=== PATIENT | female | born 1975 | race Caucasian/White ===

== ENCOUNTER 2017-10-05 14:55 | Emergency (ER) | payer MEDICAID, SELFPAY ==
[2017-10-05 14:56] VITALS: BP 137/100; PULSE 107; RESP 16; TEMP 36.7; O2SAT 97; BMI 29.5
--- NOTE | 2017-10-05 15:09 | EKG12_ITS ---
Test Reason : CP Blood Pressure : / mmHG Vent. Rate : 100 BPM Atrial Rate : 100 BPM P-R Int : 118 ms QRS Dur : 074 ms QT Int : 350 ms P-R-T Axes : 049 049 038 degrees QTc Int : 451 ms Normal sinus rhythm Normal ECG Confirmed by DONNA GAMING MD ([id number]), field map editor JESSICA SOTELO ([id number]) on 10/07/2017 3:21:19 PM Referred By: BONNIE Confirmed By:DONNA GAMING MD
--- NOTE | 2017-10-05 15:10 | CT_ITS ---
STUDY: CTA CHEST REASON FOR EXAM: Female, 42 years old. Chest pain and left rib pain increased with breathing. History of smoking and hypertension. RADIATION DOSAGE (If Supplied By Facility): CTDIvol = ( 6.79 ) mGy, DLP = ( 333.92 ) mGycm TECHNIQUE: The examination was performed with the intravenous administration of 75 ml of Isovue 370 contrast material. Post-processing of the angiographic images was performed, with multiplanar reformation and 3D reconstruction. Individualized dose optimization techniques were used for this CT. COMPARISON: None. FINDINGS: Normal enhancement of the main pulmonary artery and right and left pulmonary arteries. Normal enhancement of the bilateral peripheral pulmonary arteries. There is no demonstrated pulmonary embolism. Normal thoracic aorta without aneurysm. Aberrant right subclavian artery which passes posteriorly to the trachea and esophagus without aneurysm. There is no demonstrated aortic dissection. Normal heart and pericardium. Negative for coronary calcifications. Normal mediastinum. Normal hilar regions. Normal visualized trachea and bronchi. The lungs are well expanded. Normal pulmonary parenchyma. Normal pleura. Bilateral small posterior fatty diaphragmatic hernias/[place] herniations. Normal chest wall structures. Normal osseous structures. Normal visualized upper abdomen. CT/CTA Chest W/WO Contrast IMPRESSION: Negative for pulmonary embolus. Normal thoracic aorta. Aberrant right subclavian artery. Negative for coronary calcifications. No acute pulmonary findings. Negative for pleural effusion. Bilateral small posterior fatty diaphragmatic hernias/[place] herniation. Electronically Signed: Malena Garcia MD at 16:53 EDT , Service support ,
--- NOTE | 2017-10-05 15:14 | ED.DCSUM_ITS ---
- ER Visit Summary Date of Service: 10/05/17 Chief Complaint: Chest pain History of Present Illness: The patient is a 42 F presenting with left lateral chest wall pain. It is worsened with deep inspiration. She denies shortness of breath. Denies change with exertion. Denies cough or fever. She went to urgent care and they were concerned about possibility of PE. She has no PE/DVT risk factors. She is a smoker. She has a family history of early heart disease. No other coronary artery disease risk factors. Physical Examination: Vitals are stable. Patient is afebrile. Alert no acute distress. HEENT exam is unremarkable. Neck is supple. Lungs are clear and equal bilaterally. Mild left lateral chest wall tenderness with no crepitus Heart is regular and tachycardic Abdomen is soft nontender nondistended. No guarding or rebound. Extremities are unremarkable. Skin is warm and dry. No rash. No focal neurologic deficit. Remainder of exam is unremarkable. Emergency Department Course and Treatment: Patient is given Toradol IV. EKG is sinus rhythm rate of 100, no acute ischemic changes. CBC, chemistries unremarkable. Troponin is negative. CTA chest shows no PE or dissection. Repeat troponin was obtained and is negative. She is resting comfortably in the ED on reevaluation. She is advised to follow-up with her primary care physician. Advised return to ED for worsening complaints. Disposition: Discharge home Impression: Left chest wall pain This note was generated with [employer] dictation software. It may contain incorrect words, spelling, and punctuation that were not noted in review of the chart prior to signing ED Disposition - Plan for ED Patient: Chief Complaint: Chest Other Referrals: Donald Henderson MD [Primary Care Provider] -
[2017-10-05] MEDS: Ketorolac 15 MG/ML Vial IV (15:31)
[2017-10-05 15:44] LABS: Absolute Lymphocyte Count 1.73 X10^3/ul (0.83-4.51); Absolute Neutrophil Count 5.1 X10^3/uL (2.0-7.7); Basophil# 0.02 X10^3/uL; Basophil% 0.3 % (0-1); Eosinophil# 0.15 X10^3/uL; Hematocrit 42.4 % (37-47); Hemoglobin 14.2 g/dl (12.0-15.0); Lymphocyte # 1.73 X10^3/ul (4.0); Lymphocyte % 23.3 % (19-41); Mean Corp Hgb Conc 33.5 g/gl (32-36); Mean Corpuscular Hgb 32.3 pg (27.0-32.0); Mean Corpuscular Volume 96.4 fL (81-99); Mean Platelet Vol. 10.6 fl (6.2-12.0); Monocyte# 0.39 X10^3/uL; Monocyte% 5.3 % (0-10); Neutrophil # 5.12 X10^3/uL (2.7-7.7); Neutrophil % 69.1 % (47-70); Platelet Count 216 K/mm3 (150-450); RBC Distribution Width CV 12.2 % (11.6-14.6); RBC Distribution Width SD 42.8 fl (35.1-43.9); White Blood Count 7.4 K/mm3 (4.4-11.0)
[2017-10-05 15:45] LABS: POSITIVE COUNT NO; POSITIVE DIFFERENTIAL NO; POSITIVE MORPHOLOGY NO
[2017-10-05 16:00] LABS: Anion Gap 10 (5-15); BUN 10 mg/dL (7-18); BUN/Creat Ratio 13.7 RATIO (10-20); Calcium,Total 8.7 mg/dL (8.5-10.1); Chloride 103 mmol/L (98-107); Creatinine, Serum 0.73 mg/dL (0.55-1.02); EST Glomerular Filtration Rate 93 mL/min (>60); Est Glom Filt Rate - Afr Amer 113 mL/min (>60); Estimated Creatinine Clearance 76.53 ml/min; Glucose 91 mg/dL (74-106); Potassium 3.8 mmol/L (3.5-5.1); Sodium Level 139 mmol/L (136-145)
[2017-10-05 17:44] VITALS: BP 125/67; PULSE 87; RESP 18; O2SAT 96
--- NOTE | 2017-10-05 19:27 | ED.DEP ---
ED Disposition - Plan for ED Patient: Chief Complaint: Chest Other Instructions: ED Chest Pain Atypical Unkn Cause Prescriptions: Naproxen [Naprosyn] 500 mg PO BID PRN #20 tablet Referrals: Donald Henderson MD [Primary Care Provider] -
[2017-10-05 19:45] VITALS: BP 126/61; PULSE 90; RESP 18; O2SAT 100
== END 2017-10-05 19:46 | disposition home or self-care (01) ==
PROVIDERS: Emergency Provider Emergency Medicine; Family Provider Internal Medicine; PCP Internal Medicine
DX: R07.89 Other chest pain (principal); F17.200 Nicotine dependence, unspecified, uncomplicated; Z82.49 Family history of ischemic heart disease and other diseases of the circulatory system
CPT/HCPCS: 71275; 80048; 84484; 85025; 93005; 99284; Q9967; A4216

== ENCOUNTER → 2017-10-14 10:24 | Outpatient (CLI) | payer MEDICAID, SELFPAY ==
--- NOTE | 2017-10-14 10:35 | RAD_ITS ---
STUDY: X-RAY - CERVICAL SPINE REASON FOR EXAM: Female, 42 years old. Neck pain. TECHNIQUE: 6 view(s) of the cervical spine were obtained. COMPARISON: None FINDINGS: Normal anterior atlantoaxial articulation. Normal odontoid process. Normal cervical lordosis. Normal vertebral bodies and endplates. There is minimal disc space narrowing most marked at C6-7. Normal visualized intervertebral neuroforamina. There is no evidence of acute fracture or loss of vertebral axial height. There is maintenance of normal alignment. The soft tissue structures are unremarkable. RAD/Cerv Spine 4 or 5 Views IMPRESSION: Mild disc degeneration at C6-7. Electronically Signed: Gianluca Campos DO at 14:49 EDT Tel [phone], Service support ,
== END ==
PROVIDERS: Family Provider Internal Medicine; PCP Internal Medicine; Visit Provider Orthopaedic Surgery
DX: M54.2 Cervicalgia (principal)
CPT/HCPCS: 72050

== ENCOUNTER 2017-10-31 12:40 | Emergency (ER) | payer MEDICAID, SELFPAY ==
[2017-10-31 12:41] VITALS: BP 140/108; PULSE 89; RESP 16; TEMP 37.2; O2SAT 98; BMI 29.5
[2017-10-31 12:58] VITALS: BP 143/92; PULSE 88; RESP 17; O2SAT 98
--- NOTE | 2017-10-31 13:07 | EKG12_ITS ---
Test Reason : CP Blood Pressure : / mmHG Vent. Rate : 087 BPM Atrial Rate : 087 BPM P-R Int : 110 ms QRS Dur : 078 ms QT Int : 356 ms P-R-T Axes : 042 043 055 degrees QTc Int : 428 ms Sinus rhythm with short [place] Otherwise normal ECG Confirmed by AMBERLY COTA, DONNA ([id number]), editor publications JESSICA SOTELO ([id number]) on 11/04/2017 1:49:22 PM Referred By: CLAUDINE/FARHAN Confirmed By:DONNA GAMING MD
--- NOTE | 2017-10-31 13:10 | RAD_ITS ---
STUDY: X-RAY CHEST REASON FOR EXAM: Female, 42 years old. Sternal chest pain. Dizziness and diaphoresis. TECHNIQUE: Single AP portable view of the chest. COMPARISON: None. FINDINGS: EKG electrodes are seen. The lungs are clear and expanded. There is no demonstrated pleural abnormality. Normal size heart. Normal mediastinum and lang. Normal visualized pulmonary arteries. There is atherosclerotic tortuosity of the aortic arch and descending thoracic aorta. Normal visualized thoracic spine. Normal visualized ribs, clavicles, and shoulders. There is no demonstrated abnormality of the visualized soft tissue structures of the upper abdomen. RAD/Chest 1 View (Portable) IMPRESSION: No acute abnormality is seen. Electronically Signed: Aaron Zhong MD at 13:44 EDT Tel [phone], Service support ,
[2017-10-31 13:20] LABS: Absolute Neutrophil Count 4.4 X10^3/uL (2.0-7.7); Basophil# 0.03 X10^3/uL; Basophil% 0.4 % (0-1); Eosinophil# 0.19 X10^3/uL; Eosinophils% 2.8 % (0-5); Hematocrit 43.9 % (37-47); Hemoglobin 14.8 g/dl (12.0-15.0); Mean Corp Hgb Conc 33.7 g/gl (32-36); Mean Corpuscular Hgb 32.2 pg (27.0-32.0); Mean Corpuscular Volume 95.4 fL (81-99); Mean Platelet Vol. 10.5 fl (6.2-12.0); Monocyte# 0.44 X10^3/uL; Monocyte% 6.6 % (0-10); Neutrophil % 66.1 % (47-70); Platelet Count 207 K/mm3 (150-450); RBC Distribution Width CV 12.3 % (11.6-14.6); White Blood Count 6.7 K/mm3 (4.4-11.0)
[2017-10-31 13:21] LABS: POSITIVE COUNT NO; POSITIVE DIFFERENTIAL NO; POSITIVE MORPHOLOGY NO
[2017-10-31 13:38] LABS: Anion Gap 7 (5-15); BUN 13 mg/dL (7-18); BUN/Creat Ratio 16.5 RATIO (10-20); Chloride 105 mmol/L (98-107); Creatinine, Serum 0.79 mg/dL (0.55-1.02); EST Glomerular Filtration Rate 85 mL/min (>60); Est Glom Filt Rate - Afr Amer 103 mL/min (>60); Estimated Creatinine Clearance 70.72 ml/min; Glucose 73 mg/dL (74-106); Potassium 3.9 mmol/L (3.5-5.1); Sodium Level 138 mmol/L (136-145)
[2017-10-31 15:04] VITALS: O2SAT 98
[2017-10-31 15:05] VITALS: BP 130/89; PULSE 67; RESP 16; O2SAT 98
--- NOTE | 2017-10-31 15:06 | ED.VISSUMM ---
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 Henderson. She reports 10:00 this morning while walking around she had the onset of a left-sided chest pain. She describes this as a pounding heart. States that it lasts approximately 30 minutes. Nothing seemed to make this worse including exertion or breathing. Also, nothing made this better. Pain was 10 out of 10 at worst and she is pain-free currently. She does report that she got clammy and short of breath when this occurred. Patient reports that this is the third time this week that she has had an episode like this. They are not related to exertion. She then relates that she began Wellbutrin 2 weeks ago for smoking sensation and doubled her dose earlier this week. Physical Examination: Vitals: Stable. Afebrile. General: Well-nourished and well-developed. Head: Normocephalic atraumatic. Neck: Supple, no lymphadenopathy. No JVD. Nontender. Cardiovascular: Regular rate and rhythm. No murmurs. Respiratory: No respiratory distress. Clear to auscultation bilaterally. Abdominal: Soft, nontender, nondistended, normal bowel sounds. No guarding, rebound, or peritoneal signs. Back: Nontender. Extremities: Nontender, no edema. Skin: Normal color, no rash. Neurologic: Alert and oriented ?3. Cranial nerves II through XII are intact. Normal strength and sensation. Psych: Normal affect. Test Results: EKG is sinus at 87 with a short [place] interval of 78 and is otherwise normal. Troponin is negative. Chem-7 is more for glucose 73. CBC is normal. Chest x-ray is normal. Emergency Department Course and Treatment: Had a prolonged discussion the patient about her symptoms and potential causes. This does not seem to be cardiac in etiology. Treatment Plan: I have suggested that she stop the Wellbutrin and follow-up with her primary care physician in 3-5 days not improving. Return to the emergency department for any worsening symptoms. Disposition: To home in improved and stable condition. Impression: 1. Atypical chest pain. This note was generated with [employer] software. It may contain incorrect words, spelling, and punctuation that were not noted in review of the chart prior to signing ED Disposition - Plan for ED Patient: Disposition: Home or Assisted Living Chief Complaint: Chest Pain Instructions: ED Chest Pain Atypical Unkn Cause Referrals: Donald Henderson MD [Primary Care Provider] - 3-5 Days if not improving
[2017-10-31] MEDS: 0.9% Normal Saline 1,000 ML 1000 ML IV (15:09)
--- NOTE | 2017-10-31 15:13 | ED.DCSUM_ITS ---
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 Henderson. She reports 10:00 this morning while walking around she had the onset of a left- sided chest pain. She describes this as a pounding heart. States that it lasts approximately 30 minutes. Nothing seemed to make this worse including exertion or breathing. Also, nothing made this better. Pain was 10 out of 10 at worst and she is pain-free currently. She does report that she got clammy and short of breath when this occurred. Patient reports that this is the third time this week that she has had an episode like this. They are not related to exertion. She then relates that she began Wellbutrin 2 weeks ago for smoking sensation and doubled her dose earlier this week. Physical Examination: Vitals: Stable. Afebrile. General: Well-nourished and well-developed. Head: Normocephalic atraumatic. Neck: Supple, no lymphadenopathy. No JVD. Nontender. Cardiovascular: Regular rate and rhythm. No murmurs. Respiratory: No respiratory distress. Clear to auscultation bilaterally. Abdominal: Soft, nontender, nondistended, normal bowel sounds. No guarding, rebound, or peritoneal signs. Back: Nontender. Extremities: Nontender, no edema. Skin: Normal color, no rash. Neurologic: Alert and oriented ?3. Cranial nerves II through XII are intact. Normal strength and sensation. Psych: Normal affect. Test Results: EKG is sinus at 87 with a short [place] interval of 78 and is otherwise normal. Troponin is negative. Chem-7 is more for glucose 73. CBC is normal. Chest x-ray is normal. Emergency Department Course and Treatment: Had a prolonged discussion the patient about her symptoms and potential causes. This does not seem to be cardiac in etiology. Treatment Plan: I have suggested that she stop the Wellbutrin and follow-up with her primary care physician in 3-5 days not improving. Return to the emergency department for any worsening symptoms. Disposition: To home in improved and stable condition. Impression: 1. Atypical chest pain. This note was generated with [employer] software. It may contain incorrect words, spelling, and punctuation that were not noted in review of the chart prior to signing ED Disposition - Plan for ED Patient: Disposition: Home or Assisted Living Chief Complaint: Chest Pain Instructions: ED Chest Pain Atypical Unkn Cause Referrals: Donald Henderson MD [Primary Care Provider] - 3-5 Days if not improving
[2017-10-31 15:21] VITALS: BP 129/90; PULSE 61; RESP 15; O2SAT 98
== END 2017-10-31 15:22 | disposition home or self-care (01) ==
PROVIDERS: Emergency Provider Emergency Medicine; Family Provider Internal Medicine; PCP Internal Medicine
DX: R07.89 Other chest pain (principal); R23.1 Pallor; R00.2 Palpitations; R06.00 Dyspnea, unspecified; R42 Dizziness and giddiness; R61 Generalized hyperhidrosis; I10 Essential (primary) hypertension; M54.9 Dorsalgia, unspecified; M54.2 Cervicalgia; G89.29 Other chronic pain; Z90.710 Acquired absence of both cervix and uterus; F17.200 Nicotine dependence, unspecified, uncomplicated; Z79.82 Long term (current) use of aspirin; Z79.899 Other long term (current) drug therapy
CPT/HCPCS: 71045; 80048; 84484; 85025; 93005; 96360; 99284

== ENCOUNTER 2017-11-04 09:12 | Emergency (ER) | payer MEDICAID, SELFPAY ==
[2017-11-04 09:13] VITALS: BP 155/105; PULSE 78; RESP 18; TEMP 36.4; O2SAT 99; BMI 29.6
--- NOTE | 2017-11-04 09:44 | ED.DCSUM_ITS ---
- ER Visit Summary Date of Service: 11/04/17 Chief Complaint: Hematemesis History of Present Illness: The patient is a 42 F presenting for evaluation due to concern for hematemesis. Patient states that this morning she woke up and felt nauseous. Patient states that she vomited and there were small flecks of blood in the toilet. She states that it was no more than a spoonful. Patient states that following that she had 2 other episodes of emesis where she felt that potentially she was vomiting clotted blood. She does endorse that she has some mild epigastric pain. She denies that she has been having any change in color of her stools or dark tarry stools. Patient does have a history of frequent alcohol use, up to 6 beers per day. She states that she has had a upper endoscopy 2 years ago without any evidence of GI bleed or ulcer. She is not on any sort of anticoagulants. Patient does take Protonix and Carafate. Physical Examination: Vital signs are within normal limits, patient is afebrile. General: Patient is well-nourished well-developed and in no acute distress. Head: Normocephalic, atraumatic Eyes: Pupils equal round and reactive bilaterally, extra occular motion intact bialterally ENT: Moist mucous membranes, no evidence of blood in the posterior pharynx Neck: Supple, no lymphadenopathy, no JVD, no meningismus CVS: Heart regular rate and rhythm, no murmurs, rubs or gallops, radial pulses 2 + bilaterally Resp: Respirations nondistressed, lung sounds clear bilaterally, no evidence of crepitus on palpation Abdomen: Soft, nontender, nondistended, no palpable masses, normal bowel sounds Back: Nontender Extremities: Nontender, atraumatic, active full range of motion, no peripheral edema Skin: warm, no rashes, no petechia Neuro: Alert and oriented x 4, CN 2-12 intact, no lateralizing neurological defecits Psyc: Normal affect Test Results: CBC demonstrates hemoglobin of 15.1, chemistry, liver, and coagulation panels are within normal limits Emergency Department Course and Treatment: Patient presented due to concern for hematemesis. Patient was evaluated for stability with lab tests, she is found to have a normal stable hemoglobin, and a normal liver panel and coagulation panel. She has normal vital signs, no tachycardia, and through a 90 minute of observation in the emergency department she did not have any further episodes of hematemesis. She was treated with a GI cocktail and Zofran did have some symptomatic improvement. Patient states that she drinks about 6 beers a day, but she does state that intermittently she will go a couple of days without drinking. I do not believe that the patient would be at risk for alcohol withdrawal, but I believe she likely has an element of some alcoholic gastritis as she frequently drinks 6 beers a day. Patient was recommended to discontinue her alcohol use, and to continue taking her Protonix and Carafate. She will be given follow-up information with GI. She was given signs and symptoms for which to return. Disposition: Discharge Impression: 1. Alcoholic gastritis This note was generated with [employer] dictation software. It may contain incorrect words, spelling, and punctuation that were not noted in review of the chart prior to signing ED Disposition - Plan for ED Patient: Disposition: Home or Assisted Living Chief Complaint: GI Bleed Diagnosis: Gastritis Instructions: ED PUD Vs Gastritis Referrals: Jeffrey Richardson MD [STAFF PHYSICIAN] - 1-2 Weeks
[2017-11-04] MEDS: Ondansetron 4 MG/2 ML Vial IV (09:51)
[2017-11-04 09:55] LABS: Absolute Lymphocyte Count 1.78 X10^3/ul (0.83-4.51); Absolute Neutrophil Count 4.2 X10^3/uL (2.0-7.7); Basophil# 0.04 X10^3/uL; Basophil% 0.6 % (0-1); Eosinophil# 0.18 X10^3/uL; Eosinophils% 2.7 % (0-5); Hemoglobin 15.1 g/dl (12.0-15.0); Lymphocyte # 1.78 X10^3/ul (4.0); Lymphocyte % 26.5 % (19-41); Mean Corp Hgb Conc 34.3 g/gl (32-36); Mean Corpuscular Hgb 32.5 pg (27.0-32.0); Mean Corpuscular Volume 94.6 fL (81-99); Mean Platelet Vol. 10.3 fl (6.2-12.0); Monocyte% 7.5 % (0-10); Neutrophil % 62.6 % (47-70); POSITIVE COUNT NO; POSITIVE DIFFERENTIAL NO; POSITIVE MORPHOLOGY NO; Platelet Count 198 K/mm3 (150-450); RBC Distribution Width CV 12.1 % (11.6-14.6); RBC Distribution Width SD 41.5 fl (35.1-43.9); Red Blood Count 4.65 M/mm3 (4.2-5.4); White Blood Count 6.7 K/mm3 (4.4-11.0)
[2017-11-04 10:05] LABS: International Normalized Ratio 0.9; Partial Thromboplast Time 28.8 Seconds (24.1-36.2); Prothrombin Time (Protime)PT. 11.7 SECONDS (11.7-14.9)
[2017-11-04 10:13] LABS: ALB/GLOB Ratio 1.1 RATIO (0.9-2.4); AST(SGOT) 14 U/L (15-37); Alanine Aminotransfer ALT/SGPT 21 U/L (13-56); Alkaline Phosphatase 67 U/L (45-117); Anion Gap 8 (5-15); BUN 12 mg/dL (7-18); BUN/Creat Ratio 15.3 RATIO (10-20); Calcium,Total 9.5 mg/dL (8.5-10.1); Chloride 103 mmol/L (98-107); Creatinine, Serum 0.79 mg/dL (0.55-1.02); EST Glomerular Filtration Rate 85 mL/min (>60); Est Glom Filt Rate - Afr Amer 103 mL/min (>60); Estimated Creatinine Clearance 70.72 ml/min; Globulin 3.8 g/dL (2.2-4.2); Glucose 94 mg/dL (74-106); Protein, Total 7.8 g/dL (6.4-8.2); Sodium Level 140 mmol/L (136-145)
== END 2017-11-04 11:24 | disposition home or self-care (01) ==
PROVIDERS: Emergency Provider Emergency Medicine; Family Provider Internal Medicine; PCP Internal Medicine
DX: K29.20 Alcoholic gastritis without bleeding (principal); F10.10 Alcohol abuse, uncomplicated; Y90.9 Presence of alcohol in blood, level not specified; K21.9 Gastro-esophageal reflux disease without esophagitis; Z72.0 Tobacco use
CPT/HCPCS: 80053; 85025; 85610; 85730; 93225; 93226; 96374; 99283; A4216; J2405

== ENCOUNTER → 2017-11-04 11:33 | Outpatient (CLI) | payer MEDICAID, SELFPAY | PROVIDERS: Family Provider Internal Medicine; PCP Internal Medicine | DX: R00.2 Palpitations (principal) | CPT/HCPCS: 93225; 93226 ==

== ENCOUNTER 2018-07-03 12:26 | Emergency (ER) | payer MEDICAID, SELFPAY ==
[2018-07-03 12:26] VITALS: BP 161/99; PULSE 73; RESP 16; O2SAT 98
[2018-07-03 12:27] VITALS: PULSE 93; RESP 16; TEMP 36.7; O2SAT 95; BMI 29.7
--- NOTE | 2018-07-03 12:40 | EKG12_ITS ---
Test Reason : CHEST PAIN Blood Pressure : / mmHG Vent. Rate : 085 BPM Atrial Rate : 085 BPM P-R Int : 122 ms QRS Dur : 076 ms QT Int : 372 ms P-R-T Axes : 056 060 062 degrees QTc Int : 442 ms Normal sinus rhythm Normal ECG Confirmed by AMBERLY COTA, DONNA ([id number]), online content editor JESSICA SOTELO ([id number]) on 07/08/2018 3:35:52 PM Referred By: DC Confirmed By:DONNA GAMING MD
--- NOTE | 2018-07-03 12:40 | RAD_ITS ---
STUDY: X-RAY CHEST REASON FOR EXAM: Female, 43 years old. Chest pain. TECHNIQUE: Single AP portable upright view of the chest. COMPARISON: Portable AP upright chest x-ray October 31, 2017. FINDINGS: The lungs are clear and expanded. There is no demonstrated pleural abnormality. Normal size heart. Normal mediastinum and lang. Normal visualized pulmonary arteries. Normal visualized aortic arch and descending thoracic aorta. Normal visualized thoracic spine. Normal visualized ribs, clavicles, and shoulders. There is no demonstrated abnormality of the visualized soft tissue structures of the upper abdomen. RAD/Chest 1 View (Portable) IMPRESSION: Normal x-ray examination of the chest. Electronically Signed: Raymond Velez MD at 13:12 EST , Service support ,
--- NOTE | 2018-07-03 12:42 | ED.DCSUM_ITS ---
- ER Visit Summary Date of Service: 07/03/18 Chief Complaint: Pain History of Present Illness: The patient is a 43 F with chest pain. The symptoms started around 10 AM today. The pain is all over. Associated with shakiness and feeling like she is going to pass out. Feels hot flashes. No sweats. No vomiting. No shortness of breath. No history of heart disease, PE, aortic disease. No fevers or recent illness. Patient is a smoker. History of hypertension. Physical Examination: Afebrile and vital signs unremarkable except for hypertension. Alert and oriented. No acute distress. Heart regular rate and rhythm. Lungs clear. Abdomen soft and nontender. Skin, calves, pulses unremarkable. Test Results: EKG shows sinus rhythm at a rate of 85. No sign of infarction or ischemia. Labs and chest x-ray pending. Emergency Department Course and Treatment: Patient had aspirin prior to arrival. Declined pain medicine here. She was placed on a monitor. Will evaluate. Labs unremarkable except for glucose of 66. Patient will be eating after discharge. Troponin normal. Chest x-ray normal. Patient is low risk for ACS. PERC negative. Appropriate for outpatient follow- up. She is feeling better. Follow-up with primary care. Return for any new or worsening issues. Treatment Plan: As above Disposition: Discharge Impression: 1. Chest pain unclear etiology This note was generated with [employer] dictation software. It may contain incorrect words, spelling, and punctuation that were not noted in review of the chart prior to signing ED Disposition - Plan for ED Patient: Chief Complaint: Chest Pain Referrals: Donald Henderson MD [Primary Care Provider] -
[2018-07-03 12:43] VITALS: O2SAT 96
[2018-07-03 13:48] LABS: Absolute Lymphocyte Count 2.24 X10^3/ul (0.83-4.51); Absolute Neutrophil Count 3.4 X10^3/uL (2.0-7.7); Basophil# 0.03 X10^3/uL; Basophil% 0.5 % (0-1); Eosinophil# 0.08 X10^3/uL; Eosinophils% 1.3 % (0-5); Hematocrit 42.6 % (37-47); Hemoglobin 14.5 g/dl (12.0-15.0); Lymphocyte # 2.24 X10^3/ul (4.0); Lymphocyte % 35.8 % (19-41); Mean Corpuscular Hgb 32.7 pg (27.0-32.0); Mean Corpuscular Volume 95.9 fL (81-99); Mean Platelet Vol. 10.2 fl (6.2-12.0); Monocyte# 0.46 X10^3/uL; Monocyte% 7.4 % (0-10); Neutrophil # 3.43 X10^3/uL (2.7-7.7); Neutrophil % 54.8 % (47-70); Platelet Count 218 K/mm3 (150-450); RBC Distribution Width SD 41.4 fl (35.1-43.9); Red Blood Count 4.44 M/mm3 (4.2-5.4); White Blood Count 6.3 K/mm3 (4.4-11.0)
[2018-07-03 13:54] LABS: POSITIVE COUNT NO; POSITIVE DIFFERENTIAL NO; POSITIVE MORPHOLOGY NO
[2018-07-03 14:01] LABS: Anion Gap 6 (5-15); BUN 6 mg/dL (7-18); BUN/Creat Ratio 8.5 RATIO (10-20); Calcium,Total 9.2 mg/dL (8.5-10.1); Chloride 103 mmol/L (98-107); Creatinine, Serum 0.71 mg/dL (0.55-1.02); EST Glomerular Filtration Rate 96 mL/min (>60); Est Glom Filt Rate - Afr Amer 116 mL/min (>60); Estimated Creatinine Clearance 77.89 ml/min; Glucose 66 mg/dL (74-106); Potassium 3.6 mmol/L (3.5-5.1); Sodium Level 138 mmol/L (136-145)
[2018-07-03 14:35] VITALS: BP 122/97; PULSE 62; RESP 18; O2SAT 99
--- NOTE | 2018-07-03 14:54 | ED.DEP ---
ED Disposition - Plan for ED Patient: Chief Complaint: Chest Pain Instructions: ED Chest Pain Atypical Unkn Cause Referrals: Donald Henderson MD [Primary Care Provider] -
[2018-07-03 15:07] VITALS: BP 161/89; PULSE 67; RESP 13; O2SAT 97
--- OUTSIDE RECORDS SUMMARY | 2018-08-19 08:11 | XMS RPT_ITS ---
:1975 Author Organization OHIP Support Name Relationship Address Phone SUSHILA VILLEGASY Unavailable [address] + [place] [address] [employer] Unavailable [address] + [place] [address] EYAD WOODSONLDA Unavailable [address] + [place] [address] BAKARI JONAS Unavailable [address] + [place] [address] [employer] Unavailable [address] + [place] [address] CHINTAN HOA Unavailable [address] + [place] [address] BAKARI JONAS Unavailable [address] + [place] [address] [employer] Unavailable [address] + [place] [address] BAKARI JONAS Unavailable [address] + [place] [address] [employer] Unavailable [address] + [place] [address] BAKARI, JONAS Unavailable [address] + [place] [address] [employer] Unavailable [address] + [place] [address] BAKARI JONAS Unavailable [address] + [place] [address] [employer] Unavailable [address] + [place] [address] BAKARI JONAS Unavailable [address] + [place] [address] [employer] Unavailable [address] + [place] [address] JONAS VILLEGAS Unavailable [address] + [place] [address] [employer] Unavailable [address] + [place] [address] JONAS VILLEGAS Unavailable [address] + [place] [address] [employer] Unavailable [address] + [place] [address] YOVANNY MOLINA Unavailable [address] + [place] [id number] [employer] Unavailable [address] + [place] [address] Care Team Providers Name Role Phone KAMILAH CARLIN Referring Unavailable JIMI JIM Admitting Unavailable JIMI JIM Attending Unavailable Josselin Conteh Attending Unavailable Henderson, Donald Referring Unavailable Henderson, Donald Primary Care Unavailable Henderson, Donald Primary Care Unavailable Demetrice Victor Attending Unavailable Henderson, Donald Primary Care Unavailable Perfecto Alves Attending Unavailable Gregoria Gaviria Attending Unavailable Santiago, Donald Referring Unavailable Josselin Conteh Attending Unavailable Josselin Conteh Referring Unavailable Henderson, Donald Primary Care Unavailable Gregoria Gaviria Attending Unavailable Henderson, Donald Referring Unavailable Henderson, Donald Primary Care Unavailable Henderson, Donald Primary Care Unavailable Ish Mcdonald Attending Unavailable Henderson, Donald Primary Care Unavailable Az Thomas Attending Unavailable LUCY CROSS Attending Unavailable Henderson, Donald Primary Care Unavailable LUCY CROSS Consulting Unavailable Myke Waggoner Attending Unavailable Myke Waggoner Referring Unavailable HENDERSON, WADE Attending Unavailable HENDERSON, WADE Referring Unavailable HENDERSON, WADE Attending Unavailable HENDERSON, WADE Referring Unavailable RADHA CÁRDENAS (COMPLETIONS MANAGER) Attending Unavailable BAILEY ZHANG (COMPLETIONS MANAGER) Attending Unavailable HENDERSON, WADE Referring Unavailable HENDERSON, WADE Referring Unavailable BAILEY ZHANG (COMPLETIONS MANAGER) Referring Unavailable CHARLENE LLANOS (DENIAL MANAGEMENT REPRESENTATIVE) Attending Unavailable BAILEY ZHANG (COMPLETIONS MANAGER) Referring Unavailable JIMI JIM Referring Unavailable CHARLENE LLANOS (DENIAL MANAGEMENT REPRESENTATIVE) Attending Unavailable DONALD HENDERSON Referring Unavailable THORMARQUIS, CHARLENE (DENIAL MANAGEMENT REPRESENTATIVE) Referring Unavailable DONALD HENDERSON Attending Unavailable DONALD HENDERSON Referring Unavailable THORPE, CHARLENE (DENIAL MANAGEMENT REPRESENTATIVE) Referring Unavailable THORPE, CHARLENE (DENIAL MANAGEMENT REPRESENTATIVE) Referring Unavailable KAMILAH CARLIN Referring Unavailable Donald Henderson MD Primary Care Unavailable PROBLEMS PROBLEMS DATE TYPE CONDITION / CODE ATTENDING STATUS SOURCE 07/16/2018 Unknown G56.01 - Carpal Chicorelli, Active [place] tunnel syndrome, [facility] right upper limb / Hospital G56.01(ICD-10) Repository 02/26/2018 Active Nausea / NA Active [facility] R11.0(ICD-10) Clinic Main [place] Rep[facility] 02/17/2018 Active Right upper NA Active [facility] quadrant pain / Clinic Main R10.11(ICD-10) [facility] [facility] 02/17/2018 Active Left upper NA Active [facility] quadrant pain / Clinic Main R10.12(ICD-10) [facility] 12/31/2017 Active Epigastric pain / LARRY, Active [facility] R10.13(ICD-10) [facility] T Clinic Other [place] Rep[facility] 12/31/2017 Active Hematemesis / LARRY, Active [facility] K92.0(ICD-10) [facility]IMI T Clinic Other [place] [facility] 12/31/2017 Active Change in bowel LARRY, Active [facility] habit / JIMI T Clinic Other R19.4(ICD-10) [facility] 12/18/2017 Active 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, Clinic Main unspecified / [place] N28.9(ICD-10) Repository 11/25/2017 Active Essential NA Active [facility] (primary) Clinic Main hypertension / [place] I10(ICD-10) Repository 11/28/2017 Unknown R00.2 - Myke Waggoner Active [place] Palpitations / Community R00.2(ICD-10) Hospital Repository 10/30/2017 Unknown G56.03 - Carpal Chicorelli, Active [place] tunnel syndrome, [facility] bilateral upper Hospital limbs / Repository G56.03(ICD-10) 10/14/2017 Unknown M54.2 - Josselin Conteh Active [place] Cervicalgia / Community M54.2(ICD-10) Hospital Repository 09/25/2017 Active Elevated NA Active [facility] blood-pressure Clinic Main reading, without [place] diagnosis of Repository hypertension / R03.0(ICD-10) 09/23/2017 Active Unknown / SANTIAGO, Active [place] UNK(Unknown) WADE Clinic Main [place] Repository 08/13/2017 Active Other nondisplaced NA Active [place] fracture of Clinic Other seventh cervical [place] vertebra, Repository subsequent encounter for fracture with routine healing / S12.691D(ICD-10) 08/13/2017 Admitting Unknown / NA Active [place] [facility] diagnosis UNK(Unknown) [facility] Repository PROCEDURES PROCEDURES No Procedure Records FoundRESULTS RESULTS ORTHOPEDIC VISIT Observed: 07/17/2018 Status: F Source: [place] REPORT 12:16 PM [facility] REPOSITORY [facility] [address] [place] [address] OFFICE VISIT Date of Service: 07/16/18 MR#: [id number] Acct: [id number] Name: ALLISON DOSHI Rep #: [id number] : 1975 Provider: Gregoria Gaviria DO Age/Sex: 43/F [place] [facility] [place] [place]: Signed Intake Vital Signs07/16/18 Body Mass Index (BMI) 29.7 Intake Visit Reasons: Bilat wrist Allergies Sulfa (Sulfonamide Antibiotics) Allergy (Verified 07/03/18 12:27) Rash Medications Pantoprazole Sodium [Protonix] 40 mg PO DAILY 06/16/16 [History Confirmed 11/04/17] Sucralfate 1 gm PO BID 06/13/17 [History Confirmed 11/04/17] azhaohi-gwwontulwvzeq-mmyuerfz 250 mg-250 mg-65 mg tablet 1 tab PO ONCE 10/01/17 [History Confirmed 11/04/17] gabapentin 300 mg capsule 600 mg PO TID cap 10/01/17 [History Confirmed 11/04/17] Naproxen [Naprosyn] 500 mg PO BID PRN #20 tab 10/05/17 [Rx Confirmed 11/04/17] bisoprolol 2.5 mg-hydrochlorothiazide 6.25 mg tablet 1 tab PO QDAY 10/30/17 [History Confirmed 11/04/17] PFSH Medical History Back pain (Acute) Neck pain (Acute) Hypertension (Chronic) H/O: hysterectomy (Inactive) Family History Other Alzheimer's dementia Cancer Congestive heart failure Diabetes Hypertension Myocardial infarction Social History Smoking Status: Current every day smoker HPI Suzie wrist: Details: ALLISON DOSHI is a 43 year old F here today for bilateral carpal tunnel. She had injections in the past that was helpful. She continues to have neck pain and radiating pain and is waiting for upcoming appointment with Dr Grey. She has n/t in the thumb, index and middle finger of the right side, her left is not hurting. Ortho Exam Right Wrist/Hand Skin/Wound: Yes CDI Contralateral Normal: No A1 guillermo trigger: No Right Wrist: Yes Durken's Test, ROM-Pronation 0-80, ROM-Supination 0-90, ROM-Extension 0-60 and ROM-Flexion 0-80 Assessment AND Plan 1. Carpal tunnel syndrome of right wrist G56.01 Plan IF the conservative care fails we will discuss a carpal tunnel release, reviewed the procedure and post op restrictions. . Obtained consent for injection. Under sterile conditions, injected the patients right carpal tunnel with 1cc bupivacaine and 1/2cc kenalog. The patient tolerated the injection well without any noted complication. Patient should call our office if redness develops, pain worsens or if they have any concerns. Follow up in [] or sooner if pain, swelling, numbness or associated symptoms, or concerns develop. All questions answered. Patient in agreement of plan. Orders Orders: Medications New: Coding Level of Care Code No Charge Diagnoses Carpal tunnel syndrome of right wrist G56.01 07/17/18 1216 <Electronically signed by Gregoria Gaviria DO> Date Gregoria Nieto Signature: Date (if applicable) CC: 12 LEAD ELECTROCARDIOGRAM Observed: 07/08/2018 Status: F Source: [place] 3:36 PM [facility] REPOSITORY [facility] Cardiovascular Services [address] [place] [address] [place] [address] 12 Lead EKG 07/03/18 1229 MR#: [id number] Acct: [id number] Name: ALLISON DOSHI Rep #: [id number] : 1975 43 From: Stevo Nino MD Attending Dr: Status: DEP ER Ordering Dr: Perfecto Alves MD Date: 07/03/18 Location: ED Sex: F C Admitted: Test Reason : CHEST PAIN Blood Pressure : / mmHG Vent. Rate : 085 BPM Atrial Rate : 085 BPM P-R Int : 122 ms QRS Dur : 076 ms QT Int : 372 ms P-R-T Axes : 056 060 062 degrees QTc Int : 442 ms Normal sinus rhythm Normal ECG Confirmed by AMBERLY COTA, STEVO ([id number]), technical writer and editor JESSICA SOTELO ([id number]) on 07/08/2018 3:35:52 PM Referred By: DC Confirmed By:STEVO NINO MD 07/08/18 1535 Date Stevo Nino MD CC: Perfecto Alves MD; Donald Henderson MD Signed DISCHARGE INSTRUCTION Observed: 07/03/2018 Status: F Source: [place] 4:14 PM [facility] REPOSITORY [facility] Medical Records Department [address] [place] [address] Discharge Instruction 07/03/18 1454 MR#: [id number] Acct: [id number] Name: ALLISON DOSHI Rep #: [id number] : 1975 43 From: Perfecto Alves MD PCP: Donald Henderson MD Status: DEP ER ED Disposition - Plan for ED Patient: Chief Complaint: Chest Pain Instructions: ED Chest Pain Atypical Unkn Cause Referrals: Donald Henderson MD [Primary Care Provider] - What to do if you have Problems For any increased pain, shortness of breath, bleeding, nausea or vomiting, chest pain, or any unexpected problems, contact your Primary Care Provider. Call [facility] ([phone]) or report to the closest Emergency Room. Call 911 if necessary. 07/03/18 1614 <Electronically signed by Perfecto Alves MD> Date Perfecto Alves MD Cosigner Signature (If Indicated): Date CC: Donald Henderson MD EMERGENCY DEPARTMENT Observed: 07/03/2018 Status: F Source: [place] SUMMARY 4:14 PM [facility] REPOSITORY [facility] Medical Records Department [address] [place] [address] Emergency Department Summary 07/03/18 1241 MR#: [id number] Acct: [id number] Name: ALLISON DOSHI Rep #: [id number] : 1975 43 From: Perfecto Alves MD PCP: Donald Henderson MD Status: DEP ER - ER Visit Summary Date of Service: 07/03/18 Chief Complaint: Pain History of Present Illness: The patient is a 43 F with chest pain. The symptoms started around 10 AM today. The pain is all over. Associated with shakiness and feeling like she is going to pass out. Feels hot flashes. No sweats. No vomiting. No shortness of breath. No history of heart disease, PE, aortic disease. No fevers or recent illness. Patient is a smoker. History of hypertension. Physical Examination: Afebrile and vital signs unremarkable except for hypertension. Alert and oriented. No acute distress. Heart regular rate and rhythm. Lungs clear. Abdomen soft and nontender. Skin, calves, pulses unremarkable. Test Results: EKG shows sinus rhythm at a rate of 85. No sign of infarction or ischemia. Labs and chest x-ray pending. Emergency Department Course and Treatment: Patient had aspirin prior to arrival. Declined pain medicine here. She was placed on a monitor. Will evaluate. Labs unremarkable except for glucose of 66. Patient will be eating after discharge. Troponin normal. Chest x-ray normal. Patient is low risk for ACS. PERC negative. Appropriate for outpatient follow-up. She is feeling better. Follow-up with primary care. Return for any new or worsening issues. Treatment Plan: As above Disposition: Discharge Impression: 1. Chest pain unclear etiology This note was generated with [employer] dictation software. It may contain incorrect words, spelling, and punctuation that were not noted in review of the chart prior to signing ED Disposition - Plan for ED Patient: Chief Complaint: Chest Pain Referrals: Donald Henderson MD [Primary Care Provider] - What to do if you have Problems For any increased pain, shortness of breath, bleeding, nausea or vomiting, chest pain, or any unexpected problems, contact your Primary Care Provider. Call [facility] ([phone]) or report to the closest Emergency Room. Call 911 if necessary. 07/03/18 1614 <Electronically signed by Perfecto Alves MD> Date Perfecto Alves MD Cosigner Signature (If Indicated): Date CC: Donald Henderson MD CBC W/DIFF, AUTOMATED Collected: 07/03/2018 Status: F Source: [place] 1:20 PM [facility] REPOSITORY TYPE CODE TESTS RESULT OUT OF RANGE REFERENCE UNITS LAB L100.1000 4.4-11.0 K/mm3 Normal WBC 6.3 LAB L100.1200 4.2-5.4 M/mm3 Normal RBC 4.44 LAB L100.1300 12.0-15.0 g/dl Normal HGB 14.5 LAB L100.1400 37-47 % Normal HCT 42.6 LAB L100.1500 81-99 fL Normal MCV 95.9 LAB L100.1600 27.0-32.0 pg High MCH 32.7 LAB L100.1700 32-36 g/gl Normal MCHC 34.0 LAB L100.1810 11.6-14.6 % Normal RDW CV 12.0 LAB L100.1820 35.1-43.9 fl Normal RDW SD 41.4 LAB L100.1900 150-450 K/mm3 Normal PLT 218 LAB L100.2000 6.2-12.0 fl Normal MPV 10.2 LAB L100.2100 47-70 % Normal NEUT% 54.8 LAB L100.2200 19-41 % Normal LY% 35.8 LAB L100.2300 0-10 % Normal MONO% 7.4 LAB L100.2400 0-5 % Normal EO% 1.3 LAB L100.2500 0-1 % Normal BASO% 0.5 LAB L100.2550 0.0-0.9 % Normal IM GRAN % 0.200 Result Comment: IG% - Immature Granulocytes (promyelocytes, myelocytes and metamyelocytes) > 1% indicates that a LEFT SHIFT is Present. LAB L100.2620 2.0-7.7 X10 3/uL Normal Absolute Neut 3.4 LAB L100.2720 0.83-4.51 X10 3/ul Normal Absolute Lymph 2.24 Performed By: #### L100.0100 #### [facility] [address] [place], [address] BASIC METABOLIC Collected: 07/03/2018 Status: F Source: [place] PROFILE ([facility]) 1:20 PM [facility] REPOSITORY TYPE CODE TESTS RESULT OUT OF RANGE REFERENCE UNITS LAB L501.0100 74-106 mg/dL Low GLU 66 Result Comment: Please note revised GLUCOSE reference range effective 2017. LAB L501.1000 7-18 mg/dL Low BUN 6 LAB L501.1100 0.55-1.02 mg/dL Normal CREAT,SERUM 0.71 Result Comment: The validity of the calculated GFR AND GFRAA in patients over 70 years has not been determined. Clinical correlation is essential. LAB L501.1110 >60 mL/min Normal EST GFR 96 Result Comment: Non- GFR Calc LAB L501.1115 >60 mL/min Normal EST GFR - AA 116 Result Comment: GFR Calc LAB L501.1255 ml/min Normal Estimated CRCL 77.89 LAB L501.1300 10-20 RATIO Low BUN/CRE 8.5 LAB L501.2200 8.5-10 mg/dL Normal .1 CA 9.2 LAB L501.5300 136-14 mmol/L Normal 5 NA 138 LAB L501.5600 3.5-5. mmol/L Normal 1 K 3.6 LAB L501.5900 98-107 mmol/L Normal CL 103 LAB L501.6100 21.0-3 mmol/L Normal 2.0 CO2 29.0 LAB L501.6200 5-15 Normal GAP 6 Performed By: #### L500.2500, L501.4010 #### [facility] [address] [facility] [place], [address] TROPONIN-I Collected: 07/03/2018 Status: F Source: [place] 1:20 PM [facility] REPOSITORY TYPE CODE TESTS RESULT OUT OF RANGE REFERENCE UNITS LAB L501.4010 <0.045 ng/mL Normal < 0.015 TROPONIN-I Result Comment: TROPONIN-I EXPECTED VALUES <0.045 Negative 0.045 - 0.590 Consistent with Cardiac Damage > OR = 0.600 Critical Value Not every elevated troponin is indicative of VA. These values should be used with clinical judgement in examining the patient's clinical picture for diagnosis. To establish a diagnosis of VA versus myocardial injury, there must be a demonstrated rise and/or fall in the troponin values, in addition to ischemic symptoms, EKG changes, new regional wall motion abnormality, and/or angiographical evidence. PLEASE NOTE: REFERENCE RANGES EDITED 17 Performed By: #### L500.2500, L501.4010 #### [facility] [address] [place], [address] CHEST 1 VIEW Observed: 07/03/2018 Status: F Source: [place] (PORTABLE) 12:41 PM [facility] REPOSITORY [facility] Imaging Services [address] [place] [address] Chest 1 View (Portable) MR#: [id number] Acct: [id number] Name: ALLISON DOSHI Rep #: [id number] : 1975 F 43 From: Andreas Velez MD PCP: Donald Henderson MD Status: REG ER Study: Chest 1 View (Portable) Date of Exam: 07/03/18 Exam# [id number] Ordering Dr: Perfecto Alves MD STUDY: X-RAY CHEST REASON FOR EXAM: Female, 43 years old. Chest pain. TECHNIQUE: Single AP portable upright view of the chest. COMPARISON: Portable AP upright chest x-ray October 31, 2017. FINDINGS: The lungs are clear and expanded. There is no demonstrated pleural abnormality. Normal size heart. Normal mediastinum and lang. Normal visualized pulmonary arteries. Normal visualized aortic arch and descending thoracic aorta. Normal visualized thoracic spine. Normal visualized ribs, clavicles, and shoulders. There is no demonstrated abnormality of the visualized soft tissue structures of the upper abdomen. RAD/Chest 1 View (Portable) IMPRESSION: Normal x-ray examination of the chest. Electronically Signed: Raymond Velez MD at 13:12 EST , Service support , CC: Perfecto Alves MD; Donald Henderson MD Programmer Operator Numerical Control: Signed [place] HEPATOBILIARY W EF Observed: 03/20/2018 Status: F Source: [place] AND/OR RX 9:45 AM [facility] REPOSITORY * * *Final Report* * * DATE OF EXAM: Mar 20 2018 9:45AM [facility] 0021 - [place] HEPATOBILIARY W EF AND/OR RX / PROCEDURE REASON: Right upper quadrant pain * * * * Physician Interpretation * * * * HEPATOBILIARY SCAN WITH POST-CCK GALLBLADDER EJECTION FRACTION: CLINICAL HISTORY: Right upper quadrant pain. TECHNIQUE: 5.3 mCi Tc-99m Choletec IV, followed by 60 minutes of abdominal imaging. 8 oz Ensure Plus PO, followed by additional 45 minutes of imaging. FINDINGS: There is prompt and homogeneous uptake by the liver, which appears grossly normal in size and shape. Gallbladder activity is visualized by 7 minutes, indicating cystic duct patency. Proximal small bowel activity is noted by 12 minutes, indicating common bile duct patency. After fatty meal ingestion, there is normal emptying from the gallbladder with a calculated gallbladder ejection fraction of 39% (normal > 35%). IMPRESSION: 1. PATENT CYSTIC AND COMMON BILE DUCTS. NO EVIDENCE OF ACUTE CHOLECYSTITIS. 2. NORMAL GALLBLADDER EJECTION FRACTION. Programmer Operator Numerical Control: AN Transcribe Date/Time: Mar 20 2018 12:33P Dictated by : ALEX ALVARADO MD This examination was interpreted and the report reviewed and electronically signed by: ALEX ALVARADO MD on Mar 20 2018 12:37PM EST [id number] Observed: 03/20/2018 Status: COMPLETED Source: [place] 7:54 AM [facility] REPOSITORY [facility] ID: [id number] Author: Alisa Ramirez Service: (none) Author Type: (none) Type: Progress Notes Filed: 03/20/2018 9:08 AM Note Text: RADIOLOGY SERVICE PROGRESS NOTE SERVICE DATE: 03/20/2018 SERVICE TIME: 7:40 AM PATIENT IDENTITY VERIFICATION COMPLETED USING TWO (2) METHODS: Patient confirmed name and Date of verbally. PATIENT GENDER DATA: .female : No ALLERGIES: Reviewed and unchanged MEDICATIONS REVIEWED: No PATIENT RELEVANT IMPLANT DATA REVIEWED: Not Applicable CREATININE: Creatinine Date Value Ref Range Status 12/18/2017 0.99 (H) 0.58 - 0.96 mg/dL Final 11/25/2017 1.05 (H) 0.58 - 0.96 mg/dL Final 09/25/2017 0.77 0.58 - 0.96 mg/dL Final eGFR-All Other Races Date Value Ref Range Status 12/18/2017 >60 . Final Comment: eGFR (Estimated GFR) Units of measure: mL/min/1.73 meters squared eGFR is derived from the reexpressed MDRD Study equation using the following parameters: serum creatinine, age, gender and race. The creatinine assay has been calibrated to be traceable to IDMS. An eGFR <60 mL/min/1.73m2 for >3 months is consistent with chronic kidney disease. Refer to KDOQI guidelines for clinical interpretation. In patients with unstable renal function, e.g. those with acute kidney injury, the eGFR may not accurately reflect actual GFR. eGFR- Date Value Ref Range Status 12/18/2017 >60 Final P.O.C.T. RESULTS: N/A March 20, [address] PERFORMED: No IV SITE: Ambulatory: A peripheral IV was started in the Right antecubital site with a Angio cath: 24 gauge. POST EXAM PIV STATUS: Discontinued PROCEDURE TYPE: NM INJECT: Hepatobiliary with Gallbladder EF. 5.3 mCi Tc99m CHOLETEC. 8oz Ensure Plus given PO at 09:00 for EF. ADMINISTRATION TIME: 07:40 PATIENT DISCHARGED TO: Ambulatory patient, left [place] department area. A Diagnostic radioactive procedure has taken place, with no further precautions necessary other than routine body substance precautions. More information regarding radiation safety can be found using this link: [email or web address] SIGNATURE: Alisa Ramirez PATIENT NAME: Larry Doshi DATE: March 20, 2018 TIME: 7:54 AM PAGER/CONTACT #: PROGRESS Observed: 02/26/2018 Status: COMPLETED Source: [place] 10:45 AM [facility] REPOSITORY O ID: [id number] Author: Priyanka Juarez Service: (none) Author Type: Science Job Titles Type: Progress Notes Filed: 02/26/2018 10:45 AM Note Text: Radiology Service Progress Note PATIENT NAME: Larry Doshi DATE OF SERVICE: February 26, 2018 TIME: 10:45 AM PATIENT IDENTITY VERIFICATION COMPLETED USING TWO (2) METHODS: Patient confirmed name verbally and Date of . PATIENT GENDER DATA: Female. status: : No status: N/A PATIENT RELEVANT IMPLANT DATA REVIEWED: Not Applicable RADIOLOGY DEPARTMENT: Ultrasound ABD COMPLETE PERIPHERAL IV DATA: Not applicable SIGNED BY: PRIYANKA JUAREZ RDMS February 26, 2018 10:45 AM US ABDOMEN COMPLETE Observed: 02/26/2018 Status: F Source: [place] 10:44 AM [facility] REPOSITORY * * *Final Report* * * DATE OF EXAM: Feb 26 2018 10:44AM [facility] 1040 - US ABDOMEN COMPLETE / PROCEDURE REASON: multiple diagnoses * * * * Physician Interpretation * * * * EXAMINATION: COMPLETE ABDOMINAL ULTRASOUND CLINICAL HISTORY: Bilateral upper abdominal pain for 6 months TECHNIQUE: Sonography of the abdomen was performed. Images were obtained and stored in a permanent archive. MQ: UAbC_1 COMPARISON: None RESULT: Pancreas: Normal sonographic appearance. Portions obscured: Tail Lesions: None Liver: Echotexture: Normal, homogeneous. Echogenicity: Normal Surface contour: Smooth Lesions: None. Biliary: No intrahepatic biliary duct dilation. CBD: cm at the hilum. Gallbladder: Normal caliber -Contents: No cholelithiasis. Small amount of sludge is present. -Wall: Normal -Other: No pericholecystic fluid. Patient stated sharp pain was present with the probe placed adjacent to the gallbladder. Spleen: Craniocaudal length: 9 cm, normal size Lesions: None Right Kidney: -Renal length: 9.2 cm -Parenchyma: Normal parenchymal echogenicity. Normal parenchymal thickness. -Collecting system: No hydronephrosis. -Calculus: No echogenic, shadowing calculus. -Lesion: None. Left Kidney: -Renal length: 10.4 cm -Parenchyma: Normal parenchymal echogenicity. Normal parenchymal thickness. -Collecting system: No hydronephrosis. -Calculus: No echogenic, shadowing calculus. -Lesion: None. Bladder: Normal. IVC: Imaged segment is patent. Abdominal Aorta: Imaged segment is patent. Proximal aorta measures 1.9 x 2.3 cm Mid aorta measures 1.8 x 1.6 cm Distal aorta measures 1.8 x 1.6 cm Ascites: None. IMPRESSION: POSITIVE SONOGRAPHIC DAMIAN SIGN BUT NO GALLSTONES, WALL THICKENING, PERICHOLECYSTIC FLUID, OR OTHER STRUCTURAL ABNORMALITIES. THIS FINDING IS THEREFORE OF DOUBTFUL SIGNIFICANCE OTHERWISE NORMAL ABDOMINAL ULTRASOUND Programmer Operator Numerical Control: [facility]ITALLeatha Transcribe Date/Time: Feb 26 2018 3:17P Dictated by : JON MACIAS MD This examination was interpreted and the report reviewed and electronically signed by: JON MACIAS MD on Feb 26 2018 3:20PM EST [id number] PROGRESS Observed: 02/23/2018 Status: COMPLETED Source: [place] 10:35 PM [facility] REPOSITORY HNO ID: [id number] Author: Donald Henderson Service: (none) Author Type: Physician Type: Progress Notes Filed: 02/23/2018 11:02 PM Note Text: This note was created using [employer]ial Fusion [employer]. Subjective Larry Doshi is a 43 year old female here for follow up. Her hypertension was controlled. She had an upper and lower endoscopy due to abdominal pain, nausea, and change in bowel habits. Work up was essentially negative. She was doing better. She had cervical spine injection recently. She still had atypical chest pains, with negative work up in the past. She was still smoking. ACTIVE PROBLEM LIST Lumbago Gerd (Gastroesophageal Reflux Disease) Hidradenitis Suppurativa Tobacco Use Disorder Neck Pain, Chronic Epigastric Pain Hematemesis Essential Hypertension Cervical Spine Disease Current Outpatient Prescriptions: bisoprolol-hydrochlorothiazide (ZIAC) 2.5-6.25 mg per tablet Take 1 tablet by mouth once daily. sucralfate (CARAFATE) 1 gram tablet Take 1 tablet by mouth before meals and at bedtime. aspirin/acetaminophen/caffeine (EXCEDRIN EXTRA STRENGTH ORAL) Take by mouth. ondansetron orally disintegrating (ZOFRAN ODT) 4 mg disintegrating tablet Take 1 tablet by mouth every 6 hours as needed for Nausea/Vomiting. pantoprazole DR (PROTONIX) 40 mg tablet Take 1 tablet by mouth once daily. Take on empty stomach, 1/2 hr before meal. gabapentin (NEURONTIN) 600 mg tablet Take 600 mg by mouth twice daily. Per Dr. Salinas albuterol HFA (VENTOLIN HFA) 90 mcg/actuation inhaler Inhale 2 Puffs as instructed every 4 hours as needed for Wheezing/Shortness of Breath. No current facility-administered medications for this visit. Review of Systems Constitutional: Negative. Respiratory: Negative. Cardiovascular: Positive for chest pain. Negative for palpitations and leg swelling. See HPI. Gastrointestinal: Negative. Musculoskeletal: Positive for back pain and neck pain. Objective BP 122/74 (BP Site: Left Arm, BP Position: Sitting, BP Cuff Size: Regular Adult) Pulse 84 Temp 36.9 ?C (98.5 ?F) (Left Tympanic) Resp 18 Wt 69.4 kg (153 lb) BMI 28.44 kg/m? Physical Exam Constitutional: No distress. Cardiovascular: S1 normal and S2 normal. Exam reveals no gallop. No murmur heard. Pulmonary/Chest: She has no wheezes. She has no rales. Abdominal: Soft. There is no tenderness. Musculoskeletal: She exhibits no edema. Assessment and Plan 1. Gastroesophageal reflux disease, esophagitis presence not specified - ICD9: 530.81, ICD10: K21.9 (primary diagnosis) - Continue medications. 2. Essential hypertension - ICD9: 401.9, ICD10: I10 - good control - Continue current medication(s) - Patient counselled on smoking cessation. - BISOPROLOL 2.5 MG-HYDROCHLOROTHIAZIDE 6.25 MG TABLET 3. 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 Donald Henderson MD CNOV Observed: 02/23/2018 Status: COMPLETED Source: [place] 4:40 PM [facility] REPOSITORY Office Visit (INTMWS) LARRY DOSHI ([id number]) 1975 [facility] Date Time Provider Department 02/23/18 4:40 PM DONALD HENDERSON INTMWS During your visit today, we recorded the following information about you: Temperature Pulse Respiration Blood pressure 98.5 degrees 84/minute 18/minute 122/74 Weight 69.4 kg Donald Henderson MD 02/23/2018 5:17 PM Signed Please do MAMMOGRAM due on 2016. Have Dr. Randolph send us a copy. Donald Henderson MD 02/23/2018 11:02 PM Signed This note was created using [employer]. Subjective Larry Hernandez Tico is a 43 year old female here for follow up. Her hypertension was controlled. She had an upper and lower endoscopy due to abdominal pain, nausea, and change in bowel habits. Work up was essentially negative. She was doing better. She had cervical spine injection recently. She still had atypical chest pains, with negative work up in the past. She was still smoking. ACTIVE PROBLEM LIST Lumbago Gerd (Gastroesophageal Reflux Disease) Hidradenitis Suppurativa Tobacco Use Disorder Neck Pain, Chronic Epigastric Pain Hematemesis Essential Hypertension Cervical Spine Disease Current Outpatient Prescriptions: bisoprolol-hydrochlorothiazide (ZIAC) 2.5-6.25 mg per tablet Take 1 tablet by mouth once daily. sucralfate (CARAFATE) 1 gram tablet Take 1 tablet by mouth before meals and at bedtime. aspirin/acetaminophen/caffeine (EXCEDRIN EXTRA STRENGTH ORAL) Take by mouth. ondansetron orally disintegrating (ZOFRAN ODT) 4 mg disintegrating tablet Take 1 tablet by mouth every 6 hours as needed for Nausea/Vomiting. pantoprazole DR (PROTONIX) 40 mg tablet Take 1 tablet by mouth once daily. Take on empty stomach, 1/2 hr before meal. gabapentin (NEURONTIN) 600 mg tablet Take 600 mg by mouth twice daily. Per Dr. Salinas albuterol HFA (VENTOLIN HFA) 90 mcg/actuation inhaler Inhale 2 Puffs as instructed every 4 hours as needed for Wheezing/Shortness of Breath. No current facility-administered medications for this visit. Review of Systems Constitutional: Negative. Respiratory: Negative. Cardiovascular: Positive for chest pain. Negative for palpitations and leg swelling. See HPI. Gastrointestinal: Negative. Musculoskeletal: Positive for back pain and neck pain. Objective BP 122/74 (BP Site: Left Arm, BP Position: Sitting, BP Cuff Size: Regular Adult) Pulse 84 Temp 36.9 ?C (98.5 ?F) (Left Tympanic) Resp 18 Wt 69.4 kg (153 lb) BMI 28.44 kg/m? Physical Exam Constitutional: No distress. Cardiovascular: S1 normal and S2 normal. Exam reveals no gallop. No murmur heard. Pulmonary/Chest: She has no wheezes. She has no rales. Abdominal: Soft. There is no tenderness. Musculoskeletal: She exhibits no edema. Assessment and Plan 1. Gastroesophageal reflux disease, esophagitis presence not specified - ICD9: 530.81, ICD10: K21.9 (primary diagnosis) - Continue medications. 2. Essential hypertension - ICD9: 401.9, ICD10: I10 - good control - Continue current medication(s) - Patient counselled on smoking cessation. - BISOPROLOL 2.5 MG-HYDROCHLOROTHIAZIDE 6.25 MG TABLET 3. 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 Donald Henderson MD Referring Provider: DONALD HENDERSON [[id number]] Allergies As of Date: 02/23/2018 Noted Allergy Reaction BACTRIM (SULFAMETHOXAZOLE) 12/13/2011 2 - Rash WELLBUTRIN (BUPROPION HCL) 01/09/2018 14 - Other: See Comments Comments: Chest pain, hot, felt like I was gonna pass out Date Reviewed: 02/23/2018 Reviewed by: Sherita Clarke LPN - Fully Assessed Reason for Visit: 4 month follow-up [Other] Primary Visit Diagnosis:Gastroesophageal reflux disease, esophagitis presence not specified [K21.9] Other Visit Diagnoses:Essential hypertension [I10] Screening for breast cancer [Z12.31] Order(s):bisoprolol-hydrochlorothiazide (ZIAC) 2.5-6.25 mg per tabletTake 1 tablet by mouth once daily.Disp: 30 tabletRfl: 11 Prescriptions as of 02/23/2018 Sig: BISOPROLOL 2.5 MG-HYDROCHLORO* Take 1 tablet by mouth once d* SUCRALFATE 1 GRAM TABLET Take 1 tablet by mouth before* EXCEDRIN EXTRA STRENGTH ORAL Take by mouth. ONDANSETRON 4 MG DISINTEGRATI* Take 1 tablet by mouth every * PANTOPRAZOLE 40 MG TABLET,DEL* Take 1 tablet by mouth once d* GABAPENTIN 600 MG TABLET Take 600 mg by mouth twice da* ALBUTEROL SULFATE HFA 90 MCG/* Inhale 2 Puffs as instructed * Problem List As Of Date 02/23/2018 Noted Resolved Lumbago [M54.5] INVALID FOR* GERD (gastroesophageal reflux disease) [K21.9] INVALID FOR* Hidradenitis suppurativa [L73.2] INVALID FOR* Spondylolisthesis [M43.10] INVALID FOR*09/23/2017 Tobacco abuse [Z72.0] INVALID FOR*09/23/2017 PONV (postoperative nausea and vomiting) [R11.2*INVALID FOR*08/21/2016 Esophageal reflux [K21.9] INVALID FOR*01/05/2015 Neck pain [M54.2] INVALID FOR*09/23/2017 Closed fracture of cervical vertebra (HCC) [S12*INVALID FOR*09/23/2017 Tobacco use disorder [F17.200] INVALID FOR* Neck pain, chronic [M54.2, G89.29] INVALID FOR* Epigastric pain [R10.13] INVALID FOR* More... Hematemesis [K92.0] INVALID FOR* More... Altered bowel habits [R19.4] INVALID FOR*02/23/2018 More... Essential hypertension [I10] INVALID FOR* Cervical spine disease [M48.9] INVALID FOR* Other instructions from your clinician: Please do MAMMOGRAM due on 2016. Have Dr. Randolph send us a copy. Prescriptions ordered this encounter Disp Refills Start End BISOPROLOL 2.5 MG-HYDROCHLOROTHIAZID* 30 t* 11 02/23/2018 Route: ORAL Sig: Take 1 tablet by mouth once daily. Medications Discontinued During This Encounter ketotifen fumarate (ZADITOR) 0.025 %* 1 Todd* 1 10/05/2017 02/23/2018 Route: BOTH EYES Sig: Use 1 Drop in both eyes twice daily. Patient not taking: Reported on 02/23/2018 Disc: Reason for discontinue is not on file. albuterol (PROVENTIL) 5 mg/mL nebu 1 mL 0 11/11/2017 02/23/2018 Class: In Office Route: INHALATION Sig: Inhale 0.5 mL as instructed one time only for 1 dose. 1 DOSE NOW - BACK OFFICE. PLACE 0.5 ML PER DROPPER AND 2.5 ML OF NORMAL SALINE INTO RESERVOIR. Disc: Reason for discontinue is not on file. bisoprolol-hydrochlorothiazide (ZIAC* 30 t* 5 10/23/2017 02/23/2018 Route: ORAL Sig: Take 1 tablet by mouth once daily. Disc: Reason for discontinue is not on file. Disposition: Return in about 6 months (around 08/26/2018). Follow-up and Disposition History Recorded Encounter Status:Closed by DONALD HENDERSON MD on 02/23/18 LIPASE Collected: 02/17/2018 Status: F Source: [place] 4:53 PM [facility] REPOSITORY TYPE CODE TESTS RESULT OUT OF REFERENCE UNITS RANGE LAB LIPA 16-61 U/L Lipase 51 Performed By: #### LIPA #### [facility] [address] [place], [place] [address] PROGRESS Observed: 02/02/2018 Status: COMPLETED Source: [place] 7:45 AM [facility] REPOSIT[facility] HNO ID: [id number] Author: Charlene Llanos Service: (none) Author Type: Nurse Practitioner Type: Progress Notes Filed: 02/02/2018 8:19 AM Note Text: Larry Doshi a 43 year old female who is returning for follow up regarding nausea, left sided abdominal pain and altered bowel haibts. I saw the patient in consultation on 12/23/17. That note has been reviewed. The patient was seen by Dr. Jim for upper endoscopy and colonoscopy 01/19/18. The procedure report has been reviewed and findings as follows: EGD: Impression: -normal examined jejunum. bx -normal examined duodenum -normal stomach -non-severe reflux esophagitis. bx -normal middle third of esophagus. bx Colonoscopy: Impression: -the examined portion of the ileum was normal. bx -the entire examined colon is normal. bx -the distal rectum and anal verge are normal on retroflexion view. FINAL DIAGNOSIS 1. Jejunum, biopsy (A) - Small-bowel mucosa with no diagnostic abnormalities. ? 2. Stomach, antrum, biopsy (B) - Antral-type gastric mucosa with no diagnostic abnormalities. - No Helicobacter organisms identified. ? ? 3. Gastroesophageal junction, biopsy (C) - Inflamed cardia- type gastric mucosa, negative for intestinal metaplasia. - Squamous mucosa with mild reactive epithelial changes. ? ? 4. Esophagus, biopsy (D) - Squamous mucosa with no diagnostic abnormalities. - No prominence in eosinophils or lymphocytes and no intestinal metaplasia. ? 5. Terminal ileum, biopsy (G) - Small-bowel mucosa with no diagnostic abnormalities. ? ? 6. Colon, random, biopsy (F) - Fragments of colonic mucosa with no diagnostic abnormality. I have reviewed the procedure and pathology reports, as well as the images, with the patient. Presenting complaint: Taking pantoprazole daily. Trying to take the sucralfate more frequent. Seasoning is problematic. Continues with epigastric pain. Continues to drink alcohol and take Excedrin. I have recommended that she decrease both, ultimately quitting both. REVIEW OF SYSTEMS: GENERAL: No weight loss, malaise or fevers GI: The patient states that her appetite has been adequate. She does get hungry. There has been some nausea, no vomiting. She denies dysphagia and denies odynophagia. There has partially been indigestion without heartburn. There has partially been regurgitation. Bowel habits have been regular. There has partially been diarrhea. There has rarely been constipation. The patient denies rectal bleeding. There has not been melena. No new or worsening abdominal pain. All other reviewed and negative other than HPI. PAST MEDICAL HISTORY Diagnosis Date - Cervical intraepithelial neoplasia 2005 - Closed C7 fracture (HCC) 06/16/2016 - Closed fracture of cervical vertebra (HCC) 09/25/2016 - Essential hypertension 01/09/2018 - Gastritis - GERD (gastroesophageal reflux disease) 12/11/2011 - Hidradenitis suppurativa 12/11/2011 - Lumbago 12/11/2011 - Spondylolisthesis 01/01/2012 - Tobacco abuse - Traumatic compression fracture of T2 thoracic vertebra (HCC) 06/16/2016 PAST SURGICAL HISTORY Procedure Laterality Date - CERVIX UTERI CONIZA LP ELCTRO EXCI 2005 LEEP-Cervix - COLONOSCOPY 01/19/2018 - EGD 01/19/2018 - EGD W/O OR W/BRUSH/WASH 2009 EGD, Dr. Richardson - EGD W/O OR W/BRUSH/WASH 01/05/15 EGD - LIGATE FALLOPIAN TUBE 2006 Tubal ligation - VAGINAL HYSTERECTOMY Hysterectomy, vaginal FAMILY HISTORY Problem Relation Age of Onset - Diabetes Mother - Heart Mother arryhtmia - Cervical Cancer Mother - Diabetes Father [place] 2012, - Coronary Artery Disease Father - COPD Father - Hypertension Father - COPD Sister - Hypertension Sister - Hypertension Sister - None Sister Current Outpatient Prescriptions: sucralfate (CARAFATE) 1 gram tablet Take 1 tablet by mouth before meals and at bedtime. Disp: 120 tablet Rfl: 3 aspirin/acetaminophen/caffeine (EXCEDRIN EXTRA STRENGTH ORAL) Take by mouth. Disp: Rfl: ondansetron orally disintegrating (ZOFRAN ODT) 4 mg disintegrating tablet Take 1 tablet by mouth every 6 hours as needed for Nausea/Vomiting. Disp: 12 tablet Rfl: 0 albuterol (PROVENTIL) 5 mg/mL nebu Inhale 0.5 mL as instructed one time only for 1 dose. 1 DOSE NOW - BACK OFFICE. PLACE 0.5 ML PER DROPPER AND 2.5 ML OF NORMAL SALINE INTO RESERVOIR. Disp: 1 mL Rfl: 0 bisoprolol-hydrochlorothiazide (ZIAC) 2.5-6.25 mg per tablet Take 1 tablet by mouth once daily. Disp: 30 tablet Rfl: 5 ketotifen fumarate (ZADITOR) 0.025 % (0.035 %) ophthalmic solution Use 1 Drop in both eyes twice daily. Disp: 1 Bottle Rfl: [address] (PROTONIX) 40 mg tablet Take 1 tablet by mouth once daily. Take on empty stomach, 1/2 hr before meal. Disp: 90 tablet Rfl: 3 gabapentin (NEURONTIN) 600 mg tablet Take 600 mg by mouth twice daily. Per Dr. Salinas Disp: Rfl: albuterol HFA (VENTOLIN HFA) 90 mcg/actuation inhaler Inhale 2 Puffs as instructed every 4 hours as needed for Wheezing/Shortness of Breath. Disp: 1 Inhaler Rfl: 0 No current facility-administered medications for this visit. SOCIAL HISTORY: Reviewed. PHYSICAL EXAMINATION: Blood pressure 121/82, pulse 91. General Appearance: Well appearing, alert, in no acute distress, well-hydrated, well nourished. Skin: Skin color, texture, turgor normal, no suspicious rashes or lesions. Head: Normocephalic, no masses, lesions, tenderness or abnormalities. Eyes: Anicteric sclera. Lungs: Lungs clear to auscultation. No wheezing, rhonchi, rales. Heart: RRR without murmur. Abdomen: Normal abdominal exam, Abdomen soft, vague tenderness in epigastric region. Bowel sounds normal. No masses, organomegaly. Extremities: No deformities, edema, skin discoloration, clubbing or cyanosis. Impression: GERD with esophagitis 2)functional bowel disorder 3)aspirin and alcohol overuse Plan: Minimal alcohol and Excedrin. US of the upper abdomen. Lipase. Continue PPI and sucralfate. Further plan based on the results. Patient agrees with this plan. I have personally interviewed and examined this patient. I have reviewed the information that the MA entered for this encounter. I spent 30 minutes in the visit, with greater than 50% of the total crcp-dx-dowc time of the visit in counseling and coordination of care. Charlene Llanos RN MANAGER BEHAVIORAL.SHAHNAZ NICOLE Observed: 02/02/2018 Status: COMPLETED Source: [place] 7:40 AM [facility] REPOSITORY Office Visit (GASTWC) LARRY DOSHI ([id number]) 1975 F [place] Date Time Provider Department 02/02/18 7:40 AM CHARLENE LLANOS ([facility]) [facility] During your visit today, we recorded the following information about you: Pulse Blood pressure 91/minute 121/82 Charlene Llanos RN MANAGER BEHAVIORAL.COMPLETIONS MANAGER 02/02/2018 8:19 AM Signed Larry Doshi a 43 year old female who is returning for follow up regarding nausea, left sided abdominal pain and altered bowel haibts. I saw the patient in consultation on 12/23/17. That note has been reviewed. The patient was seen by Dr. Jim for upper endoscopy and colonoscopy 01/19/18. The procedure report has been reviewed and findings as follows: EGD: Impression: -normal examined jejunum. bx -normal examined duodenum -normal stomach -non-severe reflux esophagitis. bx -normal middle third of esophagus. bx Colonoscopy: Impression: -the examined portion of the ileum was normal. bx -the entire examined colon is normal. bx -the distal rectum and anal verge are normal on retroflexion view. FINAL DIAGNOSIS 1. Jejunum, biopsy (A) - Small-bowel mucosa with no diagnostic abnormalities. ? 2. Stomach, antrum, biopsy (B) - Antral-type gastric mucosa with no diagnostic abnormalities. - No Helicobacter organisms identified. ? ? 3. Gastroesophageal junction, biopsy (C) - Inflamed cardia- type gastric mucosa, negative for intestinal metaplasia. - Squamous mucosa with mild reactive epithelial changes. ? ? 4. Esophagus, biopsy (D) - Squamous mucosa with no diagnostic abnormalities. - No prominence in eosinophils or lymphocytes and no intestinal metaplasia. ? 5. Terminal ileum, biopsy (G) - Small-bowel mucosa with no diagnostic abnormalities. ? ? 6. Colon, random, biopsy (F) - Fragments of colonic mucosa with no diagnostic abnormality. I have reviewed the procedure and pathology reports, as well as the images, with the patient. Presenting complaint: Taking pantoprazole daily. Trying to take the sucralfate more frequent. Seasoning is problematic. Continues with epigastric pain. Continues to drink alcohol and take Excedrin. I have recommended that she decrease both, ultimately quitting both. REVIEW OF SYSTEMS: GENERAL: No weight loss, malaise or fevers GI: The patient states that her appetite has been adequate. She does get hungry. There has been some nausea, no vomiting. She denies dysphagia and denies odynophagia. There has partially been indigestion without heartburn. There has partially been regurgitation. Bowel habits have been regular. There has partially been diarrhea. There has rarely been constipation. The patient denies rectal bleeding. There has not been melena. No new or worsening abdominal pain. All other reviewed and negative other than HPI. PAST MEDICAL HISTORY Diagnosis Date - Cervical intraepithelial neoplasia 2006 - Closed C7 fracture ([facility]) 06/16/2016 - Closed fracture of cervical vertebra ([facility]) 09/25/2016 - Essential hypertension 01/09/2018 - Gastritis - GERD (gastroesophageal reflux disease) 12/11/2011 - Hidradenitis suppurativa 12/11/2011 - Lumbago 12/11/2011 - Spondylolisthesis 01/01/2012 - Tobacco abuse - Traumatic compression fracture of T2 thoracic vertebra ([facility]) 06/16/2016 PAST SURGICAL HISTORY Procedure Laterality Date - CERVIX UTERI CONIZA LP ELCTRO EXCI 2006 LEEP-Cervix - COLONOSCOPY 01/19/2018 - EGD 01/19/2018 - EGD W/O OR W/BRUSH/WASH 2009 EGD, Dr. Richardson - EGD W/O OR W/BRUSH/WASH 01/05/15 EGD - LIGATE FALLOPIAN TUBE 2006 Tubal ligation - VAGINAL HYSTERECTOMY Hysterectomy, vaginal FAMILY HISTORY Problem Relation Age of Onset - Diabetes Mother - Heart Mother arryhtmia - Cervical Cancer Mother - Diabetes Father [place] 2012, - Coronary Artery Disease Father - COPD Father - Hypertension Father - COPD Sister - Hypertension Sister - Hypertension Sister - None Sister Current Outpatient Prescriptions: sucralfate (CARAFATE) 1 gram tablet Take 1 tablet by mouth before meals and at bedtime. Disp: 120 tablet Rfl: 3 aspirin/acetaminophen/caffeine (EXCEDRIN EXTRA STRENGTH ORAL) Take by mouth. Disp: Rfl: ondansetron orally disintegrating (ZOFRAN ODT) 4 mg disintegrating tablet Take 1 tablet by mouth every 6 hours as needed for Nausea/Vomiting. Disp: 12 tablet Rfl: 0 albuterol (PROVENTIL) 5 mg/mL nebu Inhale 0.5 mL as instructed one time only for 1 dose. 1 DOSE NOW - BACK OFFICE. PLACE 0.5 ML PER DROPPER AND 2.5 ML OF NORMAL SALINE INTO RESERVOIR. Disp: 1 mL Rfl: 0 bisoprolol-hydrochlorothiazide (ZIAC) 2.5-6.25 mg per tablet Take 1 tablet by mouth once daily. Disp: 30 tablet Rfl: 5 ketotifen fumarate (ZADITOR) 0.025 % (0.035 %) ophthalmic solution Use 1 Drop in both eyes twice daily. Disp: 1 Bottle Rfl: [address] (PROTONIX) 40 mg tablet Take 1 tablet by mouth once daily. Take on empty stomach, 1/2 hr before meal. Disp: 90 tablet Rfl: 3 gabapentin (NEURONTIN) 600 mg tablet Take 600 mg by mouth twice daily. Per Dr. Salinas Disp: Rfl: albuterol HFA (VENTOLIN HFA) 90 mcg/actuation inhaler Inhale 2 Puffs as instructed every 4 hours as needed for Wheezing/Shortness of Breath. Disp: 1 Inhaler Rfl: 0 No current facility-administered medications for this visit. SOCIAL HISTORY: Reviewed. PHYSICAL EXAMINATION: Blood pressure 121/82, pulse 91. General Appearance: Well appearing, alert, in no acute distress, well-hydrated, well nourished. Skin: Skin color, texture, turgor normal, no suspicious rashes or lesions. Head: Normocephalic, no masses, lesions, tenderness or abnormalities. Eyes: Anicteric sclera. Lungs: Lungs clear to auscultation. No wheezing, rhonchi, rales. Heart: RRR without murmur. Abdomen: Normal abdominal exam, Abdomen soft, vague tenderness in epigastric region. Bowel sounds normal. No masses, organomegaly. Extremities: No deformities, edema, skin discoloration, clubbing or cyanosis. Impression: GERD with esophagitis 2)functional bowel disorder 3)aspirin and alcohol overuse Plan: Minimal alcohol and Excedrin. US of the upper abdomen. Lipase. Continue PPI and sucralfate. Further plan based on the results. Patient agrees with this plan. I have personally interviewed and examined this patient. I have reviewed the information that the MA entered for this encounter. I spent 30 minutes in the visit, with greater than 50% of the total qfbz-kf-pclx time of the visit in counseling and coordination of care. Charlene Llanos RN MANAGER BEHAVIORAL.SHAHNAZ Llanos RN APRN.SHAHNAZ 02/02/2018 8:07 AM Addendum Continue pantoprazole daily. Take sucralfate 4 times a day, every day. Minimal alcohol and Excedrin. Please follow the instructions for the test that looks at your liver, stomach, pancreas. (ultrasound) It will take a day or two after the test for us to get the results. Call [phone], and ask to speak to a nurse in GI, if you have any questions or concerns in the mean time. Referring Provider: DONALD HENDERSON [[id number]] Allergies As of Date: 02/02/2018 Noted Allergy Reaction BACTRIM (SULFAMETHOXAZOLE) 12/13/2011 2 - Rash WELLBUTRIN (BUPROPION HCL) 01/09/2018 14 - Other: See Comments Comments: Chest pain, hot, felt like I was gonna pass out Date Reviewed: 02/02/2018 Reviewed by: Melissa Henning Ma - Fully Assessed Reason for Visit: Surgical Followup [104] Primary Visit Diagnosis:Bilateral upper abdominal pain [R10.11, R10.12] Other Visit Diagnosis:Nausea [R11.0] Order(s):LIPASE BLD [SQLIPA] Order #: [id number] FUTURE US ABDOMEN COMPLETE [[id number]] Order #: [id number] FUTURE Prescriptions as of 02/02/2018 Sig: SUCRALFATE 1 GRAM TABLET Take 1 tablet by mouth before* EXCEDRIN EXTRA STRENGTH ORAL Take by mouth. ONDANSETRON 4 MG DISINTEGRATI* Take 1 tablet by mouth every * ALBUTEROL SULFATE CONCENTRATE* Inhale 0.5 mL as instructed o* BISOPROLOL 2.5 MG-HYDROCHLORO* Take 1 tablet by mouth once d* KETOTIFEN 0.025 % (0.035 %) E* Use 1 Drop in both eyes twice* PANTOPRAZOLE 40 MG TABLET,DEL* Take 1 tablet by mouth once d* GABAPENTIN 600 MG TABLET Take 600 mg by mouth twice da* ALBUTEROL SULFATE HFA 90 MCG/* Inhale 2 Puffs as instructed * Problem List As Of Date 02/02/2018 Noted Resolved Lumbago [M54.5] INVALID FOR* GERD (gastroesophageal reflux disease) [K21.9] INVALID FOR* Hidradenitis suppurativa [L73.2] INVALID FOR* Spondylolisthesis [M43.10] INVALID FOR*09/23/2017 Tobacco abuse [Z72.0] INVALID FOR*09/23/2017 PONV (postoperative nausea and vomiting) [R11.2*INVALID FOR*08/21/2016 Esophageal reflux [K21.9] INVALID FOR*01/05/2015 Neck pain [M54.2] INVALID FOR*09/23/2017 Closed fracture of cervical vertebra (HCC) [S12*INVALID FOR*09/23/2017 Tobacco use disorder [F17.200] INVALID FOR* Neck pain, chronic [M54.2, G89.29] INVALID FOR* Epigastric pain [R10.13] INVALID FOR* More... Hematemesis [K92.0] INVALID FOR* More... Altered bowel habits [R19.4] INVALID FOR* More... Essential hypertension [I10] INVALID FOR* Cervical spine disease [M48.9] INVALID FOR* Other instructions from your clinician: Continue pantoprazole daily. Take sucralfate 4 times a day, every day. Minimal alcohol and Excedrin. Please follow the instructions for the test that looks at your liver, stomach, pancreas. (ultrasound) It will take a day or two after the test for us to get the results. Call [phone], and ask to speak to a nurse in GI, if you have any questions or concerns in the mean time. Encounter Status:Closed by CHARLENE LLANOS CNP on 02/02/18 CNCO Observed: 02/02/2018 Status: COMPLETED Source: [place] 12:00 AM [facility] REPOSITORY Letter Text Department of Gastroenterology [address] [place], [place] [address] 02/02/2018 QianaJanis Doshi [facility]#[id number] [address] [facility] [address] [facility] [address] To Whom it may concern, Larry was seen in our office this morning, making it necessary to be late for work. Sincerely, GEORGE Whitehead PT ED Observed: 01/19/2018 Status: COMPLETED Source: [place] 4:15 PM CLINIC OTHER CAMPUS REPOSITORY HNO ID: [id number] Author: Latisha (Rn) CORWIN Barry Service: (none) Author Type: Registered Nurse Type: Patient Education Filed: 01/19/2018 4:16 PM Note Text: POST OP LEARNING RESPONSE INSTRUCTION PROVIDED TO: Patient METHOD OF INSTRUCTION: Teach Back done Individual instruction Written instruction - handouts Verbal instruction PATIENT / FAMILY RESPONSE: Verbalizes understanding of: POST-OPERATIVE INSTRUCTIONS-Correct actions to take to reduce postoperative complications FOLLOW-UP PLAN: Patient instructed to call with any further issues Contact information given. SUPPLEMENTAL MATERIAL: None REFERRAL (RECOMMENDATION): None Electronically Signed By: Latisha Barry RN In Department: [facility] ENDOSCOPY ANES POST Observed: 01/19/2018 Status: COMPLETED Source: [place] 4:04 PM [facility] REPOSITORY HNO ID: [id number] Author: Harrison Sparrow Service: Anesthesiology Author Type: Anesthesiologist Type: Anesthesia PostOp Filed: 01/19/2018 4:05 PM Note Text: POST ANESTHESIA EVALUATION NOTE SERVICE DATE: 01/19/2018 SERVICE TIME: 1544 : 1975 Vitals: 01/19/18 1209 01/19/18 1500 01/19/18 1545 Temp: 36 ?C (96.8 ?F) 36.7 ?C (98.1 ?F) 36.6 ?C (97.9 ?F) 01/19/18 1500 01/19/18 1515 01/19/18 1530 01/19/18 1545 BP: 117/72 116/73 117/74 126/82 01/19/18 1500 01/19/18 1515 01/19/18 1530 01/19/18 1545 Pulse: 83 74 80 71 01/19/18 1500 01/19/18 1515 01/19/18 1530 01/19/18 1545 Resp: 16 16 16 16 01/19/18 1500 01/19/18 1515 01/19/18 1530 01/19/18 1545 SpO2: 100% 99% 96% 96% Validated Vital Signs: yes POST ANES STATUS: No apparent anesthetic complications. The patient is appropriately hydrated with stable respiratory and cardiovascular status. Patient has safe and adequate airway control. The patient has appropriate pain relief and no significant post operative nausea or vomiting. The patient has achieved baseline mental status. Further assessment by Anesthesia Service: None Other Remarks: SIGNATURE: Harrison Sparrow MD PATIENT NAME: Larry Doshi DATE: January 19, 2018 TIME: 4:04 PM PAGER/CONTACT #: [phone] NURSING PROG Observed: 01/19/2018 Status: COMPLETED Source: [place] 3:32 PM [facility] REPOSITORY HNO ID: [id number] Author: Latisha (Rn) CORWIN Barry Service: (none) Author Type: Registered Nurse Type: Nursing Progress Note Filed: 01/19/2018 3:33 PM Note Text: Nursing Progress Note Patient Name: Larry Doshi Patient Location: [facility] Endo/[facility] Endo @1530 Dr. Jim at bedside discussing results and HGI. Pt appropriate and asking questions. Pt sleeping at this time. RA pulse ox 96%. Passing intermittent flatus. Denies pain. This note was completed by: Latisha Barry RN SURGICAL PATHOLOGY Observed: 01/19/2018 Status: F Source: [place] 3:15 PM [facility] REPOSITORY Specimen originated from [facility] Specimen #: [id number] Submitting Physician: JIMI JIM MD FINAL DIAGNOSIS 1. Jejunum, biopsy (A) - Small-bowel mucosa with no diagnostic abnormalities. 2. Stomach, antrum, biopsy (B) - Antral-type gastric mucosa with no diagnostic abnormalities. - No Helicobacter organisms identified. 3. Gastroesophageal junction, biopsy (C) - Inflamed cardia- type gastric mucosa, negative for intestinal metaplasia. - Squamous mucosa with mild reactive epithelial changes. 4. Esophagus, biopsy (D) - Squamous mucosa with no diagnostic abnormalities. - No prominence in eosinophils or lymphocytes and no intestinal metaplasia. 5. Terminal ileum, biopsy (G) - Small-bowel mucosa with no diagnostic abnormalities. 6. Colon, random, biopsy (F) - Fragments of colonic mucosa with no diagnostic abnormality. /[facility] 01/20/2018 Az Mai M.D., Ph.D. (Electronic Signature) SPECIMEN SUBMITTED A: JEJUNUM B: ANTRUM C: GE JUNCTION D: ESOPHAGUS E: TERMINAL ILEUM F: RANDOM COLON BIOPSIES CLINICAL DATA HISTORY ABDOMINAL PAIN, DIARRHEA, LMP: NA GROSS DESCRIPTION A. Received in formalin is one piece of isaac, soft tissue measuring 0.3 x 0.3 x 0.2 cm. Totally submitted in one cassette. B. Received in formalin is one piece of isaac, soft tissue measuring 0.3 x 0.2 x 0.2 cm. Totally submitted in one cassette. C. Received in formalin is one piece of isaac-white, soft tissue measuring 0.4 x 0.3 x 0.1 cm. Totally submitted in one cassette. D. Received in formalin are two pieces of isaac-white, soft tissue aggregating to 0.8 x 0.2 x 0.1 cm. Totally submitted in two cassettes. E. Received in formalin is one piece of isaac, soft tissue measuring 0.7 x 0.2 x 0.1 cm. Totally submitted in one cassette. F. Received in formalin are two pieces of isaac, soft tissue aggregating to 0.7 x 0 2 x 0.1 cm. Totally submitted in one cassette. Gross examination performed at [facility], [address] [place] [address] FFS 01/19/2018 9:01:32 PM Date of Report: 01/20/2018 Date of Procedure: 01/19/2018 Date of Receipt: 01/19/2018 Submitted by: JIMI JIM MD Location: [facility] Diagnostic interpretation performed at [facility], [address] [place] [address]. Performed By: #### PATHS #### [employer] [address] [place] [address] [phone] ANES PREOP Observed: 01/19/2018 Status: COMPLETED Source: [place] 1:38 PM CLINIC OTHER CAMPUS REPOSITORY HNO ID: [id number] Author: Harrison Sparrow Service: Anesthesiology Author Type: Anesthesiologist Type: Anesthesia PreOp Filed: 01/19/2018 1:42 PM Note Text: ANESTHESIOLOGY DAY OF SURGERY NOTE SERVICE DATE: 01/19/2018 SERVICE TIME: 1300 : 1975 Procedure(s) (LRB): COLONOSCOPY (N/A) EGD (N/A) Surgeon(s): Jimi Jmi Estimated body mass index is 28.78 kg/m? as calculated from the following: Height as of this encounter: 156.2 cm (5' 1.5). Weight as of this encounter: 70.2 kg (154 lb 12.8 oz). Most recent hematocrit and potassium results: Hematocrit 41.7 09/25/2017 Potassium 3.8 12/18/2017 ANES DOS/PREOP NOTE: Vitals: 01/19/18 1209 BP: 165/98 Pulse: 112 Resp: 18 Temp: 36 ?C (96.8 ?F) TempSrc: Temporal Artery SpO2: 96% Weight: 70.2 kg (154 lb 12.8 oz) Height: 156.2 cm (5' 1.5) ACTIVE PROBLEM LIST Lumbago Gerd (Gastroesophageal Reflux Disease) Hidradenitis Suppurativa Tobacco Use Disorder Neck Pain, Chronic Epigastric Pain Hematemesis Altered Bowel Habits Essential Hypertension Cervical Spine Disease PAST MEDICAL HISTORY Diagnosis Date - Cervical intraepithelial neoplasia 2006 - Closed C7 fracture (HCC) 06/16/2016 - Closed fracture of cervical vertebra (HCC) 09/25/2016 - Essential hypertension 01/09/2018 - Gastritis - GERD (gastroesophageal reflux disease) 12/11/2011 - Hidradenitis suppurativa 12/11/2011 - Lumbago 12/11/2011 - Spondylolisthesis 01/01/2012 - Tobacco abuse - Traumatic compression fracture of T2 thoracic vertebra (HCC) 06/16/2016 PAST SURGICAL HISTORY Procedure Laterality Date - CERVIX UTERI CONIZA LP ELCTRO EXCI 2006 LEEP-Cervix - EGD W/O OR W/BRUSH/WASH 2009 EGD, Dr. Richardson - EGD W/O OR W/BRUSH/WASH 01/05/15 EGD - LIGATE FALLOPIAN TUBE 2006 Tubal ligation - VAGINAL HYSTERECTOMY Hysterectomy, vaginal FAMILY HISTORY Problem Relation Age of Onset - Diabetes Mother - Heart Mother arryhtmia - Cervical Cancer Mother - Diabetes Father [place] 2012, - Coronary Artery Disease Father - COPD Father - Hypertension Father - COPD Sister - Hypertension Sister - Hypertension Sister - None Sister Social History: Social History Substance Use Topics - Smoking status: Current Every Day Smoker Packs/day: 1.50 Years: 23.00 Types: Cigarettes - Smokeless tobacco: Never Used - Alcohol use 36.0 oz/week 24 Cans of Beer (12oz) per week No current facility-administered medications on file prior to encounter. Current Outpatient Prescriptions on File Prior to Encounter: ketotifen fumarate (ZADITOR) 0.025 % (0.035 %) ophthalmic solution Use 1 Drop in both eyes twice daily. pantoprazole DR (PROTONIX) 40 mg tablet Take 1 tablet by mouth once daily. Take on empty stomach, 1/2 hr before meal. gabapentin (NEURONTIN) 600 mg tablet Take 600 mg by mouth twice daily. Per Dr. Salinas ondansetron orally disintegrating (ZOFRAN ODT) 4 mg disintegrating tablet Take 1 tablet by mouth every 6 hours as needed for Nausea/Vomiting. albuterol (PROVENTIL) 5 mg/mL nebu Inhale 0.5 mL as instructed one time only for 1 dose. 1 DOSE NOW - BACK OFFICE. PLACE 0.5 ML PER DROPPER AND 2.5 ML OF NORMAL SALINE INTO RESERVOIR. bisoprolol-hydrochlorothiazide (ZIAC) 2.5-6.25 mg per tablet Take 1 tablet by mouth once daily. albuterol HFA (VENTOLIN HFA) 90 mcg/actuation inhaler Inhale 2 Puffs as instructed every 4 hours as needed for Wheezing/Shortness of Breath. Current Facility-Administered Medications: NaCl 0.9% iv infusion 30 mL/hr INTRAVENOUS CONTINUOUS Jimi Jim Last Rate: 30 mL/hr at 01/19/18 1230 30 mL/hr at 01/19/18 1230 Allergies: ALLERGIES Allergen Reactions - Bactrim [Sulfametho* Rash - Wellbutrin [Bupropi* Other: See Comments Chest pain, hot, felt like I was gonna pass out DOS EXAM: Adequate NPO Status: Yes Anesthetic Risks, Benefits, Alternatives, Personnel and Consent Discussed: Yes Patient agrees to proceed: Yes Previous Anesthesia: No history of adverse event Airway Assessment: MP 2; Neck ROM: Full ROM without neurologic symptoms; Airway Evaluation: No significant abnormalities Symptoms of Sleep Apnea: None Dentition: Teeth intact Additional Physical Exam: Lungs: Patient health status unchanged since recent history and physical. See history and physical for exam findings. Cardiac: Patient health status unchanged since recent history and physical. See history and physical for exam findings. Additional Pertinent Findings: N/A Blood Products: Not anticipated for this procedure Anesthetic Plan: MAC with general as back up Anesthetic Monitoring: Standard ASA Monitors Pain Management Plan: Parenteral or Oral ASA Class: 3 Other Medical Problems: c/o epigastric pain, occasional hemetemasis, occasional blood per rectum Chronic Beta Mc medication administered within 24 hours: N/A I have interviewed and examined the patient. I have reviewed the medical record and/or the pre-anesthesia evaluation, pertinent labs, and test results. Significant changes in the patient's condition since the History and Physical, not otherwise documented in primary service progress notes: No This contains updated information obtained within 48 hours of Surgery/Procedure. SIGNATURE: Harrison Sparrow MD PATIENT NAME: Larry Doshi DATE: January 19, 2018 TIME: 1:39 PM CSN: [id number] PT ED Observed: 01/19/2018 Status: COMPLETED Source: [place] 12:25 PM [facility] OTHER JUSTICE REPOSITORY HNO ID: [id number] Author: Rolo GonzalezRn) CORWIN Ruiz Service: Nursing Author Type: Registered Nurse Type: Patient Education Filed: 01/19/2018 12:26 PM Note Text: PRE OP LEARNING ASSESSMENT PROCEDURE/SURGERY: SURGERY: Colonoscopy/Egd READINESS TO LEARN COGNITIVE ABILITY: Alert and oriented MOTIVATION TO LEARN: Eager FAMILY SUPPORT: High - Very involved in pt care PATIENT LEARNS BEST BY: Written Instruction - Hand-outs Verbal Instruction FACTORS AFFECTING LEARNING: None PHYSICAL LIMITATIONS AFFECTING LEARNING: None Electronically Signed By: Rolo Ruiz RN In Department: [facility] ENDOSCOPY NURSING PROG Observed: 01/16/2018 Status: COMPLETED Source: [place] 10:27 AM [facility] OTHER JUSTICE REPOSITORY HNO ID: [id number] Author: Oxana GonzalezRnRafael Garcia RN Service: (none) Author Type: Registered Nurse Type: Nursing Progress Note Filed: 01/16/2018 10:29 AM Note Text: PACC Nurse Progress Note History AND Physical: PACC Visit Date: 01/09/18 Original HANDP Date: 01/09/18 ED visit Date: N/A Outside HANDP Scanned Date: N/A Labs Within Last 6 Months: N/A Imaging Within Last 12 Months: N/A Cardiac Testing: N/A Last Menstrual Period: LMP Date: N/A S/P Hysterectomy: Yes BMI Percentile (PEDS): N/A Risk Assessment: N/A Anesthesia Review: N/A Narrative: N/A Pre-op Considerations: Patient has had a hysterectomy Chart Check: COMPLETED Oxana Garcia RN January 16, 2018 10:27 AM HISTORY PHYSICAL Observed: 01/09/2018 Status: COMPLETED Source: [place] 3:58 PM [facility] REPOSITORY HNO ID: [id number] Author: Purnima Phillips ([place]) Service: (none) Author Type: Physician Clinical Microbiologist Type: HANDP Filed: 01/09/2018 4:24 PM Note Text: HISTORY AND PHYSICAL EXAMINATION SERVICE DATE: 01/09/2018 SERVICE TIME: 3:58 PM PRIMARY CARE PHYSICIAN: Donald Henderson MD REASON FOR VISIT: Larry Doshi is a 42 year old female who is scheduled for Colonoscopy EGD at the request of Dr. Jimi Jim for consultation. My final recommendation will be communicated back to the requesting physician by way of shared medical record or letter. The patient has the following: ACTIVE PROBLEM LIST Lumbago Gerd (Gastroesophageal Reflux Disease) Hidradenitis Suppurativa Tobacco Use Disorder Neck Pain, Chronic Epigastric Pain Hematemesis Altered Bowel Habits Subjective CHIEF COMPLAINT: GERD, nausea and vomiting HPI: 42 yo female with chronic GERD for yrs and over the past few months she has increasing stomach burning and some vomiting with blood. Pain can be mid epigastric. Occasional diarrhea and blood in the stool. Prior EGD's showed inflammation. Prior treatment Carafate and Protonix. PAST MEDICAL HISTORY Diagnosis Date - Cervical intraepithelial neoplasia 2006 - Closed C7 fracture (HCC) 06/16/2016 - Closed fracture of cervical vertebra (HCC) 09/25/2016 - Gastritis - GERD (gastroesophageal reflux disease) 12/11/2011 - Hidradenitis suppurativa 12/11/2011 - Lumbago 12/11/2011 - Spondylolisthesis 01/01/2012 - Tobacco abuse - Traumatic compression fracture of T2 thoracic vertebra (HCC) 06/16/2016 PAST SURGICAL HISTORY Procedure Laterality Date - CERVIX UTERI CONIZA LP ELCTRO EXCI 2006 LEEP-Cervix - EGD W/O OR W/BRUSH/WASH 2009 EGD, Dr. 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 Yes ondansetron orally disintegrating (ZOFRAN ODT) 4 mg disintegrating tablet Take 1 tablet by mouth every 6 hours as needed for Nausea/Vomiting. Yes bisoprolol-hydrochlorothiazide (ZIAC) 2.5-6.25 mg per tablet Take 1 tablet by mouth once daily. Yes ketotifen fumarate (ZADITOR) 0.025 % (0.035 %) ophthalmic solution Use 1 Drop in both eyes twice daily. Yes pantoprazole DR (PROTONIX) 40 mg tablet Take 1 tablet by mouth once daily. Take on empty stomach, 1/2 hr before meal. Yes gabapentin (NEURONTIN) 600 mg tablet Take 600 mg by mouth three times daily. Per Dr. Salinas Yes albuterol (PROVENTIL) 5 mg/mL nebu Inhale 0.5 mL as instructed one time only for 1 dose. 1 DOSE NOW - BACK OFFICE. PLACE 0.5 ML PER DROPPER AND 2.5 ML OF NORMAL SALINE INTO RESERVOIR. albuterol HFA (VENTOLIN HFA) 90 mcg/actuation inhaler Inhale 2 Puffs as instructed every 4 hours as needed for Wheezing/Shortness of Breath. No medication comments found. ALLERGIES Allergen Reactions - Bactrim [Sulfametho* Rash - Wellbutrin [Bupropi* Other: See Comments Chest pain, hot, felt like I was gonna pass out REVIEW OF SYSTEMS: PAIN ASSESSMENT: General: No weight loss, malaise or fevers. 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 + migraines, Negative for TIA's Seizures Stroke-residual deficit Respiratory: Positive for Tobacco Use 2 ppd , recently cough ? allergy related., Negative for Asthma, COPD, Home O2, Pneumonia within 6 weeks (date) does not use inhaler Cardiovascular: Positive for: Hypertension, 10/2017- was getting palpitations and facial erythema, recent Holter monitor done and NL, Better since starting BP med, Negative for Recent VA, Arrhythmia, CHF, Valvular Heart Disease, DVT/PE GI: Positive for GERD, see HPI, nausea and vomiting , Negative for PUD, Hepatitis, Liver disease, Pancreatitis, IBS, Diverticulitis : No history of dysuria, frequency or incontinence,, stones or chronic kidney disease ROBOTICS MECHANIC: Negative for abnormal vaginal bleeding, abnormal vaginal discharge. : N/A, No LMP recorded. Patient has had a hysterectomy. Endocrine: No history of diabetes. Has not taken steroids within the past 30 days. No history of endocrinological symptoms or problems. Hematology: No history of bleeding or clotting disorder. Pt is not taking anti-coagulation or platelet medications. No history of hematological symptoms or problems. Oncology: No history of CA metastasis, chemo within 30 days, or radiotherapy within 90 days. Has not lost 10% of body wt in 6 months. No history of oncological symptoms or problems. Psych: No history of psychiatric symptoms or problems. Musculoskeletal: chronic neck and back pain Skin: Negative for lesions, rash and itching. Objective PHYSICAL EXAM: VITALS: BP 132/81 Pulse 88 Temp (Src) 97.7 (Temporal Artery) Ht 5' 1.5 (1.56m) Wt 154 lb 12.8 oz (70.2kg) SpO2 95% BMI 28.78 kg/(m2). General: Alert and oriented, No acute distress, Healthy appearance Skin: Normal color, no rash, no lesions. HEENT: EOM, pupils equal, round and reactive. Cardiovascular: Normal S1 AND S2, no rubs, murmurs or gallops. No JVD. Pulse regular. Lungs: Normal breath sounds, no wheezes or crackles. Abdomen: Soft, non-tender, no rigidity. Extremities: No deformity, no edema or tenderness, no joint swelling or clubbing. Neurological: Normal cognition and motor skills. Gait normal. No weakness or sensory deficit. Pulses: Carotid and radial pulses normal +2. Diagnostic tests reviewed for today's visit: Lab Value Units Date High Low HB 13.8 g/dL 09/25/2017 15.5 11.5 HCT 41.7 % 09/25/2017 46.0 36.0 WBC 6.66 k/uL 09/25/2017 11.00 3.70 PLT 240 k/uL 09/25/2017 400 150 NA 140 mmol/L 12/18/2017 144 136 K 3.8 mmol/L 12/18/2017 5.1 3.7 GLUC 100 mg/dL 12/18/2017 99 74 BUN 10 mg/dL 12/18/2017 21 7 CREAT 0.99 mg/dL 12/18/2017 0.96 0.58 PTSEC No results within date range. INR No results within date range. APTT No results within date range. ALT 12 U/L 12/18/2017 38 7 AST 17 U/L 12/18/2017 35 13 TBILI 0.3 mg/dL 12/18/2017 1.3 0.2 TSH No results within date range. Lab Value Units Date High Low HCGQT No results within date range. UHCG No results within date range. HCG, BODY* No results within date range. Lab Value Units Date High Low ABORHD No results within date range. ABSCREEN No results within date range. No results found for: HBA1C Most recent labs Assessment ASSESSMENT HTN- well controlled Tobacco use- currently 2 ppd GERD- on rx Cervical spine issues and neuropathy right arm METS: Climb a flight of stairs or walk up a hill (5.50 METs) ASA Class: 3 ANESTHESIA FINDINGS: Intubation History: No history of difficult intubation Significant Anesthesia Considerations: None Airway Exam: General: Normal appearance Mallampati Score is CLASS II ULBT: Class I - Lower incisors can bite the upper lip above the johann line Neck: Normal appearance and function, Distance from hyoid to mentum during neck extension is at least 3 finger breaths Mouth: Normal tongue size Dentition: Intact Airway History: No abnormal airway history STOP BANG Score: Criteria: Hypertension Score = 1 PLAN This patient is optimally prepared for surgery. CONSULTS: Patient does not require consults for optimization at this time. The Following Tests/Procedures Have Been Initiated: Labs not indicated per PACC protocol, EKG not indicated per PACC protocol Planned Anesthetic: MAC Instructions Given to Patient: Patient given verbal and written preop instructions and voices comprehension and compliance. SIGNATURE: Purnima Phillips PA-C PATIENT NAME: Larry Doshi DATE: January 09, 2018 TIME: 3:58 PM PAGER/CONTACT #: [id number] Observed: 12/31/2017 Status: COMPLETED Source: [place] 12:00 AM CLINIC OTHER CAMPUS REPOSITORY Patient:Larry Doshi MRN: <[id number]> Height:5' 1.5(1.562 m) Weight:154 lb 12.8 oz (70.217 kg) Outpatient Medications as of 01/19/18: sucralfate (CARAFATE) 1 gram tablet ondansetron orally disintegrating (ZOFRAN ODT) 4 mg disintegrating tablet albuterol (PROVENTIL) 5 mg/mL nebu bisoprolol-hydrochlorothiazide (ZIAC) 2.5-6.25 mg per tablet ketotifen fumarate (ZADITOR) 0.025 % (0.035 %) ophthalmic solution pantoprazole DR (PROTONIX) 40 mg tablet gabapentin (NEURONTIN) 600 mg tablet albuterol HFA (VENTOLIN HFA) 90 mcg/actuation inhaler Admission/Clinic Administered Medications as of 01/19/18: NaCl 0.9% iv infusion Problem List: Lumbago [M54.5] GERD (gastroesophageal reflux disease) [K21.9] Hidradenitis suppurativa [L73.2] Tobacco use disorder [F17.200] Neck pain, chronic [M54.2, G89.29] Epigastric pain [R10.13] Hematemesis [K92.0] Altered bowel habits [R19.4] Essential hypertension [I10] Cervical spine disease [M48.9] Allergies: Bactrim [Sulfamethoxazole] Wellbutrin [Bupropion Hcl] Date Verified: 01/19/18 Lab Values No results within the last 30 days for the following basenames: K,HCT Progress Notes ([facility] CR): Melissa Henning Ma 12/23/2017 4:44 PM Signed Patient needs to be scheduled for a Colonoscopy/EGD MAC with Dr. Jim in [place]. Please call the patient to set this up. Melissa Juvencio Brennanie Gideon 12/31/2017 11:33 AM Signed 01-19-2018 Colon/EGD Ari Sotelo HISTORY PHYSICAL Observed: 12/23/2017 Status: COMPLETED Source: [place] 4:04 PM [facility] REPOSITORY HNO ID: [id number] Author: Charlene Jacob) Romi Service: (none) Author Type: Nurse Practitioner Type: HANDP Filed: 12/23/2017 4:53 PM Note Text: Larry Doshi a 42 year old female who is a consultation requested by bailey Zhang NP, for an opinion regarding hematemesis. My final recommendations will be communicated back to the requesting provider by way of shared Medical record. The patient was seen by Bailey on 11/24/17, leading to this consultation. That note has been reviewed and part as follows: Hematemesis with nausea - ICD9: 578.0, 787.02, ICD10: K92.0 Referred to GI in ER for vomiting blood, doctor was not covered by insurance so she needs new referral. - CONSULT TO GASTROENTEROLOGY The patient has been seen previously. The patient was seen by Dr. Avila for upper endoscopy 01/05/15 for suspected GERD. The procedure report has been reviewed and findings as follows: Findings: ? ? ?Savary-Sotelo Grade II (multiple lesions and folds, noncircumferential, ? ? ?with or without confluence) esophagitis with no bleeding was found 37 to ? ? ?40 cm from the incisors. Biopsies were taken with a cold forceps for ? ? ?histology. LES at 40cm. ? ? ?The entire examined stomach was normal. Biopsies were taken with a cold ? ? ?forceps for histology. Biopsies were taken with a cold forceps for ? ? ?Helicobacter pylori testing. ? ? ?The examined duodenum was normal. FINAL DIAGNOSIS 1. Stomach, antrum, biopsy (A) - Gastric antral-type mucosa with mild reactive gastropathy. No Helicobacter pylori organisms are identified. ? 2. Esophagus, biopsy at 38 cm (B) - Squamous mucosa with focal reactive epithelial changes suggestive of gastroesophageal reflux. - Cardiofundic-type mucosa with no diagnostic abnormality. ? Presenting complaint: The patient presents today reporting that she is taking pantoprazole every morning. She takes sucralfate about twice a day, as needed. She reports feeling sick to her stomach intermittently. Has Zofran from when she had the flu. The patient reports always pain right here -pointing to epigastric region. Sometimes burning. She reports intermittent hematemesis. The last time was about 11/24. The patient reports frequent headaches for which she takes Excedrin Migraine, taking daily, 1000mg - 1500mg. Recommended she stop using that due to the aspirin. The patient reports a change in bowel habits and rectal bleeding. Having a bowel movement at least once a day. Stools vary from loose to constipation for about a year or so. She sometimes sees blood on the paper. REVIEW OF SYSTEMS: GENERAL: No weight loss, malaise or fevers HEENT: Tons of headaches No changes in hearing or vision, no nose bleeds or other nasal problems NECK: Negative for lumps, goiter, pain and significant neck swelling RESPIRATORY: Cough; dry at present time CARDIOVASCULAR: Hypertension. On prescription. GI: The patient states that her appetite has been good. She does get hungry. There has been some nausea, some vomiting. She denies dysphagia and denies odynophagia. There has been indigestion with heartburn. There has been regurgitation. Bowel habits have been irregular. There has been diarrhea. There has partially been constipation. The patient admits to rectal bleeding. There has not been melena. Intermittent abdominal pain that is located in the left lower and right lower quadrant. PSYCH: Negative for sleep disturbance, mood disorder and recent psychosocial stressors. HEMATOLOGY/LYMPHOLOGY Negative for prolonged bleeding, bruising easily or swollen nodes ENDOCRINE: Negative for thyroid or diabetes. NEURO: Migraine headaches and Tension headaches All other reviewed and negative other than HPI. PAST MEDICAL HISTORY Diagnosis Date - Cervical intraepithelial neoplasia 2005 - Closed C7 fracture (HCC) 06/16/2016 - Closed fracture of cervical vertebra (HCC) 09/25/2016 - Gastritis - GERD (gastroesophageal reflux disease) 12/11/2011 - Hidradenitis suppurativa 12/11/2011 - Lumbago 12/11/2011 - Spondylolisthesis 01/01/2012 - Tobacco abuse - Traumatic compression fracture of T2 thoracic vertebra (HCC) 06/16/2016 PAST SURGICAL HISTORY Procedure Laterality Date - CERVIX UTERI CONIZA LP ELCTRO EXCI 2006 LEEP-Cervix - EGD W/O OR W/BRUSH/WASH 2009 EGD, Dr. Richardson - EGD W/O OR W/BRUSH/WASH 01/05/15 EGD - LIGATE FALLOPIAN TUBE 2006 Tubal ligation - VAGINAL HYSTERECTOMY Hysterectomy, vaginal FAMILY HISTORY Problem Relation Age of Onset - Diabetes Mother - Heart Mother arryhtmia - Cervical Cancer Mother - Diabetes Father [place] 2012, - Coronary Artery Disease Father - COPD Father - Hypertension Father - COPD Sister - Hypertension Sister - Hypertension Sister - None Sister Current Outpatient Prescriptions: albuterol (PROVENTIL) 5 mg/mL nebu Inhale 0.5 mL as instructed one time only for 1 dose. 1 DOSE NOW - BACK OFFICE. PLACE 0.5 ML PER DROPPER AND 2.5 ML OF NORMAL SALINE INTO RESERVOIR. Disp: 1 mL Rfl: 0 ondansetron orally disintegrating (ZOFRAN ODT) 4 mg disintegrating tablet Take 1 tablet by mouth every 6 hours as needed for Nausea/Vomiting. Disp: 12 tablet Rfl: 0 albuterol HFA (VENTOLIN HFA) 90 mcg/actuation inhaler Inhale 2 Puffs as instructed every 4 hours as needed for Wheezing/Shortness of Breath. Disp: 1 Inhaler Rfl: 0 bisoprolol-hydrochlorothiazide (ZIAC) 2.5-6.25 mg per tablet Take 1 tablet by mouth once daily. Disp: 30 tablet Rfl: 5 ketotifen fumarate (ZADITOR) 0.025 % (0.035 %) ophthalmic solution Use 1 Drop in both eyes twice daily. Disp: 1 Bottle Rfl: [address] (PROTONIX) 40 mg tablet Take 1 tablet by mouth once daily. Take on empty stomach, 1/2 hr before meal. Disp: 90 tablet Rfl: 3 gabapentin (NEURONTIN) 600 mg tablet Take 600 mg by mouth three times daily. Per Dr. Salinas Disp: Rfl: albuterol HFA (VENTOLIN HFA) 90 mcg/actuation inhaler Inhale 2 Puffs as instructed every 4 hours as needed for Wheezing/Shortness of Breath. Disp: 1 Inhaler Rfl: 0 No current facility-administered medications for this visit. SOCIAL HISTORY: Patient is . She smokes 1.5 ppd and reports her alcohol use as everyday having about 6 beers after work. PHYSICAL EXAMINATION: Blood pressure 132/89, pulse 111, height 156.2 cm (5' 1.5), weight 70.8 kg (156 lb). General Appearance: Well appearing, alert, in no acute distress, well-hydrated, well nourished. Skin: Skin color, texture, turgor normal, no suspicious rashes or lesions. Eyes: Anicteric sclera. Pupils are equally round and reactive to light. Extraocular movements are intact. Oropharynx: Lips, mucosa, and tongue normal, teeth and oropharynx normal. Neck: Supple, no adenopathy; thyroid symmetric, normal size. Lungs: Lungs clear to auscultation. No wheezing, rhonchi, rales. Heart: RRR without murmur,. Abdomen: Bowel sounds normal. Abdomen soft. Moderate tenderness to palpation midline epigastric region. Slight tenderness lower abdomen. No guarding or rebound. No masses, organomegaly. Extremities: No deformities, edema, skin discoloration, clubbing or cyanosis. Good capillary refill. Peripheral Pulses: Normal. Neurologic: Gait normal. Sensation grossly intact. Impression: Epigastric pain with intermittent hematemesis 2)aspirin and alcohol intake 3)Altered bowel habits Plan: The patient will be scheduled for an upper endoscopy and colonoscopy, with MAC sedation. Preparation for the procedures, using GoLytely as the laxative, have been explained in detail. The risks, benefits, anticipated outcomes and possible complications were mentioned. I explained the procedure in understandable terms and the patient was given printed material concerning the planned procedure. The patient had the opportunity to ask questions concerning the planned procedure. The patient freely consents to the planned procedure. The patient will continue pantoprazole and sucralfate. Zofran as needed. Stop Excedrin. Reduce alcohol intake. Smoking cessation encouraged. The patient is encouraged to call with any questions or concerns, or should there be any change in health status between now and the scheduled procedure. I have personally interviewed and examined this patient. I have read the information that the MA documented in this encounter. I spent 30 minutes in the visit, with more than 50% of the total nxad-hi-mnvy time of the visit in counseling / coordination of care. Charlene Llanos RN APRN.SHAHNAZ CNOV Observed: 12/23/2017 Status: COMPLETED Source: [place] 4:00 PM [facility] REPOSITORY [facility] LARRY DOSHI ([id number]) 1975 F [facility] Date Time Provider Department 12/23/17 4:00 PM CHARLENE LLANOS (JOAN) [facility] During your visit today, we recorded the following information about you: Pulse Blood pressure Weight Height 111/minute 132/89 70.8 kg 1.562 m Charlene Llanos RN APRN.SHAHNAZ 12/23/2017 4:53 PM Signed Larry Doshi a 42 year old female who is a consultation requested by bailey Zhang NP, for an opinion regarding hematemesis. My final recommendations will be communicated back to the requesting provider by way of shared Medical record. The patient was seen by Bailey on 11/24/17, leading to this consultation. That note has been reviewed and part as follows: Hematemesis with nausea - ICD9: 578.0, 787.02, ICD10: K92.0 Referred to GI in ER for vomiting blood, doctor was not covered by insurance so she needs new referral. - CONSULT TO GASTROENTEROLOGY The patient has been seen previously. The patient was seen by Dr. Avila for upper endoscopy 01/05/15 for suspected GERD. The procedure report has been reviewed and findings as follows: Findings: ? ? ?Savary-Sotelo Grade II (multiple lesions and folds, noncircumferential, ? ? ?with or without confluence) esophagitis with no bleeding was found 37 to ? ? ?40 cm from the incisors. Biopsies were taken with a cold forceps for ? ? ?histology. LES at 40cm. ? ? ?The entire examined stomach was normal. Biopsies were taken with a cold ? ? ?forceps for histology. Biopsies were taken with a cold forceps for ? ? ?Helicobacter pylori testing. ? ? ?The examined duodenum was normal. FINAL DIAGNOSIS 1. Stomach, antrum, biopsy (A) - Gastric antral-type mucosa with mild reactive gastropathy. No Helicobacter pylori organisms are identified. ? 2. Esophagus, biopsy at 38 cm (B) - Squamous mucosa with focal reactive epithelial changes suggestive of gastroesophageal reflux. - Cardiofundic-type mucosa with no diagnostic abnormality. ? Presenting complaint: The patient presents today reporting that she is taking pantoprazole every morning. She takes sucralfate about twice a day, as needed. She reports feeling sick to her stomach intermittently. Has Zofran from when she had the flu. The patient reports always pain right here -pointing to epigastric region. Sometimes burning. She reports intermittent hematemesis. The last time was about 11/24. The patient reports frequent headaches for which she takes Excedrin Migraine, taking daily, 1000mg - 1500mg. Recommended she stop using that due to the aspirin. The patient reports a change in bowel habits and rectal bleeding. Having a bowel movement at least once a day. Stools vary from loose to constipation for about a year or so. She sometimes sees blood on the paper. REVIEW OF SYSTEMS: GENERAL: No weight loss, malaise or fevers HEENT: Tons of headaches No changes in hearing or vision, no nose bleeds or other nasal problems NECK: Negative for lumps, goiter, pain and significant neck swelling RESPIRATORY: Cough; dry at present time CARDIOVASCULAR: Hypertension. On prescription. GI: The patient states that her appetite has been good. She does get hungry. There has been some nausea, some vomiting. She denies dysphagia and denies odynophagia. There has been indigestion with heartburn. There has been regurgitation. Bowel habits have been irregular. There has been diarrhea. There has partially been constipation. The patient admits to rectal bleeding. There has not been melena. Intermittent abdominal pain that is located in the left lower and right lower quadrant. PSYCH: Negative for sleep disturbance, mood disorder and recent psychosocial stressors. HEMATOLOGY/LYMPHOLOGY Negative for prolonged bleeding, bruising easily or swollen nodes ENDOCRINE: Negative for thyroid or diabetes. NEURO: Migraine headaches and Tension headaches All other reviewed and negative other than HPI. PAST MEDICAL HISTORY Diagnosis Date - Cervical intraepithelial neoplasia 2006 - Closed C7 fracture (HCC) 06/16/2016 - Closed fracture of cervical vertebra (HCC) 09/25/2016 - Gastritis - GERD (gastroesophageal reflux disease) 12/11/2011 - Hidradenitis suppurativa 12/11/2011 - Lumbago 12/11/2011 - Spondylolisthesis 01/01/2012 - Tobacco abuse - Traumatic compression fracture of T2 thoracic vertebra (HCC) 06/16/2016 PAST SURGICAL HISTORY Procedure Laterality Date - CERVIX UTERI CONIZA LP ELCTRO EXCI 2005 LEEP-Cervix - EGD W/O OR W/BRUSH/WASH 2009 EGD, Dr. Richardson - EGD W/O OR W/BRUSH/WASH 01/05/15 EGD - LIGATE FALLOPIAN TUBE 2006 Tubal ligation - VAGINAL HYSTERECTOMY Hysterectomy, vaginal FAMILY HISTORY Problem Relation Age of Onset - Diabetes Mother - Heart Mother arryhtmia - Cervical Cancer Mother - Diabetes Father [place] 2012, - Coronary Artery Disease Father - COPD Father - Hypertension Father - COPD Sister - Hypertension Sister - Hypertension Sister - None Sister Current Outpatient Prescriptions: albuterol (PROVENTIL) 5 mg/mL nebu Inhale 0.5 mL as instructed one time only for 1 dose. 1 DOSE NOW - BACK OFFICE. PLACE 0.5 ML PER DROPPER AND 2.5 ML OF NORMAL SALINE INTO RESERVOIR. Disp: 1 mL Rfl: 0 ondansetron orally disintegrating (ZOFRAN ODT) 4 mg disintegrating tablet Take 1 tablet by mouth every 6 hours as needed for Nausea/Vomiting. Disp: 12 tablet Rfl: 0 albuterol HFA (VENTOLIN HFA) 90 mcg/actuation inhaler Inhale 2 Puffs as instructed every 4 hours as needed for Wheezing/Shortness of Breath. Disp: 1 Inhaler Rfl: 0 bisoprolol-hydrochlorothiazide (ZIAC) 2.5-6.25 mg per tablet Take 1 tablet by mouth once daily. Disp: 30 tablet Rfl: 5 ketotifen fumarate (ZADITOR) 0.025 % (0.035 %) ophthalmic solution Use 1 Drop in both eyes twice daily. Disp: 1 Bottle Rfl: [address] (PROTONIX) 40 mg tablet Take 1 tablet by mouth once daily. Take on empty stomach, /2 hr before meal. Disp: 90 tablet Rfl: 3 gabapentin (NEURONTIN) 600 mg tablet Take 600 mg by mouth three times daily. Per Dr. Salinas Disp: Rfl: albuterol HFA (VENTOLIN HFA) 90 mcg/actuation inhaler Inhale 2 Puffs as instructed every 4 hours as needed for Wheezing/Shortness of Breath. Disp: 1 Inhaler Rfl: 0 No current facility-administered medications for this visit. SOCIAL HISTORY: Patient is . She smokes 1.5 ppd and reports her alcohol use as everyday having about 6 beers after work. PHYSICAL EXAMINATION: Blood pressure 132/89, pulse 111, height 156.2 cm (5' 1.5), weight 70.8 kg (156 lb). General Appearance: Well appearing, alert, in no acute distress, well-hydrated, well nourished. Skin: Skin color, texture, turgor normal, no suspicious rashes or lesions. Eyes: Anicteric sclera. Pupils are equally round and reactive to light. Extraocular movements are intact. Oropharynx: Lips, mucosa, and tongue normal, teeth and oropharynx normal. Neck: Supple, no adenopathy; thyroid symmetric, normal size. Lungs: Lungs clear to auscultation. No wheezing, rhonchi, rales. Heart: RRR without murmur,. Abdomen: Bowel sounds normal. Abdomen soft. Moderate tenderness to palpation midline epigastric region. Slight tenderness lower abdomen. No guarding or rebound. No masses, organomegaly. Extremities: No deformities, edema, skin discoloration, clubbing or cyanosis. Good capillary refill. Peripheral Pulses: Normal. Neurologic: Gait normal. Sensation grossly intact. Impression: Epigastric pain with intermittent hematemesis 2)aspirin and alcohol intake 3)Altered bowel habits Plan: The patient will be scheduled for an upper endoscopy and colonoscopy, with MAC sedation. Preparation for the procedures, using GoLytely as the laxative, have been explained in detail. The risks, benefits, anticipated outcomes and possible complications were mentioned. I explained the procedure in understandable terms and the patient was given printed material concerning the planned procedure. The patient had the opportunity to ask questions concerning the planned procedure. The patient freely consents to the planned procedure. The patient will continue pantoprazole and sucralfate. Zofran as needed. Stop Excedrin. Reduce alcohol intake. Smoking cessation encouraged. The patient is encouraged to call with any questions or concerns, or should there be any change in health status between now and the scheduled procedure. I have personally interviewed and examined this patient. I have read the information that the MA documented in this encounter. I spent 30 minutes in the visit, with more than 50% of the total svcx-og-njxq time of the visit in counseling / coordination of care. Charlene Llanos RN APRN.SHAHNAZ Llanos RN APRN.SHAHNAZ 12/23/2017 4:52 PM Addendum Avoid Excedrin due to the aspirin in it. Reduce alcohol intake and cigarette smoking.. Continue pantoprazole and sucralfate. Please follow the provided instructions for upper endoscopy and colonoscopy. You will be using GoLytely as the laxative during the preparation. You may start the laxative as early as 1:00 in the afternoon. The photoengraver will contact you, to schedule your procedures. This will be with the deeper sedation we call MAC (like you had for the upper in 2014) with Dr. Jim. This will be in [place]. Follow up with me after the procedure. Referring Provider: BAILEY ZHANG ([facility]) [[id number]] Allergies As of Date: 12/23/2017 Noted Allergy Reaction BACTRIM (SULFAMETHOXAZOLE) 12/13/2011 2 - Rash Date Reviewed: 12/23/2017 Reviewed by: Melissa Henning Ma - Fully Assessed Reason for Visit: nausea and vomiting [Other] Primary Visit Diagnosis:Altered bowel habits [R19.4] Other Visit Diagnoses:Lower abdominal pain [R10.30] Hematemesis with nausea [K92.0] Epigastric pain [R10.13] Nausea [R11.0] Order(s):COLONOSCOPY GEN ANES [[id number]] Order #: [id number] FUTURE EGD GEN ANES [[id number]] Order #: [id number] FUTURE peg 3350-electrolytes (COLYTE) 240-22.72-6.72 -5.84 gram solutionTake 4,000 mL by mouth one time only for 1 dose.Disp: 1 BottleRfl: 0 ondansetron orally disintegrating (ZOFRAN ODT) 4 mg disintegrating tabletTake 1 tablet by mouth every 6 hours as needed for Nausea/Vomiting.Disp: 12 tabletRfl: 0 Prescriptions as of 12/23/2017 Sig: PEG 3350 240 GRAM-ELECTROLYTE* Take 4,000 mL by mouth one ti* ONDANSETRON 4 MG DISINTEGRATI* Take 1 tablet by mouth every * ALBUTEROL SULFATE CONCENTRATE* Inhale 0.5 mL as instructed o* BISOPROLOL 2.5 MG-HYDROCHLORO* Take 1 tablet by mouth once d* KETOTIFEN 0.025 % (0.035 %) E* Use 1 Drop in both eyes twice* PANTOPRAZOLE 40 MG TABLET,DEL* Take 1 tablet by mouth once d* GABAPENTIN 600 MG TABLET Take 600 mg by mouth three ti* ALBUTEROL SULFATE HFA 90 MCG/* Inhale 2 Puffs as instructed * Problem List As Of Date 12/23/2017 Noted Resolved Lumbago [M54.5] INVALID FOR* GERD (gastroesophageal reflux disease) [K21.9] INVALID FOR* Hidradenitis suppurativa [L73.2] INVALID FOR* Spondylolisthesis [M43.10] INVALID FOR*09/23/2017 Tobacco abuse [Z72.0] INVALID FOR*09/23/2017 PONV (postoperative nausea and vomiting) [R11.2*INVALID FOR*08/21/2016 Esophageal reflux [K21.9] INVALID FOR*01/05/2015 Neck pain [M54.2] INVALID FOR*09/23/2017 Closed fracture of cervical vertebra (HCC) [S12*INVALID FOR*09/23/2017 Tobacco use disorder [F17.200] INVALID FOR* Neck pain, chronic [M54.2, G89.29] INVALID FOR* Other instructions from your clinician: Avoid Excedrin due to the aspirin in it. Reduce alcohol intake and cigarette smoking.. Continue pantoprazole and sucralfate. Please follow the provided instructions for upper endoscopy and colonoscopy. You will be using GoLytely as the laxative during the preparation. You may start the laxative as early as 1:00 in the afternoon. The photoengraver will contact you, to schedule your procedures. This will be with the deeper sedation we call MAC (like you had for the upper in 2014) with Dr[address] Jim. This will be in [place]. Follow up with me after the procedure. Prescriptions ordered this encounter Disp Refills Start End PEG 3350 240 GRAM-ELECTROLYTES 22.72* 1 Todd* 0 12/23/2017 12/23/2017 Route: ORAL Sig: Take 4,000 mL by mouth one time only for 1 dose. ONDANSETRON 4 MG DISINTEGRATING TABL* 12 t* 0 12/23/2017 Route: ORAL Sig: Take 1 tablet by mouth every 6 hours as needed for Nausea/Vomiting. Medications Discontinued During This Encounter albuterol HFA (VENTOLIN HFA) 90 mcg/* 1 In* 0 11/11/2017 12/23/2017 Route: INHALATION Sig: Inhale 2 Puffs as instructed every 4 hours as needed for Wheezing/Shortness of Breath. Disc: Course of therapy completed ondansetron orally disintegrating (Z* 12 t* 0 11/11/2017 12/23/2017 Route: ORAL Sig: Take 1 tablet by mouth every 6 hours as needed for Nausea/Vomiting. Disc: Reason for discontinue is not on file. Follow-up and Disposition History Recorded Encounter Status:Closed by CHARLENE LLANOS CNP on 12/23/17 COMP METABOLIC PANEL Collected: 12/18/2017 Status: F Source: [place] 4:55 PM [facility] REPOSITORY TYPE CODE TESTS RESULT OUT OF REFERENCE UNITS RANGE LAB TP 6.3-8.0 g/dL Protein, Total 7.0 LAB ALB 3.9-4.9 g/dL Albumin 4.2 LAB CA 8.5-10.2 mg/dL Calcium, Total 9.1 LAB TBIL 0.2-1.3 mg/dL Bilirubin, Total 0.3 LAB ALKP 32-117 U/L Alkaline Phosphatase 63 LAB AST 13-35 U/L AST 17 LAB GLU 74-99 mg/dL Glucose High 100 Result Comment: The [place] [employer] (ADA) provides guidance for cutoff values for fasting glucose and random glucose. The ADA defines fasting as no caloric intake for at least 8 hours. Fas ting plasma glucose results between 100 to 125 mg/dL indicate increased risk for diabetes (prediabetes). Fasting plasma glucose results greater than or equal to 126 mg/dL meet the criteria for diagnosis of diabetes. In the absence of unequivocal hyperglycemia, results should be confirmed by repeat testing. In a patient with classic symptoms of hyperglycemia or hyperglycemic crisis, random plasma glucose results greater than or equal to 200 mg/dL meet the criteria for diagnosis of diabetes. Reference: Standards of Medical Care in Diabetes 2016, [place] [employer]. Diabetes Care. 2016.39(Suppl 1). LAB BUN 7-21 mg/dL BUN 10 LAB CRET 0.58-0.96 mg/dL Creatinine High 0.99 LAB NA 136-144 mmol/L Sodium 140 LAB K 3.7-5.1 mmol/L Potassium 3.8 LAB CL 97-105 mmol/L Chloride 100 LAB CO2 22-30 mmol/L CO2 27 LAB AGAP 9-18 mmol/L Anion Gap 13 LAB ALT 7-38 U/L ALT 12 LAB GFRAA eGFR- Amer. >60 LAB GFRNAA . eGFR-All Other Races >60 Result Comment: eGFR (Estimated GFR) Units of measure: mL/min/1.73 meters squared eGFR is derived from the reexpressed MDRD Study equation using the following parameters: serum creatinine, age, gender and race. The creatinine assay has been calibrated to be traceable to IDMS. An eGFR <60 mL/min/1.73m2 for >3 months is consistent with chronic kidney disease. Refer to KDOQI guidelines for clinical interpretation. In patients with unstable renal function, e.g. those with acute kidney injury, the eGFR may not accurately reflect actual GFR. Performed By: #### CMP #### [facility] [address] [place] [address] BASIC METABOLIC PANL Collected: 11/25/2017 Status: F Source: [place] 4:48 PM [facility] REPOSITORY TYPE CODE TESTS RESULT OUT OF REFERENCE UNITS RANGE LAB GLU 74-99 mg/dL Glucose 90 Result Comment: The [place] [employer] (ADA) provides guidance for cutoff values for fasting glucose and random glucose. The ADA defines fasting as no caloric intake for at least 8 hours. Fas ting plasma glucose results between 100 to 125 mg/dL indicate increased risk for diabetes (prediabetes). Fasting plasma glucose results greater than or equal to 126 mg/dL meet the criteria for diagnosis of diabetes. In the absence of unequivocal hyperglycemia, results should be confirmed by repeat testing. In a patient with classic symptoms of hyperglycemia or hyperglycemic crisis, random plasma glucose results greater than or equal to 200 mg/dL meet the criteria for diagnosis of diabetes. Reference: Standards of Medical Care in Diabetes 2016, [place] [employer]. Diabetes Care. 2016.39(Suppl 1). LAB BUN 7-21 mg/dL BUN 12 LAB CRET 0.58-0.96 mg/dL Creatinine High 1.05 LAB NA 136-144 mmol/L Sodium 138 LAB K 3.7-5.1 mmol/L Potassium 4.1 LAB CL 97-105 mmol/L Chloride 98 LAB CO2 22-30 mmol/L CO2 25 LAB AGAP 9-18 mmol/L Anion Gap 15 LAB CA 8.5-10.2 mg/dL Calcium, Total 9.4 LAB GFRAA eGFR- Amer. >60 LAB GFRNAA . eGFR-All Other Races 58 Result Comment: eGFR (Estimated GFR) Units of measure: mL/min/1.73 meters squared eGFR is derived from the reexpressed MDRD Study equation using the following parameters: serum creatinine, age, gender and race. The creatinine assay has been calibrated to be traceable to IDMS. An eGFR <60 mL/min/1.73m2 for >3 months is consistent with chronic kidney disease. Refer to KDOQI guidelines for clinical interpretation. In patients with unstable renal function, e.g. those with acute kidney injury, the eGFR may not accurately reflect actual GFR. Performed By: #### BMP #### [facility] [address] [place] [id number] PROGRESS Observed: 11/24/2017 Status: COMPLETED Source: [place] 3:14 PM [facility] REPOSITORY O ID: [id number] Author: Bailey Zhang (Senior Behavioral Scientist) Service: (none) Author Type: Nurse Practitioner Type: Progress Notes Filed: 11/24/2017 3:57 PM Note Text: CC Patient presents with: Recheck: 1 month F/U Headache: x 3 weeks HPI Larry Doshi is a 42 year old female who presents to the office for blood pressure. Her visit today is for follow-up. Patient was last seen for this approximately 1 month ago. Recent medication adjustments: Yes, newly diagnosed. Started on Ziac. Home BP's: does check BP's away from this office with average BP's in the 150's over 110's range, last week but has not checked since then. Symptoms referable to elevated blood pressure (headache, chest pain, palpitations, dyspnea, peripheral edema, fatigue, blurred vision): No but has been having headaches. Diagnosed with sinus infection yesterday, on Augmentin less than 24 hours. BP medications: Patient denies any side effects of her medication(s) and is compliant with their regimen. Last 4 Encounter BP Readings: Date: BP: 11/24/2017 108/76 11/23/2017 110/84 11/11/2017 112/68 11/04/2017 120/79[ (from Extended Vitals)[ Last 3 Encounter Wt Readings: Date: Wt: 11/24/2017 70.3 kg (155 lb) 11/23/2017 69.2 kg (152 lb 9.6 oz) 11/11/2017 69.4 kg (153 lb) REVIEW OF SYSTEMS See HPI PAST MEDICAL HISTORY Diagnosis Date - Cervical intraepithelial neoplasia 2006 - Closed C7 fracture (HCC) 06/16/2016 - Closed fracture of cervical vertebra (HCC) 09/25/2016 - Gastritis - GERD (gastroesophageal reflux disease) 12/11/2011 - Hidradenitis suppurativa 12/11/2011 - Lumbago 12/11/2011 - Spondylolisthesis 01/01/2012 - Tobacco abuse - Traumatic compression fracture of T2 thoracic vertebra (HCC) 06/16/2016 PAST SURGICAL HISTORY Procedure Laterality Date - CERVIX UTERI CONIZA LP ELCTRO EXCI 2006 LEEP-Cervix - EGD W/O OR W/BRUSH/WASH 2009 EGD, Dr. Richardson - EGD W/O OR W/BRUSH/WASH 01/05/15 EGD - LIGATE FALLOPIAN TUBE 2006 Tubal ligation - VAGINAL HYSTERECTOMY Hysterectomy, vaginal ALLERGIES Bactrim [Sulfamethoxazole] MEDICATIONS amoxicillin-clavulanic acid (AUGMENTIN) 875-125 mg per tablet Take 1 tablet by mouth twice daily for 7 days. fluconazole (DIFLUCAN) 100 mg tablet Take 1 tablet by mouth once daily for 3 days. ondansetron orally disintegrating (ZOFRAN ODT) 4 mg disintegrating tablet Take 1 tablet by mouth every 6 hours as needed for Nausea/Vomiting. albuterol HFA (VENTOLIN HFA) 90 mcg/actuation inhaler Inhale 2 Puffs as instructed every 4 hours as needed for Wheezing/Shortness of Breath. bisoprolol-hydrochlorothiazide (ZIAC) 2.5-6.25 mg per tablet Take 1 tablet by mouth once daily. ketotifen fumarate (ZADITOR) 0.025 % (0.035 %) ophthalmic solution Use 1 Drop in both eyes twice daily. pantoprazole DR (PROTONIX) 40 mg tablet Take 1 tablet by mouth once daily. Take on empty stomach, 1/2 hr before meal. gabapentin (NEURONTIN) 600 mg tablet Take 600 mg by mouth three times daily. Per Dr. Salinas albuterol (PROVENTIL) 5 mg/mL nebu Inhale 0.5 mL as instructed one time only for 1 dose. 1 DOSE NOW - BACK OFFICE. PLACE 0.5 ML PER DROPPER AND 2.5 ML OF NORMAL SALINE INTO RESERVOIR. albuterol HFA (VENTOLIN HFA) 90 mcg/actuation inhaler Inhale 2 Puffs as instructed every 4 hours as needed for Wheezing/Shortness of Breath. FAMILY HISTORY Problem Relation Age of Onset - Diabetes Mother - Heart Mother arryhtmia - Cervical Cancer Mother - Diabetes Father [place] 2012, - Coronary Artery Disease Father - COPD Father - Hypertension Father - COPD Sister - Hypertension Sister - Hypertension Sister - None Sister Social History Substance Use Topics - Smoking status: Current Every Day Smoker Packs/day: 1.50 Years: 23.00 Types: Cigarettes - Smokeless tobacco: Never Used - Alcohol use 36.0 oz/week 24 Cans of Beer (12oz) per week PHYSICAL EXAM BP 108/76 Pulse 73 Temp 36.9 ?C (98.4 ?F) (Temporal Artery) Resp 16 Wt 70.3 kg (155 lb) SpO2 96% BMI 27.90 kg/m? General Appearance: well appearing, in no acute distress, alert Lungs: Lungs clear to auscultation. No wheezing, rhonchi, rales Heart: RRR without murmur, gallop, or rubs. No ectopy Ext: no edema in LE bilaterally, good distal pulses ASSESSMENT/PLAN: 1. Essential hypertension - ICD9: 401.9, ICD10: I10 (primary diagnosis) - good control - Continue current medication(s) - Recommend home blood pressure monitoring, to bring results in on next visit - Recheck in 2 months, sooner should new symptoms or problems arise. - Goal of BP <140/90 2. Persistent headaches - ICD9: 784.0, ICD10: R51 Likely due to sinus infection. Follow-up in one week if no improvement or sooner if worsening 3. Hematemesis with nausea - ICD9: 578.0, 787.02, ICD10: K92.0 Referred to GI in ER for vomiting blood, doctor was not covered by insurance so she needs new referral. - CONSULT TO GASTROENTEROLOGY Prescription instructions reviewed with patient as applicable. Potential red flag symptoms discussed with the patient. Reviewed appropriate action plan to take if red flag symptoms occur. Patient agreeable to treatment plan Bailey Zhang APRN.COMPLETIONS MANAGER CNOV Observed: 11/24/2017 Status: COMPLETED Source: [place] 3:00 PM [facility] REPOSITORY Office Visit (INTMWS) DOSHILARRY OQUENDO Derrick ([id number]) 1975 F [place] Date Time Provider Department 11/24/17 3:00 PM BAILEY ZHANG (SHAHNAZ) INTMWS During your visit today, we recorded the following information about you: Temperature Pulse Respiration Blood pressure 98.4 degrees 73/minute 16/minute 108/76 Weight 70.3 kg Bailey Zhang) 11/24/2017 3:57 PM Signed CC Patient presents with: Recheck: 1 month F/U Headache: x 3 weeks HPI Larry Doshi is a 42 year old female who presents to the office for blood pressure. Her visit today is for follow-up. Patient was last seen for this approximately 1 month ago. Recent medication adjustments: Yes, newly diagnosed. Started on Ziac. Home BP's: does check BP's away from this office with average BP's in the 150's over 110's range, last week but has not checked since then. Symptoms referable to elevated blood pressure (headache, chest pain, palpitations, dyspnea, peripheral edema, fatigue, blurred vision): No but has been having headaches. Diagnosed with sinus infection yesterday, on Augmentin less than 24 hours. BP medications: Patient denies any side effects of her medication(s) and is compliant with their regimen. Last 4 Encounter BP Readings: Date: BP: 11/24/2017 108/76 11/23/2017 110/84 11/11/2017 112/68 11/04/2017 120/79[ (from Extended Vitals)[ Last 3 Encounter Wt Readings: Date: Wt: 11/24/2017 70.3 kg (155 lb) 11/23/2017 69.2 kg (152 lb 9.6 oz) 11/11/2017 69.4 kg (153 lb) REVIEW OF SYSTEMS See HPI PAST MEDICAL HISTORY Diagnosis Date - Cervical intraepithelial neoplasia 2005 - Closed C7 fracture (HCC) 06/16/2016 - Closed fracture of cervical vertebra (HCC) 09/25/2016 - Gastritis - GERD (gastroesophageal reflux disease) 12/11/2011 - Hidradenitis suppurativa 12/11/2011 - Lumbago 12/11/2011 - Spondylolisthesis 01/01/2012 - Tobacco abuse - Traumatic compression fracture of T2 thoracic vertebra (HCC) 06/16/2016 PAST SURGICAL HISTORY Procedure Laterality Date - CERVIX UTERI CONIZA LP ELCTRO EXCI 2005 LEEP-Cervix - EGD W/O OR W/BRUSH/WASH 2009 EGD, Dr. Richardson - EGD W/O OR W/BRUSH/WASH 01/05/15 EGD - LIGATE FALLOPIAN TUBE 2006 Tubal ligation - VAGINAL HYSTERECTOMY Hysterectomy, vaginal ALLERGIES Bactrim [Sulfamethoxazole] MEDICATIONS amoxicillin-clavulanic acid (AUGMENTIN) 875-125 mg per tablet Take 1 tablet by mouth twice daily for 7 days. fluconazole (DIFLUCAN) 100 mg tablet Take 1 tablet by mouth once daily for 3 days. ondansetron orally disintegrating (ZOFRAN ODT) 4 mg disintegrating tablet Take 1 tablet by mouth every 6 hours as needed for Nausea/Vomiting. albuterol HFA (VENTOLIN HFA) 90 mcg/actuation inhaler Inhale 2 Puffs as instructed every 4 hours as needed for Wheezing/Shortness of Breath. bisoprolol-hydrochlorothiazide (ZIAC) 2.5-6.25 mg per tablet Take 1 tablet by mouth once daily. ketotifen fumarate (ZADITOR) 0.025 % (0.035 %) ophthalmic solution Use 1 Drop in both eyes twice daily. pantoprazole DR (PROTONIX) 40 mg tablet Take 1 tablet by mouth once daily. Take on empty stomach, 1/2 hr before meal. gabapentin (NEURONTIN) 600 mg tablet Take 600 mg by mouth three times daily. Per Dr. Salinas albuterol (PROVENTIL) 5 mg/mL nebu Inhale 0.5 mL as instructed one time only for 1 dose. 1 DOSE NOW - BACK OFFICE. PLACE 0.5 ML PER DROPPER AND 2.5 ML OF NORMAL SALINE INTO RESERVOIR. albuterol HFA (VENTOLIN HFA) 90 mcg/actuation inhaler Inhale 2 Puffs as instructed every 4 hours as needed for Wheezing/Shortness of Breath. FAMILY HISTORY Problem Relation Age of Onset - Diabetes Mother - Heart Mother arryhtmia - Cervical Cancer Mother - Diabetes Father [place] 2012, - Coronary Artery Disease Father - COPD Father - Hypertension Father - COPD Sister - Hypertension Sister - Hypertension Sister - None Sister Social History Substance Use Topics - Smoking status: Current Every Day Smoker Packs/day: 1.50 Years: 23.00 Types: Cigarettes - Smokeless tobacco: Never Used - Alcohol use 36.0 oz/week 24 Cans of Beer (12oz) per week PHYSICAL EXAM BP 108/76 Pulse 73 Temp 36.9 ?C (98.4 ?F) (Temporal Artery) Resp 16 Wt 70.3 kg (155 lb) SpO2 96% BMI 27.90 kg/m? General Appearance: well appearing, in no acute distress, alert Lungs: Lungs clear to auscultation. No wheezing, rhonchi, rales Heart: RRR without murmur, gallop, or rubs. No ectopy Ext: no edema in LE bilaterally, good distal pulses ASSESSMENT/PLAN: 1. Essential hypertension - ICD9: 401.9, ICD10: I10 (primary diagnosis) - good control - Continue current medication(s) - Recommend home blood pressure monitoring, to bring results in on next visit - Recheck in 2 months, sooner should new symptoms or problems arise. - Goal of BP <140/90 2. Persistent headaches - ICD9: 784.0, ICD10: R51 Likely due to sinus infection. Follow-up in one week if no improvement or sooner if worsening 3. Hematemesis with nausea - ICD9: 578.0, 787.02, ICD10: K92.0 Referred to GI in ER for vomiting blood, doctor was not covered by insurance so she needs new referral. - CONSULT TO GASTROENTEROLOGY Prescription instructions reviewed with patient as applicable. Potential red flag symptoms discussed with the patient. Reviewed appropriate action plan to take if red flag symptoms occur. Patient agreeable to treatment plan Bailey Zhang APRN.Bailey Griggs (Senior Behavioral Scientist) 11/24/2017 3:21 PM Signed Follow-up in one week if no improvement in headaches To ER or call 911 for sudden onset severe headache, vomiting that won't stop, high fever, passing out Referring Provider: DONALD HENDERSON [[id number]] Allergies As of Date: 11/24/2017 Noted Allergy Reaction BACTRIM (SULFAMETHOXAZOLE) 12/13/2011 2 - Rash Date Reviewed: 11/24/2017 Reviewed by: Gisele Jennings Cma - Fully Assessed Reason for Visit: Recheck [92] Cmt: 1 month F/U Headache [52] Cmt: x 3 weeks Reason For Visit History Recorded Primary Visit Diagnosis:Essential hypertension [I10] Other Visit Diagnoses:Persistent headaches [R51] Hematemesis with nausea [K92.0] Order(s):CONSULT TO GASTROENTEROLOGY [9022] Order #: [id number]: 1 Prescriptions as of 11/24/2017 Sig: AMOXICILLIN 875 MG-POTASSIUM * Take 1 tablet by mouth twice * FLUCONAZOLE 100 MG TABLET Take 1 tablet by mouth once d* ONDANSETRON 4 MG DISINTEGRATI* Take 1 tablet by mouth every * ALBUTEROL SULFATE HFA 90 MCG/* Inhale 2 Puffs as instructed * BISOPROLOL 2.5 MG-HYDROCHLORO* Take 1 tablet by mouth once d* KETOTIFEN 0.025 % (0.035 %) E* Use 1 Drop in both eyes twice* PANTOPRAZOLE 40 MG TABLET,DEL* Take 1 tablet by mouth once d* GABAPENTIN 600 MG TABLET Take 600 mg by mouth three ti* ALBUTEROL SULFATE CONCENTRATE* Inhale 0.5 mL as instructed o* ALBUTEROL SULFATE HFA 90 MCG/* Inhale 2 Puffs as instructed * Problem List As Of Date 11/24/2017 Noted Resolved Lumbago [M54.5] INVALID FOR* GERD (gastroesophageal reflux disease) [K21.9] INVALID FOR* Hidradenitis suppurativa [L73.2] INVALID FOR* Spondylolisthesis [M43.10] INVALID FOR*09/23/2017 Tobacco abuse [Z72.0] INVALID FOR*09/23/2017 PONV (postoperative nausea and vomiting) [R11.2*INVALID FOR*08/21/2016 Esophageal reflux [K21.9] INVALID FOR*01/05/2015 Neck pain [M54.2] INVALID FOR*09/23/2017 Closed fracture of cervical vertebra (HCC) [S12*INVALID FOR*09/23/2017 Tobacco use disorder [F17.200] INVALID FOR* Neck pain, chronic [M54.2, G89.29] INVALID FOR* Other instructions from your clinician: Follow-up in one week if no improvement in headaches To ER or call 911 for sudden onset severe headache, vomiting that won't stop, high fever, passing out Encounter Status:Closed by BAILEY ZHANG CNP on 11/24/17 PROGRESS Observed: 11/23/2017 Status: COMPLETED Source: [place] 3:14 PM [facility] HNO ID: [id number] Author: Bailey Zhang (Senior Behavioral Scientist) Service: (none) Author Type: Nurse Practitioner Type: Progress Notes Filed: 11/23/2017 3:53 PM Note Text: CC: Patient presents with: Chest Congestion: with H/A x 3 week with swollen mouth x 1 day HPI: Larry Doshi is a 42 year old female who presents to the office with complaint of respiratory and mouth symptoms. Initially seen in urgent care on 11/11 with 3 day history of flu like symptoms, cough, wheezing, headache. Diagnosed with viral URI and treated with Albuterol inhaler for prn use and Prednisone. Patient states symptoms got better except for cough and fatigue. Then two days ago developed swelling in mouth and pain, noticed cheeks have white film on them. Symptoms are worsening Other associated symptoms includes nasal congestion and facial pain/pressure. Denies fever, wheezing and dyspnea. Also denies dysphagia and sore throat. Treatments tried include nothing so far. History of asthma, frequent episodes of bronchitis, chronic bronchitis, bronchiectasis or COPD: No Seasonal/environmental allergies: No The ROS is otherwise negative. The patient's pmh, medications, allergies, and past visits are reviewed. PHYSICAL EXAM: BP 110/84 (BP Site: Left Arm, BP Position: Sitting, BP Cuff Size: Regular Adult) Pulse 92 Temp 37.3 ?C (99.2 ?F) (Left Tympanic) Resp 16 Wt 69.2 kg (152 lb 9.6 oz) SpO2 98% BMI 27.47 kg/m? General appearance: tired/ill appearing, in no acute distress Head: Normocephalic Eyes: conjunctiva pink and moist, no icterus, sclera white, non-injected Ears: Right ear: External ear/canal- Normal, TM - clear with good landmarks. Left ear: External ear/canal- Normal, TM - clear with good landmarks Nose: mucosa erythematous and swollen, sinus tenderness over maxillary sinuses bilateral. Oropharynx:No erythema, exudates or tonsillar hypertrophy. Buccal mucosa swollen, thin white film covering mucosa. Tongue normal. Neck:supple and no adenopathy Heart: Negative. RRR without obvious murmur, gallop, or rubs. No ectopy. Lungs: clear to auscultation, without rales or wheeze, good air exchange ASSESSMENT/PLAN: 1. Acute non-recurrent sinusitis, unspecified location - ICD9: 461.9, ICD10: J01.90 (primary diagnosis) - Will begin treatment with Augmentin 875 mg PO BID for 7 days - Supportive care with plenty of fluids, rest, and analgesia prn. - Follow up in 3-5 days if symptoms persist or worsen. 2. Oral thrush - ICD9: 112.0, ICD10: B37.0 Symptoms and exam findings consistent with thrush, likely due to Prednisone Start Diflucan, see orders Follow-up as above Prescription instructions reviewed with patient as applicable. Potential red flag symptoms discussed with the patient. Reviewed appropriate action plan to take if red flag symptoms occur. Patient agreeable to treatment plan. Bailey Zhang APRN.SHAHNAZ CNOV Observed: 11/23/2017 Status: COMPLETED Source: [place] 3:00 PM [facility] REPOSITORY Office Visit (WSTR) LARRY DOSHI ([id number]) 1975 F [facility] Date Time Provider Department 11/23/17 3:00 PM BAILEY ZHANG (SHAHNAZ) WSTR During your visit today, we recorded the following information about you: Temperature Pulse Respiration Blood pressure 99.2 degrees 92/minute 16/minute 110/84 Weight 69.2 kg Bailey Zhang (Shahnaz) 11/23/2017 3:53 PM Signed CC: Patient presents with: Chest Congestion: with H/A x 3 week with swollen mouth x 1 day HPI: Larry Doshi is a 42 year old female who presents to the office with complaint of respiratory and mouth symptoms. Initially seen in urgent care on 11/11 with 3 day history of flu like symptoms, cough, wheezing, headache. Diagnosed with viral URI and treated with Albuterol inhaler for prn use and Prednisone. Patient states symptoms got better except for cough and fatigue. Then two days ago developed swelling in mouth and pain, noticed cheeks have white film on them. Symptoms are worsening Other associated symptoms includes nasal congestion and facial pain/pressure. Denies fever, wheezing and dyspnea. Also denies dysphagia and sore throat. Treatments tried include nothing so far. History of asthma, frequent episodes of bronchitis, chronic bronchitis, bronchiectasis or COPD: No Seasonal/environmental allergies: No The ROS is otherwise negative. The patient's pmh, medications, allergies, and past visits are reviewed. PHYSICAL EXAM: BP 110/84 (BP Site: Left Arm, BP Position: Sitting, BP Cuff Size: Regular Adult) Pulse 92 Temp 37.3 ?C (99.2 ?F) (Left Tympanic) Resp 16 Wt 69.2 kg (152 lb 9.6 oz) SpO2 98% BMI 27.47 kg/m? General appearance: tired/ill appearing, in no acute distress Head: Normocephalic Eyes: conjunctiva pink and moist, no icterus, sclera white, non-injected Ears: Right ear: External ear/canal- Normal, TM - clear with good landmarks. Left ear: External ear/canal- Normal, TM - clear with good landmarks Nose: mucosa erythematous and swollen, sinus tenderness over maxillary sinuses bilateral. Oropharynx:No erythema, exudates or tonsillar hypertrophy. Buccal mucosa swollen, thin white film covering mucosa. Tongue normal. Neck:supple and no adenopathy Heart: Negative. RRR without obvious murmur, gallop, or rubs. No ectopy. Lungs: clear to auscultation, without rales or wheeze, good air exchange ASSESSMENT/PLAN: 1. Acute non-recurrent sinusitis, unspecified location - ICD9: 461.9, ICD10: J01.90 (primary diagnosis) - Will begin treatment with Augmentin 875 mg PO BID for 7 days - Supportive care with plenty of fluids, rest, and analgesia prn. - Follow up in 3-5 days if symptoms persist or worsen. 2. Oral thrush - ICD9: 112.0, ICD10: B37.0 Symptoms and exam findings consistent with thrush, likely due to Prednisone Start Diflucan, see orders Follow-up as above Prescription instructions reviewed with patient as applicable. Potential red flag symptoms discussed with the patient. Reviewed appropriate action plan to take if red flag symptoms occur. Patient agreeable to treatment plan. Bailey Zhang APRN.COMPLETIONS MANAGER Referring Provider: SELF [[id number]] Allergies As of Date: 11/23/2017 Noted Allergy Reaction BACTRIM (SULFAMETHOXAZOLE) 12/13/2011 2 - Rash Date Reviewed: 11/23/2017 Reviewed by: Chantelle Rothman Ma - Fully Assessed Reason for Visit: Chest Congestion [236] Cmt: with H/A x 3 week with swollen mouth x 1 day Primary Visit Diagnosis:Acute non-recurrent sinusitis, unspecified location [J01.90] Other Visit Diagnosis:Oral thrush [B37.0] Order(s):amoxicillin-clavulanic acid (AUGMENTIN) 875-125 mg per tabletTake 1 tablet by mouth twice daily for 7 days.Disp: 14 tabletRfl: 0 fluconazole (DIFLUCAN) 100 mg tabletTake 1 tablet by mouth once daily for 3 days.Disp: 3 tabletRfl: 0 Prescriptions as of 11/23/2017 Sig: ONDANSETRON 4 MG DISINTEGRATI* Take 1 tablet by mouth every * ALBUTEROL SULFATE HFA 90 MCG/* Inhale 2 Puffs as instructed * BISOPROLOL 2.5 MG-HYDROCHLORO* Take 1 tablet by mouth once d* KETOTIFEN 0.025 % (0.035 %) E* Use 1 Drop in both eyes twice* PANTOPRAZOLE 40 MG TABLET,DEL* Take 1 tablet by mouth once d* GABAPENTIN 600 MG TABLET Take 600 mg by mouth three ti* ALBUTEROL SULFATE HFA 90 MCG/* Inhale 2 Puffs as instructed * AMOXICILLIN 875 MG-POTASSIUM * Take 1 tablet by mouth twice * FLUCONAZOLE 100 MG TABLET Take 1 tablet by mouth once d* ALBUTEROL SULFATE CONCENTRATE* Inhale 0.5 mL as instructed o* Problem List As Of Date 11/23/2017 Noted Resolved Lumbago [M54.5] INVALID FOR* GERD (gastroesophageal reflux disease) [K21.9] INVALID FOR* Hidradenitis suppurativa [L73.2] INVALID FOR* Spondylolisthesis [M43.10] INVALID FOR*09/23/2017 Tobacco abuse [Z72.0] INVALID FOR*09/23/2017 PONV (postoperative nausea and vomiting) [R11.2*INVALID FOR*08/21/2016 Esophageal reflux [K21.9] INVALID FOR*01/05/2015 Neck pain [M54.2] INVALID FOR*09/23/2017 Closed fracture of cervical vertebra (HCC) [S12*INVALID FOR*09/23/2017 Tobacco use disorder [F17.200] INVALID FOR* Neck pain, chronic [M54.2, G89.29] INVALID FOR* Prescriptions ordered this encounter Disp Refills Start End AMOXICILLIN 875 MG-POTASSIUM CLAVULA* 14 t* 0 11/23/2017 11/30/2017 Route: ORAL Sig: Take 1 tablet by mouth twice daily for 7 days. FLUCONAZOLE 100 MG TABLET 3 ta* 0 11/23/2017 11/26/2017 Route: ORAL Sig: Take 1 tablet by mouth once daily for 3 days. Encounter Status:Closed by BAILEY ZHANG CNP on 11/23/17 PROGRESS Observed: 11/11/2017 Status: COMPLETED Source: [place] 12:14 PM [facility] REPOSITORY O ID: [id number] Author: Brie Contreras) DianaBrayan Service: (none) Author Type: Nurse Practitioner Type: Progress Notes Filed: 11/11/2017 1:25 PM Note Text: Subjective HPI Larry Doshi is a 42 year old female who presents with headache and fever, cough and congestion for the last 3 days. She rates her headache pain a 10/10. She started vomiting last night. She has vomited 5 times since last night, last episode was 45 minutes ago. She has taken Excedrin and ibuprofen at home. Daughter is ill with same symptoms. Review of Systems Constitutional: Positive for chills and fever. HENT: Positive for congestion and sore throat. Respiratory: Positive for cough. Gastrointestinal: Positive for nausea and vomiting. Negative for abdominal pain. Musculoskeletal: Positive for neck pain. Skin: Negative. Negative for rash. Neurological: Positive for headaches. BP 112/68 Pulse 96 Temp 38.7 ?C (101.6 ?F) (Tympanic) Resp 18 Wt 69.4 kg (153 lb) BMI 27.54 kg/m2 PAST MEDICAL HISTORY Diagnosis Date - Cervical intraepithelial neoplasia 2005 - Closed C7 fracture ([facility]) 06/16/2016 - Closed fracture of cervical vertebra ([facility]) 09/25/2016 - Gastritis - GERD (gastroesophageal reflux disease) 12/11/2011 - Hidradenitis suppurativa 12/11/2011 - Lumbago 12/11/2011 - Spondylolisthesis 01/01/2012 - Tobacco abuse - Traumatic compression fracture of T2 thoracic vertebra ([facility]) 06/16/2016 PAST SURGICAL HISTORY Procedure Laterality Date - CERVIX UTERI CONIZA LP ELCTRO EXCI 2005 LEEP-Cervix - EGD W/O OR W/BRUSH/WASH 2009 EGD, Dr. Richardson - EGD W/O OR W/BRUSH/WASH 01/05/15 EGD - LIGATE FALLOPIAN TUBE 2006 Tubal ligation - VAGINAL HYSTERECTOMY Hysterectomy, vaginal ALLERGIES Bactrim [Sulfamethoxazole] MEDICATIONS bisoprolol-hydrochlorothiazide (ZIAC) 2.5-6.25 mg per tablet Take 1 tablet by mouth once daily. ketotifen fumarate (ZADITOR) 0.025 % (0.035 %) ophthalmic solution Use 1 Drop in both eyes twice daily. pantoprazole DR (PROTONIX) 40 mg tablet Take 1 tablet by mouth once daily. Take on empty stomach, 1/2 hr before meal. gabapentin (NEURONTIN) 600 mg tablet Take 600 mg by mouth three times daily. Per Dr. Salinas albuterol HFA (VENTOLIN HFA) 90 mcg/actuation inhaler Inhale 2 Puffs as instructed every 4 hours as needed for Wheezing/Shortness of Breath. FAMILY HISTORY Problem Relation Age of Onset - Diabetes Mother - Heart Mother arryhtmia - Cervical Cancer Mother - Diabetes Father [place] 2012, - Coronary Artery Disease Father - COPD Father - Hypertension Father - COPD Sister - Hypertension Sister - Hypertension Sister - None Sister Social History Substance Use Topics - Smoking status: Current Every Day Smoker Packs/day: 1.50 Years: 23.00 Types: Cigarettes - Smokeless tobacco: Never Used - Alcohol use 36.0 oz/week 24 Cans of Beer (12oz) per week Objective Physical Exam Constitutional: She is well-developed, well-nourished, and in no distress. HENT: Head: Normocephalic. Right Ear: Tympanic membrane, external ear and ear canal normal. Left Ear: Tympanic membrane, external ear and ear canal normal. Nose: Nose normal. No rhinorrhea. Mouth/Throat: Uvula is midline, oropharynx is clear and moist and mucous membranes are normal. No posterior oropharyngeal edema or posterior oropharyngeal erythema. Eyes: Conjunctivae are normal. Right eye exhibits no discharge. Left eye exhibits no discharge. Neck: Neck supple. Cardiovascular: Normal rate, regular rhythm and normal heart sounds. Pulmonary/Chest: Effort normal. She has wheezes. Lymphadenopathy: She has no cervical adenopathy. Neurological: She is alert. Skin: Skin is warm and dry. No rash noted. No erythema. Nursing note and vitals reviewed. ASSESSMENT/PLAN: 1. Flu-like symptoms - ICD9: 780.99, ICD10: R68.89 (primary diagnosis) - outside of treatment window for Tamiflu - discussed course and contagiousness, supportive measures 2. Nausea - ICD9: 787.02, ICD10: R11.0 - ONDANSETRON 4 MG DISINTEGRATING TABLET 3. Viral URI with cough - ICD9: 465.9, ICD10: J06.9, B97.89 - Discussed viral etiology and rationale for treatment. - Symptomatic treatment with prn analgesia - Supportive care with fluids and rest - ALBUTEROL SULFATE HFA 90 MCG/ACTUATION AEROSOL INHALER - PREDNISONE 20 MG TABLET 4. Headache, unspecified headache type - ICD9: 784.0, ICD10: R51 - if any worsening of pain, or development of rash, mental status change, go to ER for evaluation. - Follow-up with your PCP in 3-5 days if symptoms have not improved or sooner if symptoms worsen - Discussed red flags and need for immediate medical evaluation if any occur. - Discussed supportive care treatment with fluids, rest and analgesia. - Discussed expected course of illness Brie Ying APRN.COMPLETIONS MANAGER CNOV Observed: 11/11/2017 Status: COMPLETED Source: [place] 12:00 PM [facility] REPOSITORY Office Visit (UCWSTR) LARRY DOSHI ([id number]) 1975 F ARNIE Date Time Provider Department 11/11/17 12:00 PM BRIE YING ([facility]) [facility] During your visit today, we recorded the following information about you: Temperature Pulse Respiration Blood pressure 101.6 degrees 96/minute 18/minute 112/68 Weight 69.4 kg Brie Ying APRN.SHAHNAZ 11/11/2017 1:25 PM Signed Subjective HPI Larry Doshi is a 42 year old female who presents with headache and fever, cough and congestion for the last 3 days. She rates her headache pain a 10/10. She started vomiting last night. She has vomited 5 times since last night, last episode was 45 minutes ago. She has taken Excedrin and ibuprofen at home. Daughter is ill with same symptoms. Review of Systems Constitutional: Positive for chills and fever. HENT: Positive for congestion and sore throat. Respiratory: Positive for cough. Gastrointestinal: Positive for nausea and vomiting. Negative for abdominal pain. Musculoskeletal: Positive for neck pain. Skin: Negative. Negative for rash. Neurological: Positive for headaches. BP 112/68 Pulse 96 Temp 38.7 ?C (101.6 ?F) (Tympanic) Resp 18 Wt 69.4 kg (153 lb) BMI 27.54 kg/m2 PAST MEDICAL HISTORY Diagnosis Date - Cervical intraepithelial neoplasia 2006 - Closed C7 fracture (HCC) 06/16/2016 - Closed fracture of cervical vertebra (HCC) 09/25/2016 - Gastritis - GERD (gastroesophageal reflux disease) 12/11/2011 - Hidradenitis suppurativa 12/11/2011 - Lumbago 12/11/2011 - Spondylolisthesis 01/01/2012 - Tobacco abuse - Traumatic compression fracture of T2 thoracic vertebra (HCC) 06/16/2016 PAST SURGICAL HISTORY Procedure Laterality Date - CERVIX UTERI CONIZA LP ELCTRO EXCI 2005 LEEP-Cervix - EGD W/O OR W/BRUSH/WASH 2009 EGD, Dr. Richardson - EGD W/O OR W/BRUSH/WASH 01/05/15 EGD - LIGATE FALLOPIAN TUBE 2006 Tubal ligation - VAGINAL HYSTERECTOMY Hysterectomy, vaginal ALLERGIES Bactrim [Sulfamethoxazole] MEDICATIONS bisoprolol-hydrochlorothiazide (ZIAC) 2.5-6.25 mg per tablet Take 1 tablet by mouth once daily. ketotifen fumarate (ZADITOR) 0.025 % (0.035 %) ophthalmic solution Use 1 Drop in both eyes twice daily. pantoprazole DR (PROTONIX) 40 mg tablet Take 1 tablet by mouth once daily. Take on empty stomach, 1/2 hr before meal. gabapentin (NEURONTIN) 600 mg tablet Take 600 mg by mouth three times daily. Per Dr. Salinas albuterol HFA (VENTOLIN HFA) 90 mcg/actuation inhaler Inhale 2 Puffs as instructed every 4 hours as needed for Wheezing/Shortness of Breath. FAMILY HISTORY Problem Relation Age of Onset - Diabetes Mother - Heart Mother arryhtmia - Cervical Cancer Mother - Diabetes Father [place] 2012, - Coronary Artery Disease Father - COPD Father - Hypertension Father - COPD Sister - Hypertension Sister - Hypertension Sister - None Sister Social History Substance Use Topics - Smoking status: Current Every Day Smoker Packs/day: 1.50 Years: 23.00 Types: Cigarettes - Smokeless tobacco: Never Used - Alcohol use 36.0 oz/week 24 Cans of Beer (12oz) per week Objective Physical Exam Constitutional: She is well-developed, well-nourished, and in no distress. HENT: Head: Normocephalic. Right Ear: Tympanic membrane, external ear and ear canal normal. Left Ear: Tympanic membrane, external ear and ear canal normal. Nose: Nose normal. No rhinorrhea. Mouth/Throat: Uvula is midline, oropharynx is clear and moist and mucous membranes are normal. No posterior oropharyngeal edema or posterior oropharyngeal erythema. Eyes: Conjunctivae are normal. Right eye exhibits no discharge. Left eye exhibits no discharge. Neck: Neck supple. Cardiovascular: Normal rate, regular rhythm and normal heart sounds. Pulmonary/Chest: Effort normal. She has wheezes. Lymphadenopathy: She has no cervical adenopathy. Neurological: She is alert. Skin: Skin is warm and dry. No rash noted. No erythema. Nursing note and vitals reviewed. ASSESSMENT/PLAN: 1. Flu-like symptoms - ICD9: 780.99, ICD10: R68.89 (primary diagnosis) - outside of treatment window for Tamiflu - discussed course and contagiousness, supportive measures 2. Nausea - ICD9: 787.02, ICD10: R11.0 - ONDANSETRON 4 MG DISINTEGRATING TABLET 3. Viral URI with cough - ICD9: 465.9, ICD10: J06.9, B97.89 - Discussed viral etiology and rationale for treatment. - Symptomatic treatment with prn analgesia - Supportive care with fluids and rest - ALBUTEROL SULFATE HFA 90 MCG/ACTUATION AEROSOL INHALER - PREDNISONE 20 MG TABLET 4. Headache, unspecified headache type - ICD9: 784.0, ICD10: R51 - if any worsening of pain, or development of rash, mental status change, go to ER for evaluation. - Follow-up with your PCP in 3-5 days if symptoms have not improved or sooner if symptoms worsen - Discussed red flags and need for immediate medical evaluation if any occur. - Discussed supportive care treatment with fluids, rest and analgesia. - Discussed expected course of illness Brie Ying APRN.COMPLETIONS MANAGER Referring Provider: SELF [[id number]] Allergies As of Date: 11/11/2017 Noted Allergy Reaction BACTRIM (SULFAMETHOXAZOLE) 12/13/2011 2 - Rash Date Reviewed: 11/11/2017 Reviewed by: Brie ([facility]) Stepan - Fully Assessed Reason for Visit: Nausea AND Vomiting [237] Cmt: fever and headache x 3 days Primary Visit Diagnosis:Flu-like symptoms [R68.89] Other Visit Diagnoses:Nausea [R11.0] Viral URI with cough [J06.9, B97.89] Headache, unspecified headache type [R51] Order(s):albuterol (PROVENTIL) 5 mg/mL nebuInhale 0.5 mL as instructed one time only for 1 dose. 1 DOSE NOW - BACK OFFICE. PLACE 0.5 ML PER DROPPER AND 2.5 ML OF NORMAL SALINE INTO RESERVOIR.Disp: 1 mLRfl: 0 ondansetron orally disintegrating (ZOFRAN ODT) 4 mg disintegrating tabletTake 1 tablet by mouth every 6 hours as needed for Nausea/Vomiting.Disp: 12 tabletRfl: 0 albuterol HFA (VENTOLIN HFA) 90 mcg/actuation inhalerInhale 2 Puffs as instructed every 4 hours as needed for Wheezing/Shortness of Breath.Disp: 1 InhalerRfl: 0 predniSONE (DELTASONE) 20 mg tabletTake 2 tablets by mouth once daily for 5 days.Disp: 10 tabletRfl: 0 Prescriptions as of 11/11/2017 Sig: BISOPROLOL 2.5 MG-HYDROCHLORO* Take 1 tablet by mouth once d* KETOTIFEN 0.025 % (0.035 %) E* Use 1 Drop in both eyes twice* PANTOPRAZOLE 40 MG TABLET,DEL* Take 1 tablet by mouth once d* GABAPENTIN 600 MG TABLET Take 600 mg by mouth three ti* ALBUTEROL SULFATE HFA 90 MCG/* Inhale 2 Puffs as instructed * ALBUTEROL SULFATE CONCENTRATE* Inhale 0.5 mL as instructed o* ONDANSETRON 4 MG DISINTEGRATI* Take 1 tablet by mouth every * ALBUTEROL SULFATE HFA 90 MCG/* Inhale 2 Puffs as instructed * PREDNISONE 20 MG TABLET Take 2 tablets by mouth once * Medication notes this encounter ALBUTEROL SULFATE CONCENTRATE 5 MG/ML(0.5 %) SOLUTION FOR NEBULIZATION >> Xuan Valdez Ma 11/11/2017 1:07 PM >> XUAN VALDEZ MA Nov 11, 2017 1:07 PM 2.5 solution aerosol treatment given per doctor's orders. Prior to treatment O2 Sat is 97%. Treatment completed. O2 sat is 99%. Tolerated well. Xuan Valdez Ma Problem List As Of Date 11/11/2017 Noted Resolved Lumbago [M54.5] INVALID FOR* GERD (gastroesophageal reflux disease) [K21.9] INVALID FOR* Hidradenitis suppurativa [L73.2] INVALID FOR* Spondylolisthesis [M43.10] INVALID FOR*09/23/2017 Tobacco abuse [Z72.0] INVALID FOR*09/23/2017 PONV (postoperative nausea and vomiting) [R11.2*INVALID FOR*08/21/2016 Esophageal reflux [K21.9] INVALID FOR*01/05/2015 Neck pain [M54.2] INVALID FOR*09/23/2017 Closed fracture of cervical vertebra (HCC) [S12*INVALID FOR*09/23/2017 Tobacco use disorder [F17.200] INVALID FOR* Neck pain, chronic [M54.2, G89.29] INVALID FOR* Prescriptions ordered this encounter Disp Refills Start End ALBUTEROL SULFATE CONCENTRATE 5 MG/M* 1 mL 0 11/11/2017 11/11/2017 Class: In Office Route: INHALATION Sig: Inhale 0.5 mL as instructed one time only for 1 dose. 1 DOSE NOW - BACK OFFICE. PLACE 0.5 ML PER DROPPER AND 2.5 ML OF NORMAL SALINE INTO RESERVOIR. ONDANSETRON 4 MG DISINTEGRATING TABL* 12 t* 0 11/11/2017 Route: ORAL Sig: Take 1 tablet by mouth every 6 hours as needed for Nausea/Vomiting. ALBUTEROL SULFATE HFA 90 MCG/ACTUATI* 1 In* 0 11/11/2017 Route: INHALATION Sig: Inhale 2 Puffs as instructed every 4 hours as needed for Wheezing/Shortness of Breath. PREDNISONE 20 MG TABLET 10 t* 0 11/11/2017 11/16/2017 Route: ORAL Sig: Take 2 tablets by mouth once daily for 5 days. Letter Text Brie Ying APRN.[facility] Urgent Care [address] [facility] [address] Dept: [phone] 11/11/2017 Larry Doshi [address] [facility] [address] [facility] [address] To Whom it May Concern: This is to certify that Larry Doshi was seen at our office for medical care on 11/11/17. Larry may return to work when she has been fever free for 24 hours. . If you have any questions please feel free to call. Sincerely: Brie Ying APRN.COMPLETIONS MANAGER Encounter Status:Closed by BRIE YING on 11/11/17 EMERGENCY DEPARTMENT Observed: 11/04/2017 Status: F Source: [place] SUMMARY 5:23 PM [facility] REPOSITORY [facility] Medical Records Department [address] [place] [address] Emergency Department Summary 11/04/17 0942 MR#: [id number] Acct: [id number] Name: DOSHIALLISON OQUENDO Rep #: [id number] : 1975 42 From: Az Thomas MD PCP: Donald Henderson MD Status: DEP ER - ER Visit Summary Date of Service: 11/04/17 Chief Complaint: Hematemesis History of Present Illness: The patient is a 42 F presenting for evaluation due to concern for hematemesis. Patient states that this morning she woke up and felt nauseous. Patient states that she vomited and there were small flecks of blood in the toilet. She states that it was no more than a spoonful. Patient states that following that she had 2 other episodes of emesis where she felt that potentially she was vomiting clotted blood. She does endorse that she has some mild epigastric pain. She denies that she has been having any change in color of her stools or dark tarry stools. Patient does have a history of frequent alcohol use, up to 6 beers per day. She states that she has had a upper endoscopy 2 years ago without any evidence of GI bleed or ulcer. She is not on any sort of anticoagulants. Patient does take Protonix and Carafate. Physical Examination: Vital signs are within normal limits, patient is afebrile. General: Patient is well-nourished well-developed and in no acute distress. Head: Normocephalic, atraumatic Eyes: Pupils equal round and reactive bilaterally, extra occular motion intact bialterally ENT: Moist mucous membranes, no evidence of blood in the posterior pharynx Neck: Supple, no lymphadenopathy, no JVD, no meningismus CVS: Heart regular rate and rhythm, no murmurs, rubs or gallops, radial pulses 2+ bilaterally Resp: Respirations nondistressed, lung sounds clear bilaterally, no evidence of crepitus on palpation Abdomen: Soft, nontender, nondistended, no palpable masses, normal bowel sounds Back: Nontender Extremities: Nontender, atraumatic, active full range of motion, no peripheral edema Skin: warm, no rashes, no petechia Neuro: Alert and oriented x 4, CN 2-12 intact, no lateralizing neurological defecits Psyc: Normal affect Test Results: CBC demonstrates hemoglobin of 15.1, chemistry, liver, and coagulation panels are within normal limits Emergency Department Course and Treatment: Patient presented due to concern for hematemesis. Patient was evaluated for stability with lab tests, she is found to have a normal stable hemoglobin, and a normal liver panel and coagulation panel. She has normal vital signs, no tachycardia, and through a 90 minute of observation in the emergency department she did not have any further episodes of hematemesis. She was treated with a GI cocktail and Zofran did have some symptomatic improvement. Patient states that she drinks about 6 beers a day, but she does state that intermittently she will go a couple of days without drinking. I do not believe that the patient would be at risk for alcohol withdrawal, but I believe she likely has an element of some alcoholic gastritis as she frequently drinks 6 beers a day. Patient was recommended to discontinue her alcohol use, and to continue taking her Protonix and Carafate. She will be given follow-up information with GI. She was given signs and symptoms for which to return. Disposition: Discharge Impression: 1. Alcoholic gastritis This note was generated with [employer] dictation software. It may contain incorrect words, spelling, and punctuation that were not noted in review of the chart prior to signing ED Disposition - Plan for ED Patient: Disposition: Home or Assisted Living Chief Complaint: GI Bleed Diagnosis: Gastritis Instructions: ED PUD Vs Gastritis Referrals: Jeffrey Richardson MD [STAFF PHYSICIAN] - 1-2 Weeks What to do if you have Problems For any increased pain, shortness of breath, bleeding, nausea or vomiting, chest pain, or any unexpected problems, contact your Primary Care Provider. Call [facility] ([phone]) or report to the closest Emergency Room. Call 911 if necessary. 11/04/17 1723 <Electronically signed by Az Thomas MD> Date Az Wakefieldigner Signature (If Indicated): Date CC: Donald Henderson MD 12 LEAD ELECTROCARDIOGRAM Observed: 11/04/2017 Status: F Source: [place] 1:49 PM [facility] REPOSITORY [facility] Cardiovascular Services [address] [place] [address] 12 Lead EKG 10/31/17 1241 MR#: [id number] Acct: [id number] Name: ALLISON DOSHI Rep #: [id number] : 1975 42 From: Stevo Nino MD Attending Dr: Status: DEP ER Ordering Dr: Ish Mcdonald MD Date: 10/31/17 Location: ED Sex: F C Admitted: Test Reason : CP Blood Pressure : / mmHG Vent. Rate : 087 BPM Atrial Rate : 087 BPM P-R Int : 110 ms QRS Dur : 078 ms QT Int : 356 ms P-R-T Axes : 042 043 055 degrees QTc Int : 428 ms Sinus rhythm with short NJ Otherwise normal ECG Confirmed by AMBERLY COTA, STEVO ([id number]), technical writer and editor JESSICA SOTELO ([id number]) on 11/04/2017 1:49:22 PM Referred By: CLAUDINE/FARHAN Confirmed By:STEVO NINO MD 11/04/17 1349 Date Stevo Nino MD CC: Ish Mcdonald MD; Donald Henderson MD Signed CBC W/DIFF, AUTOMATED Collected: 11/04/2017 Status: F Source: [place] 9:45 AM [facility] REPOSITORY TYPE CODE TESTS RESULT OUT OF RANGE REFERENCE UNITS LAB L100.1000 4.4-11.0 K/mm3 Normal WBC 6.7 LAB L100.1200 4.2-5.4 M/mm3 Normal RBC 4.65 LAB L100.1300 12.0-15.0 g/dl High HGB 15.1 LAB L100.1400 37-47 % Normal HCT 44.0 LAB L100.1500 81-99 fL Normal MCV 94.6 LAB L100.1600 27.0-32.0 pg High MCH 32.5 LAB L100.1700 32-36 g/gl Normal MCHC 34.3 LAB L100.1810 11.6-14.6 % Normal RDW CV 12.1 LAB L100.1820 35.1-43.9 fl Normal RDW SD 41.5 LAB L100.1900 150-450 K/mm3 Normal PLT 198 LAB L100.2000 6.2-12.0 fl Normal MPV 10.3 LAB L100.2100 47-70 % Normal NEUT% 62.6 LAB L100.2200 19-41 % Normal LY% 26.5 LAB L100.2300 0-10 % Normal MONO% 7.5 LAB L100.2400 0-5 % Normal EO% 2.7 LAB L100.2500 0-1 % Normal BASO% 0.6 LAB L100.2550 0.0-0.9 % Normal IM GRAN % 0.100 Result Comment: IG% - Immature Granulocytes (promyelocytes, myelocytes and metamyelocytes) > 1% indicates that a LEFT SHIFT is Present. LAB L100.2620 2.0-7.7 X10 3/uL Normal Absolute Neut 4.2 LAB L100.2720 0.83-4.51 X10 3/ul Normal Absolute Lymph 1.78 Performed By: #### L100.0100 #### [facility] [address] [facility] [place], [place], [id number] PROTHROMBIN TIME W/INR Collected: 11/04/2017 Status: F Source: [place] 9:45 AM [facility] REPOSITORY TYPE CODE TESTS RESULT OUT OF RANGE REFERENCE UNITS LAB L300.4150 11.7-14.9 SECONDS Normal PROTIME 11.7 LAB L300.4200 Normal INR 0.9 Performed By: #### L300.3900, L300.4310 #### [facility] [address] [place], [place], [id number] PARTIAL THROMBOPLAST Collected: 11/04/2017 Status: F Source: [place] TIME 9:45 AM [facility] REPOSITORY TYPE CODE TESTS RESULT OUT OF RANGE REFERENCE UNITS LAB L300.4310 24.1-36.2 Seconds Normal PTT 28.8 Performed By: #### L300.3900, L300.4310 #### [facility] [address] [place], [place], [id number] COMPREHENSIVE METABOLIC Collected: 11/04/2017 Status: F Source: [place] 9:45 AM [facility] REPOSITORY TYPE CODE TESTS RESULT OUT OF RANGE REFERENCE UNITS LAB L501.0100 74-106 mg/dL Normal GLU 94 Result Comment: Please note revised GLUCOSE reference range effective 2017. LAB L501.1000 7-18 mg/dL Normal BUN 12 LAB L501.1100 0.55-1.02 mg/dL Normal CREAT,SERUM 0.79 Result Comment: The validity of the calculated GFR AND GFRAA in patients over 70 years has not been determined. Clinical correlation is essential. LAB L501.1110 >60 mL/min Normal EST GFR 85 Result Comment: Non- GFR Calc LAB L501.1115 >60 mL/min Normal EST GFR - AA 103 Result Comment: GFR Calc LAB L501.1255 ml/min Normal Estimated CRCL 70.72 LAB L501.1300 10-20 RATIO Normal BUN/CRE 15.3 LAB L501.1500 6.4-8. g/dL Normal 2 T PROT 7.8 LAB L501.1800 3.2-5. g/dL Normal 0 ALB 4.0 LAB L501.1950 2.2-4. g/dL Normal 2 GLOB 3.8 LAB L501.2000 0.9-2. RATIO Normal 4 A/G 1.1 LAB L501.2200 8.5-10 mg/dL Normal .1 CA 9.5 LAB L501.4100 15-37 U/L Low AST 14 LAB L501.4305 45-117 U/L Normal ALK P 67 LAB L501.4405 13-56 U/L Normal ALT 21 LAB L501.4600 0.20-1 mg/dL Normal .00 T BILI 0.50 LAB L501.5300 136-14 mmol/L Normal 5 NA 140 LAB L501.5600 3.5-5. mmol/L Normal 1 K 4.0 LAB L501.5900 98-107 mmol/L Normal CL 103 LAB L501.6100 21.0-3 mmol/L Normal 2.0 CO2 29.0 LAB L501.6200 5-15 Normal GAP 8 Performed By: #### L500.4050 #### [facility] [place], [address] PROGRESS Observed: 11/04/2017 Status: COMPLETED Source: [place] 8:14 AM [facility] REPOSITORY HNO ID: [id number] Author: Radha Contreras) Podlogar Service: (none) Author Type: Nurse Practitioner Type: Progress Notes Filed: 11/04/2017 2:53 PM Note Text: 11/04/2017 Patient presents with: ER F/U SUBJECTIVE: This is a 42 year old that is here today for Above Complaints. Went to ER on 10/31/2017 for left sided chest pain accompanied by a pounding heart, claminess, and SOB. Testing was performed which included EkG sinus at 87 with a short NJ interval of 78 and is otherwise normal. Troponin negative. Chem-7 is normal with glucose 73. CBC is normal. Chest x-ray is normal. She reported that she has had three episodes like this in 1 week that are not related to exertion and related they began when she started Wellbutrin 2 weeks prior. She was instructed to stop the Wellbutrin and follow-up with her PCP if not improving. Since ER visit she has stopped the Wellbutrin- 3 days ago. She has had a couple episodes since then were she has felt flushed, increased BP at home of 150's/90's, palpitations which precedes presyncope. She has sat down with these events and after some time feels better. She reports she has been eating and drinking without difficulty. Denies fever, weight loss, body aches, chills, SOB with exertion, dyspnea, coughing, wheezing, current chest pain and palpitations. She reports this morning of an episode of bright red vomiting followed by two more episodes of dark vomiting. She is positive for nausea and epigastric discomfort reported as an constant ache 2/10 on 1-10 pain scale. She is positive for Hx of GERD and admits to drinking 6-7 beers daily. Denies coughing, melena, hematochezia diarrhea, constipation, and hx of bleeding ulcers. Last EGD was on 01/05/2015 with results below: The next day felt not Findings: ? ? ?Savary-Sotelo Grade II (multiple lesions and folds, noncircumferential, ? ? ?with or without confluence) esophagitis with no bleeding was found 37 to ? ? ?40 cm from the incisors. Biopsies were taken with a cold forceps for ? ? ?histology. LES at 40cm. ? ? ?The entire examined stomach was normal. Biopsies were taken with a cold ? ? ?forceps for histology. Biopsies were taken with a cold forceps for ? ? ?Helicobacter pylori testing. ? ? ?The examined duodenum was normal. Impression: ? - Kelsy-Sotelo Grade II reflux esophagitis. Biopsied. ? - Normal stomach. Biopsied. ? - Normal examined duodenum. Recommendation: ? ? ? - Discharge patient to home (ambulatory). ? - Continue present medications. ? -?Return to primary care physician PRN. ? - Telephone GI clinic for pathology results in 2 weeks. Attending Participation: ? ? ?I personally performed the entire procedure. MD Keanu Bal MD 01/05/2015 9:44 AM This report has been signed electronically by Keanu Avila MD Number of Addenda: 0 Note Initiated On: 01/05/2015 9:26 AM Estimated Blood Loss: Estimated blood loss: none. Procedure Start: 9:37:22 AM Procedure End: 9:42:30 AM Last 5 BP Last 14 Encounter BP Readings: Date: BP: 11/04/2017 124/83[b/p true average[ 10/23/2017 141/100 10/05/2017 148/104 09/23/2017 132/92 08/07/2017 126/88 Repeat Blood Pressure BP Pulse HR Site Cuff Size Time Date 120/79 75 --- Left Arm Regular 08:45 AM 11/04/2017 125/83 74 --- Left Arm Regular 08:43 AM 11/04/2017 124/81 75 --- Left Arm Regular 08:42 AM 11/04/2017 123/86 77 --- Left Arm Regular 08:41 AM 11/04/2017 126/85 74 --- Left Arm Regular 08:40 AM 11/04/2017 127/88 77 --- Left Arm Regular 08:40 AM 11/04/2017 Orthostatic Vitals BP Pulse Position Site Cuff Size Time Date 146/102 83 Standing Right Arm --- 09:50 AM 11/04/2017 150/100 77 Sitting Right Arm Regular 09:50 AM 11/04/2017 146/100 74 Supine Right Arm Regular 09:49 AM 11/04/2017 PAST MEDICAL HISTORY Diagnosis Date - Cervical intraepithelial neoplasia 2006 - Closed C7 fracture (HCC) 06/16/2016 - Closed fracture of cervical vertebra (HCC) 09/25/2016 - Gastritis - GERD (gastroesophageal reflux disease) 12/11/2011 - Hidradenitis suppurativa 12/11/2011 - Lumbago 12/11/2011 - Spondylolisthesis 01/01/2012 - Tobacco abuse - Traumatic compression fracture of T2 thoracic vertebra (HCC) 06/16/2016 ALLERGIES Bactrim [Sulfamethoxazole] MEDICATIONS Current Outpatient Prescriptions: bisoprolol-hydrochlorothiazide (ZIAC) 2.5-6.25 mg per tablet Take 1 tablet by mouth once daily. ketotifen fumarate (ZADITOR) 0.025 % (0.035 %) ophthalmic solution Use 1 Drop in both eyes twice daily. pantoprazole DR (PROTONIX) 40 mg tablet Take 1 tablet by mouth once daily. Take on empty stomach, 1/2 hr before meal. gabapentin (NEURONTIN) 600 mg tablet Take 600 mg by mouth three times daily. Per Dr. Salinas buPROPion SR (WELLBUTRIN SR) 150 mg 12 hr tablet Take 1 tablet by mouth twice daily. albuterol HFA (VENTOLIN HFA) 90 mcg/actuation inhaler Inhale 2 Puffs as instructed every 4 hours as needed for Wheezing/Shortness of Breath. No current facility-administered medications for this visit. Medications and allergies reviewed by this provider. 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 OBJECTIVE: BP 128/78 (BP Site: Left Arm, BP Position: Sitting, BP Cuff Size: Large Adult) Pulse 60 Resp 16 Wt 71.3 kg (157 lb 1.3 oz) BMI 28.27 kg/m2. Vital signs reviewed by this provider. APPEARANCE Well appearing, alert, in no acute distress, well-hydrated, well nourished. EYES PERRLA, conjunctiva and sclera normal. NOSE/SINUS Nares normal. Septum midline. Mucosa normal. No drainage or sinus tenderness. THROAT normal, no erythema NECK Supple, no adenopathy; thyroid symmetric, normal size, no bruits HEART RRR with normal S1 and S2, no murmurs, no gallops, no JVD appreciated LUNG clear to auscultation ABDOMEN bowel sounds normoactive, no bruits, soft, non-tender, non-distended, without organomegaly or palpable masses EXTREMITIES Extremities normal, No deformities, No skin discoloration, No edema and Normal pulses bilaterally. ASSESSMENT/PLAN: 1. Palpitations - ICD9: 785.1, ICD10: R00.2 (primary diagnosis) - possibly related to anxiety vs unknown - no cardiac red flag exam findings - red flag symptoms discussed, patient verbalizes undeerstanding - HOLTER MONITOR 48 HOUR - follow-up pending results, to ER with red flag symtpoms 2. Hematemesis with nausea - ICD9: 578.0, 787.02, ICD10: K92.0 - concerning for active bleeding- hx of ETOH- ? Bleeding ulcer ? Varices - discussed with patient concerns and that she needs to be evaluated in ER for these symptoms - patient is willing to go to [facility] - declines ambulance- will drive - report given to [facility] at [place] 3. Epigastric discomfort - ICD9: 789.06, ICD10: R10.13 - as above Radha Cárdenas, MAURI.COMPLETIONS MANAGER Prescription instructions reviewed with patient as applicable. Patient advised if symptoms do not improve or if symptoms worsen sooner, to contact their primary care physician. Potential red flag symptoms discussed with the patient. Reviewed appropriate action plan to take if red flag symptoms occur. Patient agreeable to treatment plan. LEVOV Observed: 11/04/2017 Status: COMPLETED Source: [place] 8:00 AM [facility] REPOSITORY [facility] LARRY DOSHI ([id number]) 1975 F ARNIE Date Time Provider Department 11/04/17 8:00 AM RADHA CÁRDENAS (SHAHNAZ) NASIMA During your visit today, we recorded the following information about you: Pulse Respiration Blood pressure Weight 75/minute 16/minute 124/83 71.3 kg Marcelina Razo CONFIGURATION MANAGEMENT ADVISOR 11/04/2017 8:12 AM Signed Pt went er because she kept feeling like was going to pass out. States has these episodes where can stop in car at light and still feels like she is moving.Gets hot and sweaty when these things happen. Heart pounds. This am woke up vomiting, saw tigre blood in vomit bright red then went to dark in color. Radha Cárdenas APRN.SHAHNAZ 11/04/2017 2:53 PM Signed 11/04/2017 Patient presents with: ER F/U SUBJECTIVE: This is a 42 year old that is here today for Above Complaints. Went to ER on 10/31/2017 for left sided chest pain accompanied by a pounding heart, claminess, and SOB. Testing was performed which included EkG sinus at 87 with a short [place] interval of 78 and is otherwise normal. Troponin negative. Chem-7 is normal with glucose 73. CBC is normal. Chest x-ray is normal. She reported that she has had three episodes like this in 1 week that are not related to exertion and related they began when she started Wellbutrin 2 weeks prior. She was instructed to stop the Wellbutrin and follow-up with her PCP if not improving. Since ER visit she has stopped the Wellbutrin- 3 days ago. She has had a couple episodes since then were she has felt flushed, increased BP at home of 150's/90's, palpitations which precedes presyncope. She has sat down with these events and after some time feels better. She reports she has been eating and drinking without difficulty. Denies fever, weight loss, body aches, chills, SOB with exertion, dyspnea, coughing, wheezing, current chest pain and palpitations. She reports this morning of an episode of ANDquot;bright red vomitingANDquot; followed by two more episodes of ANDquot;dark vomiting.ANDquot; She is positive for nausea and epigastric discomfort reported as an ANDquot;constant acheANDquot; 2/10 on 1-10 pain scale. She is positive for Hx of GERD and admits to drinking ANDquot;6-7 beers daily.ANDquot; Denies coughing, melena, hematochezia diarrhea, constipation, and hx of bleeding ulcers. Last EGD was on 01/05/2015 with results below: The next day felt not Findings: ? ? ?Savwu-Sotelo Grade II (multiple lesions and folds, noncircumferential, ? ? ?with or without confluence) esophagitis with no bleeding was found 37 to ? ? ?40 cm from the incisors. Biopsies were taken with a cold forceps for ? ? ?histology. LES at 40cm. ? ? ?The entire examined stomach was normal. Biopsies were taken with a cold ? ? ?forceps for histology. Biopsies were taken with a cold forceps for ? ? ?Helicobacter pylori testing. ? ? ?The examined duodenum was normal. Impression: ? - Kelsy-Sotelo Grade II reflux esophagitis. Biopsied. ? - Normal stomach. Biopsied. ? - Normal examined duodenum. Recommendation: ? ? ? - Discharge patient to home (ambulatory). ? - Continue present medications. ? -?Return to primary care physician PRN. ? - Telephone GI clinic for pathology results in 2 weeks. Attending Participation: ? ? ?I personally performed the entire procedure. MD Keanu Bal MD 01/05/2015 9:44 AM This report has been signed electronically by Keanu Avila MD Number of Addenda: 0 Note Initiated On: 01/05/2015 9:26 AM Estimated Blood Loss: Estimated blood loss: none. Procedure Start: 9:37:22 AM Procedure End: 9:42:30 AM Last 5 BP Last 14 Encounter BP Readings: Date: BP: 11/04/2017 124/83[b/p true average[ 10/23/2017 141/100 10/05/2017 148/104 09/23/2017 132/92 08/07/2017 126/88 Repeat Blood Pressure BP Pulse HR Site Cuff Size Time Date 12079 75 --- Left Arm Regular 08:45 AM 11/04/2017 125/83 74 --- Left Arm Regular 08:43 AM 11/04/2017 124/81 75 --- Left Arm Regular 08:42 AM 11/04/2017 123/86 77 --- Left Arm Regular 08:41 AM 11/04/2017 126/85 74 --- Left Arm Regular 08:40 AM 11/04/2017 127/88 77 --- Left Arm Regular 08:40 AM 11/04/2017 Orthostatic Vitals BP Pulse Position Site Cuff Size Time Date 146102 83 Standing Right Arm --- 09:50 AM 11/04/2017 150/100 77 Sitting Right Arm Regular 09:50 AM 11/04/2017 146/100 74 Supine Right Arm Regular 09:49 AM 11/04/2017 PAST MEDICAL HISTORY Diagnosis Date - Cervical intraepithelial neoplasia 2006 - Closed C7 fracture (HCC) 06/16/2016 - Closed fracture of cervical vertebra (HCC) 09/25/2016 - Gastritis - GERD (gastroesophageal reflux disease) 12/11/2011 - Hidradenitis suppurativa 12/11/2011 - Lumbago 12/11/2011 - Spondylolisthesis 01/01/2012 - Tobacco abuse - Traumatic compression fracture of T2 thoracic vertebra (HCC) 06/16/2016 ALLERGIES Bactrim [Sulfamethoxazole] MEDICATIONS Current Outpatient Prescriptions: bisoprolol-hydrochlorothiazide (ZIAC) 2.5-6.25 mg per tablet Take 1 tablet by mouth once daily. ketotifen fumarate (ZADITOR) 0.025 % (0.035 %) ophthalmic solution Use 1 Drop in both eyes twice daily. pantoprazole DR (PROTONIX) 40 mg tablet Take 1 tablet by mouth once daily. Take on empty stomach, 1/2 hr before meal. gabapentin (NEURONTIN) 600 mg tablet Take 600 mg by mouth three times daily. Per Dr. Salinas buPROPion SR (WELLBUTRIN SR) 150 mg 12 hr tablet Take 1 tablet by mouth twice daily. albuterol HFA (VENTOLIN HFA) 90 mcg/actuation inhaler Inhale 2 Puffs as instructed every 4 hours as needed for Wheezing/Shortness of Breath. No current facility-administered medications for this visit. Medications and allergies reviewed by this provider. 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 OBJECTIVE: BP 128/78 (BP Site: Left Arm, BP Position: Sitting, BP Cuff Size: Large Adult) Pulse 60 Resp 16 Wt 71.3 kg (157 lb 1.3 oz) BMI 28.27 kg/m2. Vital signs reviewed by this provider. APPEARANCE Well appearing, alert, in no acute distress, well- hydrated, well nourished. EYES PERRLA, conjunctiva and sclera normal. NOSE/SINUS Nares normal. Septum midline. Mucosa normal. No drainage or sinus tenderness. THROAT normal, no erythema NECK Supple, no adenopathy; thyroid symmetric, normal size, no bruits HEART RRR with normal S1 and S2, no murmurs, no gallops, no JVD appreciated LUNG clear to auscultation ABDOMEN bowel sounds normoactive, no bruits, soft, non-tender, non-distended, without organomegaly or palpable masses EXTREMITIES Extremities normal, No deformities, No skin discoloration, No edema and Normal pulses bilaterally. ASSESSMENT/PLAN: 1. Palpitations - ICD9: 785.1, ICD10: R00.2 (primary diagnosis) - possibly related to anxiety vs unknown - no cardiac red flag exam findings - red flag symptoms discussed, patient verbalizes undeerstanding - HOLTER MONITOR 48 HOUR - follow-up pending results, to ER with red flag symtpoms 2. Hematemesis with nausea - ICD9: 578.0, 787.02, ICD10: K92.0 - concerning for active bleeding- hx of ETOH- ? Bleeding ulcer ? Varices - discussed with patient concerns and that she needs to be evaluated in ER for these symptoms - patient is willing to go to [facility] - declines ambulance- will drive - report given to [facility] ER at [place] 3. Epigastric discomfort - ICD9: 789.06, ICD10: R10.13 - as above Radha IrvinlogNIA mora Prescription instructions reviewed with patient as applicable. Patient advised if symptoms do not improve or if symptoms worsen sooner, to contact their primary care physician. Potential red flag symptoms discussed with the patient. Reviewed appropriate action plan to take if red flag symptoms occur. Patient agreeable to treatment plan. Radha Cárdenas APRN.CNP 11/04/2017 8:50 AM Signed You need to go to ER to have bloody emesis evaluated Please call to have Holter monitor placed Referring Provider: ER STAFF [[id number]] Allergies As of Date: 11/04/2017 Noted Allergy Reaction BACTRIM (SULFAMETHOXAZOLE) 12/13/2011 2 - Rash Date Reviewed: 11/04/2017 Reviewed by: Marcelina Razo LPN - Fully Assessed Reason for Visit: ER F/U [42] Primary Visit Diagnosis:Palpitations [R00.2] Other Visit Diagnoses:Hematemesis with nausea [K92.0] Epigastric discomfort [R10.13] Order(s):HOLTER MONITOR 48 HOUR [[id number]] Order #: [id number] FUTURE Prescriptions as of 11/04/2017 Sig: BISOPROLOL 2.5 MG-HYDROCHLORO* Take 1 tablet by mouth once d* KETOTIFEN 0.025 % (0.035 %) E* Use 1 Drop in both eyes twice* PANTOPRAZOLE 40 MG TABLET,DEL* Take 1 tablet by mouth once d* GABAPENTIN 600 MG TABLET Take 600 mg by mouth three ti* ALBUTEROL SULFATE HFA 90 MCG/* Inhale 2 Puffs as instructed * Problem List As Of Date 11/04/2017 Noted Resolved Lumbago [M54.5] INVALID FOR* GERD (gastroesophageal reflux disease) [K21.9] INVALID FOR* Hidradenitis suppurativa [L73.2] INVALID FOR* Spondylolisthesis [M43.10] INVALID FOR*09/23/2017 Tobacco abuse [Z72.0] INVALID FOR*09/23/2017 PONV (postoperative nausea and vomiting) [R11.2*INVALID FOR*08/21/2016 Esophageal reflux [K21.9] INVALID FOR*01/05/2015 Neck pain [M54.2] INVALID FOR*09/23/2017 Closed fracture of cervical vertebra (HCC) [S12*INVALID FOR*09/23/2017 Tobacco use disorder [F17.200] INVALID FOR* Neck pain, chronic [M54.2, G89.29] INVALID FOR* Other instructions from your clinician: You need to go to ER to have bloody emesis evaluated Please call to have Holter monitor placed Visit Notes: >> Marcelina Razo JACQUI Jones Nov 04, 2017 8:08 AM Status: Signed Pt went er because she kept feeling like was going to pass out. States has these episodes where can stop in car at light and still feels like she is moving.Gets hot and sweaty when these things happen. Heart pounds. This am woke up vomiting, saw tigre blood in vomit bright red then went to dark in color. Medications Discontinued During This Encounter buPROPion SR (WELLBUTRIN SR) 150 mg * 60 t* 0 09/23/2017 11/04/2017 Route: ORAL Sig: Take 1 tablet by mouth twice daily. Disc: Discontinued by Patient Follow-up and Disposition History Recorded Classic SmartForms filed during this visit: Extended Vitals Encounter Status:Closed by RADHA CÁRDENAS CNP on 11/04/17 EMERGENCY DEPARTMENT Observed: 10/31/2017 Status: F Source: [place] SUMMARY 5:39 PM [facility] REPOSITORY [facility] Medical Records Department [address] [place] [address] Emergency Department Summary 10/31/17 1506 MR#: [id number] Acct: [id number] Name: ALLISON DOSHI Rep #: [id number] : 1975 42 From: Ish Mcdonald MD PCP: Donald Henderson MD Status: DEP ER - ER Visit Summary Date of Service: 10/31/17 Chief Complaint: Chest pain History of Present Illness: The patient is a [address] Henderson. She reports 10:00 this morning while walking around she had the onset of a left- sided chest pain. She describes this as a pounding heart. States that it lasts approximately 30 minutes. Nothing seemed to make this worse including exertion or breathing. Also, nothing made this better. Pain was 10 out of 10 at worst and she is pain-free currently. She does report that she got clammy and short of breath when this occurred. Patient reports that this is the third time this week that she has had an episode like this. They are not related to exertion. She then relates that she began Wellbutrin 2 weeks ago for smoking sensation and doubled her dose earlier this week. Physical Examination: Vitals: Stable. Afebrile. General: Well-nourished and well-developed. Head: Normocephalic atraumatic. Neck: Supple, no lymphadenopathy. No JVD. Nontender. Cardiovascular: Regular rate and rhythm. No murmurs. Respiratory: No respiratory distress. Clear to auscultation bilaterally. Abdominal: Soft, nontender, nondistended, normal bowel sounds. No guarding, rebound, or peritoneal signs. Back: Nontender. Extremities: Nontender, no edema. Skin: Normal color, no rash. Neurologic: Alert and oriented 3. Cranial nerves II through XII are intact. Normal strength and sensation. Psych: Normal affect. Test Results: EKG is sinus at 87 with a short [place] interval of 78 and is otherwise normal. Troponin is negative. Chem-7 is more for glucose 73. CBC is normal. Chest x-ray is normal. Emergency Department Course and Treatment: Had a prolonged discussion the patient about her symptoms and potential causes. This does not seem to be cardiac in etiology. Treatment Plan: I have suggested that she stop the Wellbutrin and follow-up with her primary care physician in 3-5 days not improving. Return to the emergency department for any worsening symptoms. Disposition: To home in improved and stable condition. Impression: 1. Atypical chest pain. This note was generated with [employer] dictation software. It may contain incorrect words, spelling, and punctuation that were not noted in review of the chart prior to signing ED Disposition - Plan for ED Patient: Disposition: Home or Assisted Living Chief Complaint: Chest Pain Instructions: ED Chest Pain Atypical Unkn Cause Referrals: Donald Henderson MD [Primary Care Provider] - 3-5 Days if not improving What to do if you have Problems For any increased pain, shortness of breath, bleeding, nausea or vomiting, chest pain, or any unexpected problems, contact your Primary Care Provider. Call [facility] ([phone]) or report to the closest Emergency Room. Call 911 if necessary. 10/31/17 0180 <Electronically signed by Ish Mcdonald MD> Date Ish Mcdonald MD Cosigner Signature (If Indicated): Date CC: Donald Henderson MD CBC W/DIFF, AUTOMATED Collected: 10/31/2017 Status: F Source: [place] 1:13 PM [facility] REPOSITORY TYPE CODE TESTS RESULT OUT OF RANGE REFERENCE UNITS LAB L100.1000 4.4-11.0 K/mm3 Normal WBC 6.7 LAB L100.1200 4.2-5.4 M/mm3 Normal RBC 4.60 LAB L100.1300 12.0-15.0 g/dl Normal HGB 14.8 LAB L100.1400 37-47 % Normal HCT 43.9 LAB L100.1500 81-99 fL Normal MCV 95.4 LAB L100.1600 27.0-32.0 pg High MCH 32.2 LAB L100.1700 32-36 g/gl Normal MCHC 33.7 LAB L100.1810 11.6-14.6 % Normal RDW CV 12.3 LAB L100.1820 35.1-43.9 fl Normal RDW SD 42.0 LAB L100.1900 150-450 K/mm3 Normal PLT 207 LAB L100.2000 6.2-12.0 fl Normal MPV 10.5 LAB L100.2100 47-70 % Normal NEUT% 66.1 LAB L100.2200 19-41 % Normal LY% 24.0 LAB L100.2300 0-10 % Normal MONO% 6.6 LAB L100.2400 0-5 % Normal EO% 2.8 LAB L100.2500 0-1 % Normal BASO% 0.4 LAB L100.2550 0.0-0.9 % Normal IM GRAN % 0.100 Result Comment: IG% - Immature Granulocytes (promyelocytes, myelocytes and metamyelocytes) > 1% indicates that a LEFT SHIFT is Present. LAB L100.2620 2.0-7.7 X10 3/uL Normal Absolute Neut 4.4 LAB L100.2720 0.83-4.51 X10 3/ul Normal Absolute Lymph 1.60 Performed By: #### L100.0100 #### [facility] [address] [place], [place], [address] BASIC METABOLIC Collected: 10/31/2017 Status: F Source: [place] PROFILE (BMP) 1:13 PM [facility] REPOSITORY Order Comment: 'TROP' Serial specimen #1, #2, #3, or #4: 1 TYPE CODE TESTS RESULT OUT OF RANGE REFERENCE UNITS LAB L501.0100 74-106 mg/dL Low GLU 73 Result Comment: Please note revised GLUCOSE reference range effective 2017. LAB L501.1000 7-18 mg/dL Normal BUN 13 LAB L501.1100 0.55-1.02 mg/dL Normal CREAT,SERUM 0.79 Result Comment: The validity of the calculated GFR AND GFRAA in patients over 70 years has not been determined. Clinical correlation is essential. LAB L501.1110 >60 mL/min Normal EST GFR 85 Result Comment: Non- GFR Calc LAB L501.1115 >60 mL/min Normal EST GFR - AA 103 Result Comment: GFR Calc LAB L501.1255 ml/min Normal Estimated CRCL 70.72 LAB L501.1300 10-20 RATIO Normal BUN/CRE 16.5 LAB L501.2200 8.5-10 mg/dL Normal .1 CA 9.0 LAB L501.5300 136-14 mmol/L Normal 5 NA 138 LAB L501.5600 3.5-5. mmol/L Normal 1 K 3.9 LAB L501.5900 98-107 mmol/L Normal CL 105 LAB L501.6100 21.0-3 mmol/L Normal 2.0 CO2 26.0 LAB L501.6200 5-15 Normal GAP 7 Performed By: #### L500.2500, L501.4010 #### [facility] [address] [place], [place], [id number] TROPONIN-I Collected: 10/31/2017 Status: F Source: [place] 1:13 PM [facility] REPOSITORY Order Comment: 'TROP' Serial specimen #1, #2, #3, or #4: 1 TYPE CODE TESTS RESULT OUT OF RANGE REFERENCE UNITS LAB L501.4010 <0.06 ng/mL Normal < 0.02 TROPONIN-I Result Comment: TROPONIN-I EXPECTED VALUES <0.05 NEGATIVE 0.06 - 0.59 AT RISK OF VA > OR = 0.60 SUGGEST VA Performed By: #### L500.2500, L501.4010 #### [facility] [address] [place], [place], [address] CHEST 1 VIEW Observed: 10/31/2017 Status: F Source: [place] (PORTABLE) 1:08 PM [facility] REPOSITORY [facility] Imaging Services [address] [address] [facility] [address] Chest 1 View (Portable) MR#: [id number] Acct: [id number] Name: ALLISON DOSHI Rep #: [id number] : 1975 F 42 From: Aaron Zhong MD PCP: Donald Henderson MD Status: REG ER Study: Chest 1 View (Portable) Date of Exam: 10/31/17 Exam# [id number] Ordering Dr: Ish Mcdonald MD STUDY: X-RAY CHEST REASON FOR EXAM: Female, 42 years old. Sternal chest pain. Dizziness and diaphoresis. TECHNIQUE: Single AP portable view of the chest. COMPARISON: None. FINDINGS: EKG electrodes are seen. The lungs are clear and expanded. There is no demonstrated pleural abnormality. Normal size heart. Normal mediastinum and lang. Normal visualized pulmonary arteries. There is atherosclerotic tortuosity of the aortic arch and descending thoracic aorta. Normal visualized thoracic spine. Normal visualized ribs, clavicles, and shoulders. There is no demonstrated abnormality of the visualized soft tissue structures of the upper abdomen. RAD/Chest 1 View (Portable) IMPRESSION: No acute abnormality is seen. Electronically Signed: Aaron Zhong MD at 13:44 EDT Tel [phone], Service support , CC: Ish Mcdonald MD; Donald Henderson MD Programmer Operator Numerical Control: Signed ORTHOPEDIC VISIT Observed: 10/30/2017 Status: F Source: [place] REPORT 11:36 AM [facility] REPOSITORY [facility] Orthopaedics AND Sports Medicine [address] [place] [address] [address] [place] [address] OFFICE VISIT Date of Service: 10/30/17 MR#: [id number] Acct: [id number] Name: ALLISON DOSHI Rep #: [id number] : 1975 Provider: Gregoria Gaviria DO Age/Sex: 42/F [place] [facility] [place] [place]: Signed Intake Intake Visit Reasons: Wrist pain Is patient in pain?: Yes Allergies Sulfa (Sulfonamide Antibiotics) Allergy (Verified 10/30/17 09:10) Rash Medications Pantoprazole Sodium [Protonix] 40 mg PO DAILY 06/16/16 [History Confirmed 10/30/17] Sucralfate 1 gm PO BID 06/13/17 [History Confirmed 10/30/17] ecekeai-fcihrickuzgve-yldbryzw 250 mg-250 mg-65 mg tablet 1 tab PO ONCE 10/01/17 [History Confirmed 10/30/17] gabapentin 300 mg capsule 600 mg PO TID cap 10/01/17 [History Confirmed 10/30/17] Naproxen [Naprosyn] 500 mg PO BID PRN #20 tab 10/05/17 [Rx Confirmed 10/30/17] bisoprolol 2.5 mg-hydrochlorothiazide 6.25 mg tablet 1 tab PO QDAY 10/30/17 [History Confirmed 10/30/17] bupropion HCl 100 mg tablet 100 mg PO BID 10/30/17 [History Confirmed 10/30/17] PFSH Medical History Back pain (Acute) Neck pain (Acute) Hypertension (Chronic) Surgical History H/O: hysterectomy (Inactive) Family History Other Alzheimer's dementia Cancer Congestive heart failure Diabetes Hypertension Myocardial infarction Social History Smoking Status: Current every day smoker HPI Pain in wrist: Details: ALLISON DOSHI is a 42 year old F here today referred from Dr Conteh for bilateral carpal tunnel, right worse than left. Patient complains of pain over her entire right arm, and her bilateral hands go numb. Patient had an epidural injection by Brad in September, which has helped some of her right hand numbness. 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 Patient denies any injections or bracing. She had an EMG which is here for review. She denies any xrays. ROS Const Reports system reviewed and no additional complaints, except as docu Eyes Reports system reviewed and no additional complaints, except as docu ENT Reports system reviewed and no additional complaints, except as docu Card Reports system reviewed and no additional complaints, except as docu Resp Reports system reviewed and no additional complaints, except as docu GI Reports system reviewed and no additional complaints, except as docu Reports system reviewed and no additional complaints, except as docu Musc Reports tingling, Reports numbness, Reports radiating pain into limb, Reports muscle weakness Skin/Breast Reports system reviewed and no additional complaints, except as docu Neuro Yes system reviewed and no additional complaints, except as docu, Yes tingling, Yes numbness Psych Reports system reviewed and no additional complaints, except as docu Endo Reports system reviewed and no additional complaints, except as docu Ortho Exam Right Wrist/Hand Skin/Wound: Yes CDI Contralateral Normal: No A1 guillermo trigger: No Right Wrist: Yes ROM-Extension 0-60, ROM-Flexion 0-80, ROM- Pronation 0-80, ROM-Supination 0-90 and Durken's Test Motor: EPL: 5, FDP-2: 5, 1st Dorsal Interosseous: 5, APB: 5 Sensation: Radial: I, Median: D Left Wrist/Hand Skin/Wound: Yes CDI Contralateral Normal: No A1 guillermo trigger: No Left Wrist: Yes ROM-Extension 0-60, Yes ROM-Flexion 0-80, Yes ROM-Pronation 0-80, Yes ROM-Supination 0-90 and Yes Durken's Test Motor: EPL: 5, FDP-2: 5, 1st Dorsal Interosseous: 5, APB: 5 Sensation: Radial: I, Median: D Office Procedures Ortho Injections Injections Yes Carpal Tunnel Injection Bilateral Details: Obtained consent for injection. Under sterile conditions, injected the patients right and left carpal tunnel with 1cc bupivacaine and 1/2cc kenalog. The patient tolerated the injection well without any noted complication. Patient should call our office if redness develops, pain worsens or if they have any concerns. Office Meds Kenalog Performing Provider: Gregoria Gaviria DO Administered by: Gregoria Gaviria DO on 10/30/17 09:50 Dose Route Admin Location Lot Number Expiration DateNDC Department Traffic Freight Router 0.5 mg Tendon Sheath Ibilat carpal [id number] 11/18/18 [id number] [facility] PRODUCT Assessment AND Plan 1. Bilateral carpal tunnel syndrome G56.03 Plan Personally reviewed the patient's medical history, medications, surgeries and recent exams if available. X-rays were reviewed. There is no obvious fracture, dislocation, or lucency noted. Educated the patient on the anatomy of the wrist and innervation of the nerves. Explained that she has bilateral carpal tunnel. Reviewed supplement usage for her migraines as well today. Her treatment options are do nothing, injections, bracing, oral anti inflammatories and/or emg. Follow up as needed or sooner if pain, swelling, numbness or associated symptoms, or concerns develop. All questions answered. Patient in agreement of plan. Orders Orders: Medications Discontinued: Kenalog (triamcinolone acetonide) Di0.5 mg (0.05 mL) Tendon Sheath Inj. ONC Ari Payne scontinued Reason: Office Medication hE NS as been Documented as given Coding Level of Care Code Off vis,est,level 4 Diagnoses Bilateral carpal tunnel syndrome G56.03 Additional Codes electrotype finisher.carp ([id number]) 10/30/17 1136 <Electronically signed by Gregoria Gaviria DO> Date Gregoria Gaviria DO Cosigner Signature: Date (if applicable) CC: Josselin Conteh MD PROGRESS Observed: 10/23/2017 Status: COMPLETED Source: [place] 5:11 PM [facility] REPOSITORY HNO ID: [id number] Author: Donald Henderson Service: (none) Author Type: Physician Type: Progress Notes Filed: 10/23/2017 5:23 PM Note Text: This note was created using Magneto[employer]Inertial Fusion Technologiesriter. Subjective Larry Doshi is a 42 year old female here for follow up. She was seen in the ED for chest pain, and work up including CT of the chest was negative. Her blood pressure continued to be elevated. She just started Wellbutrin a few days ago and was cutting down on tobacco. Her GERD was controlled. Chronic pains were better with her recent injection. ACTIVE PROBLEM LIST Lumbago Gerd (Gastroesophageal Reflux Disease) Hidradenitis Suppurativa Tobacco Use Disorder Neck Pain, Chronic Current Outpatient Prescriptions: ketotifen fumarate (ZADITOR) 0.025 % (0.035 %) ophthalmic solution Use 1 Drop in both eyes twice daily. pantoprazole DR (PROTONIX) 40 mg tablet Take 1 tablet by mouth once daily. Take on empty stomach, 1/2 hr before meal. gabapentin (NEURONTIN) 600 mg tablet Take 600 mg by mouth three times daily. Per Dr. Salinas bisoprolol-hydrochlorothiazide (ZIAC) 2.5-6.25 mg per tablet Take 1 tablet by mouth once daily. buPROPion SR (WELLBUTRIN SR) 150 mg 12 hr tablet Take 1 tablet by mouth twice daily. albuterol HFA (VENTOLIN HFA) 90 mcg/actuation inhaler Inhale 2 Puffs as instructed every 4 hours as needed for Wheezing/Shortness of Breath. No current facility-administered medications for this visit. Review of Systems Constitutional: Negative. Respiratory: Negative. Cardiovascular: Negative. Musculoskeletal: Positive for back pain and neck pain. Psychiatric/Behavioral: Negative. Objective BP 141/100 (BP Site: Right Arm, BP Position: Sitting, BP Cuff Size: Regular Adult) Pulse 99 Temp 36.7 ?C (98 ?F) (Left Tympanic) Resp 20 Wt 70.8 kg (156 lb) BMI 28.08 kg/m2 Physical Exam Constitutional: No distress. Cardiovascular: Normal heart sounds and intact distal pulses. Pulmonary/Chest: Breath sounds normal. Musculoskeletal: She exhibits no edema. Assessment and Plan ASSESSMENT/PLAN: 1. Essential hypertension - ICD9: 401.9, ICD10: I10 (primary diagnosis) - newly diagnosed - Encouraged dietary sodium restriction/DASH diet - Reviewed risks of HTN and principles of treatment - BISOPROLOL 2.5 MG-HYDROCHLOROTHIAZIDE 6.25 MG TABLET - BASIC METABOLIC PNL Discussed medication dosage, usage, goals of therapy, and side effects. 2. Tobacco use disorder - ICD9: 305.1, ICD10: F17.200 - Cessation encouraged. - Call for Wellbutrin refill 3. Gastroesophageal reflux disease, esophagitis presence not specified - ICD9: 530.81, ICD10: K21.9 Controlled. Donald Henderson MD CNOV Observed: 10/23/2017 Status: COMPLETED Source: [place] 4:20 PM [facility] REPOSITORY Office Visit (INTMWS) LARRY DOSHI ([id number]) 1975 [facility] Date Time Provider Department 10/23/17 4:20 PM DONALD HENDERSON INTMWS During your visit today, we recorded the following information about you: Temperature Pulse Respiration Blood pressure 98 degrees 99/minute 20/minute 141/100 Weight 70.8 kg Donald Henderson MD 10/23/2017 5:23 PM Signed This note was created using NoteWriter. Subjective Larry Doshi is a 42 year old female here for follow up. She was seen in the ED for chest pain, and work up including CT of the chest was negative. Her blood pressure continued to be elevated. She just started Wellbutrin a few days ago and was cutting down on tobacco. Her GERD was controlled. Chronic pains were better with her recent injection. ACTIVE PROBLEM LIST Lumbago Gerd (Gastroesophageal Reflux Disease) Hidradenitis Suppurativa Tobacco Use Disorder Neck Pain, Chronic Current Outpatient Prescriptions: ketotifen fumarate (ZADITOR) 0.025 % (0.035 %) ophthalmic solution Use 1 Drop in both eyes twice daily. pantoprazole DR (PROTONIX) 40 mg tablet Take 1 tablet by mouth once daily. Take on empty stomach, 1/2 hr before meal. gabapentin (NEURONTIN) 600 mg tablet Take 600 mg by mouth three times daily. Per Dr. Salinas bisoprolol-hydrochlorothiazide (ZIAC) 2.5-6.25 mg per tablet Take 1 tablet by mouth once daily. buPROPion SR (WELLBUTRIN SR) 150 mg 12 hr tablet Take 1 tablet by mouth twice daily. albuterol HFA (VENTOLIN HFA) 90 mcg/actuation inhaler Inhale 2 Puffs as instructed every 4 hours as needed for Wheezing/Shortness of Breath. No current facility-administered medications for this visit. Review of Systems Constitutional: Negative. Respiratory: Negative. Cardiovascular: Negative. Musculoskeletal: Positive for back pain and neck pain. Psychiatric/Behavioral: Negative. Objective BP 141/100 (BP Site: Right Arm, BP Position: Sitting, BP Cuff Size: Regular Adult) Pulse 99 Temp 36.7 ?C (98 ?F) (Left Tympanic) Resp 20 Wt 70.8 kg (156 lb) BMI 28.08 kg/m2 Physical Exam Constitutional: No distress. Cardiovascular: Normal heart sounds and intact distal pulses. Pulmonary/Chest: Breath sounds normal. Musculoskeletal: She exhibits no edema. Assessment and Plan ASSESSMENT/PLAN: 1. Essential hypertension - ICD9: 401.9, ICD10: I10 (primary diagnosis) - newly diagnosed - Encouraged dietary sodium restriction/DASH diet - Reviewed risks of HTN and principles of treatment - BISOPROLOL 2.5 MG-HYDROCHLOROTHIAZIDE 6.25 MG TABLET - BASIC METABOLIC PNL Discussed medication dosage, usage, goals of therapy, and side effects. 2. Tobacco use disorder - ICD9: 305.1, ICD10: F17.200 - Cessation encouraged. - Call for Wellbutrin refill 3. Gastroesophageal reflux disease, esophagitis presence not specified - ICD9: 530.81, ICD10: K21.9 Controlled. Donald Henderson MD Referring Provider: DONALD HENDERSON [[id number]] Allergies As of Date: 10/23/2017 Noted Allergy Reaction BACTRIM (SULFAMETHOXAZOLE) 12/13/2011 2 - Rash Date Reviewed: 10/23/2017 Reviewed by: Sherita E Vince CONFIGURATION MANAGEMENT ADVISOR - Fully Assessed Reason for Visit: F/U 1 month [1175] Primary Visit Diagnosis:Essential hypertension [I10] Other Visit Diagnoses:Tobacco use disorder [F17.200] Gastroesophageal reflux disease, esophagitis presence not specified [K21.9] Order(s):bisoprolol-hydrochlorothiazide (ZIAC) 2.5-6.25 mg per tabletTake 1 tablet by mouth once daily.Disp: 30 tabletRfl: 5 BASIC METABOLIC PNL [SQBMP] Order #: [id number] FUTURE Prescriptions as of 10/23/2017 Sig: KETOTIFEN 0.025 % (0.035 %) E* Use 1 Drop in both eyes twice* PANTOPRAZOLE 40 MG TABLET,DEL* Take 1 tablet by mouth once d* GABAPENTIN 600 MG TABLET Take 600 mg by mouth three ti* BISOPROLOL 2.5 MG-HYDROCHLORO* Take 1 tablet by mouth once d* BUPROPION HCL SR 150 MG TABLE* Take 1 tablet by mouth twice * ALBUTEROL SULFATE HFA 90 MCG/* Inhale 2 Puffs as instructed * Medication notes this encounter BUPROPION HCL SR 150 MG TABLET,12 HR SUSTAINED-RELEASE >> Sherita Coronaer JACQUI 10/23/2017 4:56 PM >> VINCESHERITA CONFIGURATION MANAGEMENT ADVISOR FriOct 23, 2017 4:56 PM Patient started taking 1 tablet once daily, 10/20/2017 ALBUTEROL SULFATE HFA 90 MCG/ACTUATION AEROSOL INHALER >> Sherita Coronaer CONFIGURATION MANAGEMENT ADVISOR 10/23/2017 4:55 PM >> VINCESHERITA CONFIGURATION MANAGEMENT ADVISOR Terri Oct 23, 2017 4:55 PM Duplicate SUCRALFATE 1 GRAM TABLET >> Sherita E Vince CONFIGURATION MANAGEMENT ADVISOR 10/23/2017 4:57 PM >> VINCEWILIEN E CONFIGURATION MANAGEMENT ADVISOR Terri Oct 23, 2017 4:57 PM PRN ALBUTEROL SULFATE HFA 90 MCG/ACTUATION AEROSOL INHALER >> Sherita E Vince CONFIGURATION MANAGEMENT ADVISOR 10/23/2017 4:55 PM >> VINCEWILIEN E CONFIGURATION MANAGEMENT ADVISOR Terri Oct 23, 2017 4:55 PM Not using. Problem List As Of Date 10/23/2017 Noted Resolved Lumbago [M54.5] INVALID FOR* GERD (gastroesophageal reflux disease) [K21.9] INVALID FOR* Hidradenitis suppurativa [L73.2] INVALID FOR* Spondylolisthesis [M43.10] INVALID FOR*09/23/2017 Tobacco abuse [Z72.0] INVALID FOR*09/23/2017 PONV (postoperative nausea and vomiting) [R11.2*INVALID FOR*08/21/2016 Esophageal reflux [K21.9] INVALID FOR*01/05/2015 Neck pain [M54.2] INVALID FOR*09/23/2017 Closed fracture of cervical vertebra (HCC) [S12*INVALID FOR*09/23/2017 Tobacco use disorder [F17.200] INVALID FOR* Neck pain, chronic [M54.2, G89.29] INVALID FOR* Prescriptions ordered this encounter Disp Refills Start End BISOPROLOL 2.5 MG-HYDROCHLOROTHIAZID* 30 t* 5 10/23/2017 Route: ORAL Sig: Take 1 tablet by mouth once daily. Medications Discontinued During This Encounter albuterol HFA (VENTOLIN HFA) 90 mcg/* 1 In* 0 08/21/2016 10/23/2017 Route: INHALATION Sig: Inhale 2 Puffs as instructed every 6 hours as needed (cough). Disc: Reason for discontinue is not on file. sucralfate (CARAFATE) 1 gram tablet 180 * 1 03/31/2017 10/23/2017 Route: ORAL Sig: Take 1 tablet by mouth twice daily as needed (acid indigestion.). Disc: Reason for discontinue is not on file. Disposition: Return in about 4 months (around 02/22/2018). Follow-up and Disposition History Recorded Encounter Status:Closed by DONALD HENDERSON MD on 10/23/17 ORTHOPEDIC VISIT Observed: 10/19/2017 Status: F Source: [place] REPORT 12:25 PM [facility] REPOSITORY [facility] Medicine [address] [place], [place] [id number] OFFICE VISIT Date of Service: 10/14/17 MR#: [id number] Acct: [id number] Name: ALLISON DOSHI Rep #: [id number] : 1975 Provider: Josselin Conteh MD Age/Sex: 42/F [place] [facility] [place] [place]: Signed Intake Vital Signs10/15/17 Height 5 ft 1 in 10/15/17 Weight: 155 lb 10/15/17 Body Mass Index (BMI) 29.2 Intake Visit Reasons: Cervical pain Is patient in pain?: Yes Pain scale (1-10): 3 Allergies Sulfa (Sulfonamide Antibiotics) Allergy (Verified 10/05/17 14:57) Rash Medications Pantoprazole Sodium [Protonix] 40 mg PO DAILY 06/16/16 [History Confirmed 10/05/17] Sucralfate 1 gm PO BID 06/13/17 [History Confirmed 10/05/17] fpapilf-xmakezkygjyyb-vjjakpin 250 mg-250 mg-65 mg tablet 1 tab PO ONCE 10/01/17 [History Confirmed 10/05/17] gabapentin 300 mg capsule 600 mg PO TID cap 10/01/17 [History Confirmed 10/05/17] Naproxen [Naprosyn] 500 mg PO BID PRN #20 tab 10/05/17 [Rx] PFSH Medical History Back pain (Acute) Neck pain (Acute) Hypertension (Chronic) Surgical History H/O: hysterectomy (Inactive) Family History Other Alzheimer's dementia Cancer Congestive heart failure Diabetes Hypertension Myocardial infarction Social History Smoking Status: Current every day smoker HPI Pain of cervical spine: Details: ALLISON DOSHI is a 42 year old RHD F who presents with cervical spine pain 40% and bilateral diffuse arm pain 60%. Patient notes that she has had right arm greater than left, since her cervical spine fracture in 05/2016. She describes numbness and burning. She fractured her C7 and T2 vertebral body from skateboarding. Patient was in a ellyn brace for 3 months following her fracture. She then did physical therapy but had to stop due to increased pain. Patient notes that she has constant pain and nothing improves her pain. Her pain is never relieved. Patient had injections by Dr Salinas which were not helpful. She is taking gabapentin which is helpful, given to her by Dr Salinas. She denies difficulty with hand dexterity, gait instability or bowel or bladder issues. 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 She has hypertension. She does smoke 2ppd and drinks 6 beers daily. She denies illicit drug use. ROS Const Reports system reviewed and no additional complaints, except as docu Eyes Reports system reviewed and no additional complaints, except as [facility] ENT Reports system reviewed and no additional complaints, except as docu Card Reports system reviewed and no additional complaints, except as docu Resp Reports system reviewed and no additional complaints, except as docu GI Reports system reviewed and no additional complaints, except as docu Reports system reviewed and no additional complaints, except as docu Musc Reports back pain, Reports radiating pain into limb, Reports numbness Skin/Breast Reports system reviewed and no additional complaints, except as [facility] Neuro Yes system reviewed and no additional complaints, except as [facility], Yes numbness Psych Reports system reviewed and no additional complaints, except as docu Endo Reports system reviewed and no additional complaints, except as docu Ortho Exam Spine Neuro: Yes Rogers's ( negative bilaterally), Spurling's (negative bilaterally), Clonus (none bilaterally) and Babinski (downgoing bilaterally) General: alert, oriented x3 Capillary Refill <2sec: Yes Palpable Pulses: 2+ dp and pt pulses bilaterally Gait: normal gait, other (heel and toe walk intact as well as tandem gait) Motor: strength 5/5 throughout Sensory Exam: no sensory deficits noted DTR's: Rt Triceps: 2+, Lt Triceps: 2+, Rt Biceps: 2+, Lt Biceps: 2+, Rt Brachioradialis: 2+, Lt Brachioradialis: 2+, Rt Patellar: 2+, Lt Patellar: 2+, Rt Ankle: 2+, Lt Ankle: 2+ Plantar Reflexes: Downgoing: bilateral Coordination: tandem gait normal, Romberg test normal, other (normal rapid inspector outside production and release bilaterally) SPINE TESTING CERVICAL THORACIC LUMBAR Musculoskeletal General: Yes normal gait and normal posture Cervical Spine: cervical muscular tenderness, pain with cervical ROM, cervical spinal tenderness Thoracic/Lumbar Spine: thoraco-lumbar ROM normal Strength 0=absent - 5=normal Deltoid R (C5): 5, Deltoid L (C5): 5, R Bicep (C5-6): 5, L Bicep (C5-6): 5, R Wrist Extensor (C6): 5, L Wrist Extensor (C6): 5, R Tricep (C7): 5, L Tricep (C7): 5, R Finger Flexors (C8): 5, L Finger Flexors (C8): 5, R First Dorsal Interossei (C8): 5, L First Dorsal Interossei (C8): 5, R Hip Flexor (L1-3): 5, L Hip Flexor (L1-3): 5, R Quadriceps (L2-4): 5, L Quadriceps (L2-4): 5, R Anterior Tibialis (L4-5): 5, L Anterior Tibialis (L4- 5): 5, R Hamstrings (L5-S1): 5, L Hamstrings (L5-S1): 5, GS (S1): 5 Assessment AND Plan 1. Pain of cervical spine M54.2 Plan Imaging: XR cervical spine - diffuse spondylosis, no anterolisthesis MRI cervical spine 08/13/2017 CD - diffuse spondylosis with old C7 compression fracture and T2 superior endplate fracture. No acute fracture or significant stenosis EMG 08/12/2017 - bilateral mild carpal tunnel syndrome I/R/P: 1. neck pain 2. bilateral arm pain 3. nicotine use Ms. Doshi presents with neck pain and bilateral nondermatomal arm pain. Her imaging findings reveal healed fractures without stenosis. Her EMG reveals no acute radiculopathy. The natural history and course of the symptomatology of neck pain was discussed in detail with the patient. I answered all questions regarding the mode of onset, pathophysiology, symptoms, imaging findings, treatment options regarding her diagnosis. Recommend continued conservative treatment with Dr. Salinas. Referral to Dr. Gaviria for carpal tunnel syndrome evaluation. Follow up as needed. Plan of care discussed. All questions answered. The patient verbalized understanding of the disease process and agreed to the treatment plan formulated for this visit. Orders Orders: Coding Level of Care Code Off vis,new,level 4 Diagnoses Pain of cervical spine M54.2 10/19/17 1225 <Electronically signed by Josselin Conteh MD> Date Josselin Conteh MD Cosigner Signature: Date (if applicable) CC: Raul Salinas CERV SPINE 4 OR 5 Observed: 10/14/2017 Status: F Source: [place] VIEWS 10:25 AM [facility] REPOSITORY [facility] Imaging Services [address] [place] [address] Cerv Spine 4 or 5 Views MR#: [id number] Acct: [id number] Name: ALLISON DOSHI Rep #: [id number] : 1975 F 42 From: Gianluca Campos DO PCP: Donald Henderson MD Status: REG CLI Study: Cerv Spine 4 or 5 Views Date of Exam: 10/14/17 Exam# [id number] Ordering Dr: Josselin Conteh MD STUDY: X-RAY - CERVICAL SPINE REASON FOR EXAM: Female, 42 years old. Neck pain. TECHNIQUE: 6 view(s) of the cervical spine were obtained. COMPARISON: None FINDINGS: Normal anterior atlantoaxial articulation. Normal odontoid process. Normal cervical lordosis. Normal vertebral bodies and endplates. There is minimal disc space narrowing most marked at C6-7. Normal visualized intervertebral neuroforamina. There is no evidence of acute fracture or loss of vertebral axial height. There is maintenance of normal alignment. The soft tissue structures are unremarkable. RAD/Cerv Spine 4 or 5 Views IMPRESSION: Mild disc degeneration at C6-7. Electronically Signed: Gianluca Campos DO at 14:49 EDT Tel [phone], Service support , CC: Josselin Conteh MD; Donald Henderson MD Programmer Operator Numerical Control: Signed 12 LEAD ELECTROCARDIOGRAM Observed: 10/07/2017 Status: F Source: [place] 3:21 PM [facility] REPOSITORY [facility] Cardiovascular Services [address] [place] [address] 12 Lead EKG 10/05/17 1518 MR#: [id number] Acct: [id number] Name: ALLISON DOSHI Rep #: [id number] : 1975 42 From: Stevo Nino MD Attending Dr: Status: DEP ER Ordering Dr: Demetrice Victor MD Date: 10/05/17 Location: ED Sex: F C Admitted: Test Reason : CP Blood Pressure : / mmHG Vent. Rate : 100 BPM Atrial Rate : 100 BPM P-R Int : 118 ms QRS Dur : 074 ms QT Int : 350 ms P-R-T Axes : 049 049 038 degrees QTc Int : 451 ms Normal sinus rhythm Normal ECG Confirmed by STEVO NINO MD ([id number]), technical writer and editor JESSICA SOTELO ([id number]) on 10/07/2017 3:21:19 PM Referred By: BONNIE Confirmed By:STEVO NINO MD 10/07/17 1521 Date Stevo Nino MD CC: Demetrice Victor MD; Donald Henderson MD Signed DISCHARGE INSTRUCTION Observed: 10/05/2017 Status: F Source: [place] 7:28 PM [facility] REPOSITORY [facility] Medical Records Department [address] [place] [address] Discharge Instruction 10/05/171926 MR#: [id number] Acct: [id number] Name: ALLISON DOSHI Rep #: [id number] : 1975 42 From: Demetrice Victor MD PCP: Donald Henderson MD Status: REG ER ED Disposition - Plan for ED Patient: Chief Complaint: Chest Other Instructions: ED Chest Pain Atypical Unkn Cause Prescriptions: Naproxen [Naprosyn] 500 mg PO BID PRN #20 tablet Referrals: Donald Henderson MD [Primary Care Provider] - What to do if you have Problems For any increased pain, shortness of breath, bleeding, nausea or vomiting, chest pain, or any unexpected problems, contact your Primary Care Provider. Call [facility] ([phone]) or report to the closest Emergency Room. Call 911 if necessary. 10/05/171927 <Electronically signed by Demetrice Victor MD> Date Demetrice Victor MD Cosigner Signature (If Indicated): Date CC: Donald Henderson MD EMERGENCY DEPARTMENT Observed: 10/05/2017 Status: F Source: [place] SUMMARY 7:27 PM [facility] REPOSITORY [facility] Medical Records Department [address] [place] [address] Emergency Department Summary 10/05/17 1512 MR#: [id number] Acct: [id number] Name: ALLISON DOSHI Rep #: [id number] : 1975 42 From: Demetrice Victor MD PCP: Donald Henderson MD Status: REG ER - ER Visit Summary Date of Service: 10/05/17 Chief Complaint: Chest pain History of Present Illness: The patient is a 42 F presenting with left lateral chest wall pain. It is worsened with deep inspiration. She denies shortness of breath. Denies change with exertion. Denies cough or fever. She went to urgent care and they were concerned about possibility of PE. She has no PE/DVT risk factors. She is a smoker. She has a family history of early heart disease. No other coronary artery disease risk factors. Physical Examination: Vitals are stable. Patient is afebrile. Alert no acute distress. HEENT exam is unremarkable. Neck is supple. Lungs are clear and equal bilaterally. Mild left lateral chest wall tenderness with no crepitus Heart is regular and tachycardic Abdomen is soft nontender nondistended. No guarding or rebound. Extremities are unremarkable. Skin is warm and dry. No rash. No focal neurologic deficit. Remainder of exam is unremarkable. Emergency Department Course and Treatment: Patient is given Toradol IV. EKG is sinus rhythm rate of 100, no acute ischemic changes. CBC, chemistries unremarkable. Troponin is negative. CTA chest shows no PE or dissection. Repeat troponin was obtained and is negative. She is resting comfortably in the ED on reevaluation. She is advised to follow-up with her primary care physician. Advised return to ED for worsening complaints. Disposition: Discharge home Impression: Left chest wall pain This note was generated with [employer] dictation software. It may contain incorrect words, spelling, and punctuation that were not noted in review of the chart prior to signing ED Disposition - Plan for ED Patient: Chief Complaint: Chest Other Referrals: Donald Henderson MD [Primary Care Provider] - What to do if you have Problems For any increased pain, shortness of breath, bleeding, nausea or vomiting, chest pain, or any unexpected problems, contact your Primary Care Provider. Call [facility] ([phone]) or report to the closest Emergency Room. Call 911 if necessary. 10/05/171926 <Electronically signed by Demetrice Victor MD> Date Demetrice Victor MD Cosigner Signature (If Indicated): Date CC: Donald Henderson MD TROPONIN-I Collected: 10/05/2017 Status: F Source: [place] 6:05 PM [facility] REPOSITORY Order Comment: 'TROP' Serial specimen #1, #2, #3, or #4: 2 TYPE CODE TESTS RESULT OUT OF RANGE REFERENCE UNITS LAB L501.4010 <0.06 ng/mL Normal < 0.02 TROPONIN-I Result Comment: TROPONIN-I EXPECTED VALUES <0.05 NEGATIVE 0.06 - 0.59 AT RISK OF [facility] > OR = 0.60 SUGGEST VA Performed By: #### L501.4010 #### [facility] [address] [place], [address] CBC W/DIFF, AUTOMATED Collected: 10/05/2017 Status: F Source: [place] 3:27 PM [facility] REPOSITORY TYPE CODE TESTS RESULT OUT OF RANGE REFERENCE UNITS LAB L100.1000 4.4-11.0 K/mm3 Normal WBC 7.4 LAB L100.1200 4.2-5.4 M/mm3 Normal RBC 4.40 LAB L100.1300 12.0-15.0 g/dl Normal HGB 14.2 LAB L100.1400 37-47 % Normal HCT 42.4 LAB L100.1500 81-99 fL Normal MCV 96.4 LAB L100.1600 27.0-32.0 pg High MCH 32.3 LAB L100.1700 32-36 g/gl Normal MCHC 33.5 LAB L100.1810 11.6-14.6 % Normal RDW CV 12.2 LAB L100.1820 35.1-43.9 fl Normal RDW SD 42.8 LAB L100.1900 150-450 K/mm3 Normal PLT 216 LAB L100.2000 6.2-12.0 fl Normal MPV 10.6 LAB L100.2100 47-70 % Normal NEUT% 69.1 LAB L100.2200 19-41 % Normal LY% 23.3 LAB L100.2300 0-10 % Normal MONO% 5.3 LAB L100.2400 0-5 % Normal EO% 2.0 LAB L100.2500 0-1 % Normal BASO% 0.3 LAB L100.2550 0.0-0.9 % Normal IM GRAN % 0.000 Result Comment: IG% - Immature Granulocytes (promyelocytes, myelocytes and metamyelocytes) > 1% indicates that a LEFT SHIFT is Present. LAB L100.2620 2.0-7.7 X10 3/uL Normal Absolute Neut 5.1 LAB L100.2720 0.83-4.51 X10 3/ul Normal Absolute Lymph 1.73 Performed By: #### L100.0100 #### [facility] [address] [place], [address] BASIC METABOLIC Collected: 10/05/2017 Status: F Source: [place] PROFILE ([facility]) 3:27 PM [facility] REPOSITORY Order Comment: 'TROP' Serial specimen #1, #2, #3, or #4: 1 TYPE CODE TESTS RESULT OUT OF RANGE REFERENCE UNITS LAB L501.0100 74-106 mg/dL Normal GLU 91 Result Comment: Please note revised GLUCOSE reference range effective 2017. LAB L501.1000 7-18 mg/dL Normal BUN 10 LAB L501.1100 0.55-1.02 mg/dL Normal CREAT,SERUM 0.73 Result Comment: The validity of the calculated GFR AND GFRAA in patients over 70 years has not been determined. Clinical correlation is essential. LAB L501.1110 >60 mL/min Normal EST GFR 93 Result Comment: Non- GFR Calc LAB L501.1115 >60 mL/min Normal EST GFR - AA 113 Result Comment: GFR Calc LAB L501.1255 ml/min Normal Estimated CRCL 76.53 LAB L501.1300 10-20 RATIO Normal BUN/CRE 13.7 LAB L501.2200 8.5-10 mg/dL Normal .1 CA 8.7 LAB L501.5300 136-14 mmol/L Normal 5 NA 139 LAB L501.5600 3.5-5. mmol/L Normal 1 K 3.8 LAB L501.5900 98-107 mmol/L Normal CL 103 LAB L501.6100 21.0-3 mmol/L Normal 2.0 CO2 26.0 LAB L501.6200 5-15 Normal GAP 10 Performed By: #### L500.2500, L501.4010 #### [facility] [address] [facility] [place], [address] TROPONIN-I Collected: 10/05/2017 Status: F Source: [place] 3:27 PM [facility] REPOSITORY Order Comment: 'TROP' Serial specimen #1, #2, #3, or #4: 1 TYPE CODE TESTS RESULT OUT OF RANGE REFERENCE UNITS LAB L501.4010 <0.06 ng/mL Normal < 0.02 TROPONIN-I Result Comment: TROPONIN-I EXPECTED VALUES <0.05 NEGATIVE 0.06 - 0.59 AT RISK OF [facility] > OR = 0.60 SUGGEST VA Performed By: #### L500.2500, L501.4010 #### [facility] [address] [place], [place], [address] CTA CHEST W/WO Observed: 10/05/2017 Status: F Source: [place] CONTRAST 3:10 PM [facility] REPOSITORY [facility] Imaging Services [address] [place] [address] CTA Chest W/WO Contrast MR#: [id number] Acct: [id number] Name: ALLISON DSOHI Rep #: [id number] : 1975 F 42 From: Malena Garcia MD PCP: Donald Henderson MD Status: REG ER Study: CTA Chest W/WO Contrast Date of Exam: 10/05/17 Exam# [id number] Ordering Dr: Demetrice Victor MD STUDY: CTA CHEST REASON FOR EXAM: Female, 42 years old. Chest pain and left rib pain increased with breathing. History of smoking and hypertension. RADIATION DOSAGE (If Supplied By Facility): CTDIvol = ( 6.79 ) mGy, DLP = ( 333.92 ) mGycm TECHNIQUE: The examination was performed with the intravenous administration of 75 ml of Isovue 370 contrast material. Post-processing of the angiographic images was performed, with multiplanar reformation and 3D reconstruction. Individualized dose optimization techniques were used for this CT. COMPARISON: None. FINDINGS: Normal enhancement of the main pulmonary artery and right and left pulmonary arteries. Normal enhancement of the bilateral peripheral pulmonary arteries. There is no demonstrated pulmonary embolism. Normal thoracic aorta without aneurysm. Aberrant right subclavian artery which passes posteriorly to the trachea and esophagus without aneurysm. There is no demonstrated aortic dissection. Normal heart and pericardium. Negative for coronary calcifications. Normal mediastinum. Normal hilar regions. Normal visualized trachea and bronchi. The lungs are well expanded. Normal pulmonary parenchyma. Normal pleura. Bilateral small posterior fatty diaphragmatic hernias/[place] herniations. Normal chest wall structures. Normal osseous structures. Normal visualized upper abdomen. CT/CTA Chest W/WO Contrast IMPRESSION: Negative for pulmonary embolus. Normal thoracic aorta. Aberrant right subclavian artery. Negative for coronary calcifications. No acute pulmonary findings. Negative for pleural effusion. Bilateral small posterior fatty diaphragmatic hernias/[place] herniation. Electronically Signed: Malena Garcia MD at 16:53 EDT , Service support , CC: Demetrice Victor MD; Donald Henderson MD Programmer Operator Numerical Control: Signed PROGRESS Observed: 10/05/2017 Status: COMPLETED Source: [place] 1:53 PM [facility] REPOSITORY HNO ID: [id number] Author: Fadia Villegas Service: (none) Author Type: Nurse Practitioner Type: Progress Notes Filed: 10/05/2017 2:16 PM Note Text: Subjective Patient is a 42 year old female presenting with Eye Problem. The history is provided by the patient. No speech language pathologist assistant was used. Eye Problem Associated symptoms include chest pain (left sided, ? rib). Pertinent negatives include no chills, congestion, coughing, fever, headaches, myalgias, rash or sore throat. HPI Larry Doshi is a 42 year old female who presents today for CC of left sided rib pain This started over the past 3 days and is worsening. she is also having shortness of breath Symptoms are worsened by deep breathing She has tried no treatment or medication Risk factors smoker PMH elevated BP over the past week. BP 148/104 Pulse 92 Temp 37.8 ?C (100 ?F) (Tympanic) Resp 18 Wt 70.8 kg (156 lb) BMI 28.08 kg/m2 PO2 96% ALLERGIES Allergen Reactions - Bactrim [Sulfametho* Rash ACTIVE PROBLEM LIST Lumbago Gerd (Gastroesophageal Reflux Disease) Hidradenitis Suppurativa Tobacco Use Disorder Neck Pain, Chronic Family History Problem Relation Age of Onset - Diabetes Mother - Heart Mother arryhtmia - Cervical Cancer Mother - Diabetes Father [place], - Coronary Artery Disease Father - COPD Father - Hypertension Father - COPD Sister - Hypertension Sister - Hypertension Sister - None Sister Social History Marital status: Spouse name: Years of education: Number of children: 2 Occupational History 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 Negative for chills, fever and malaise/fatigue. HENT: Negative for congestion, ear pain, sinus pain and sore throat. Eyes: Positive for discharge and redness. Respiratory: Negative for cough, sputum production, shortness of breath and wheezing. Cardiovascular: Positive for chest pain (left sided, ? rib). Musculoskeletal: Negative for myalgias. Skin: Negative for rash. Neurological: Negative for headaches. Objective Physical Exam Constitutional: She is well-developed, well-nourished, and in no distress. HENT: Head: Normocephalic and atraumatic. Right Ear: Tympanic membrane, external ear and ear canal normal. Tympanic membrane is not injected, not erythematous, not retracted and not bulging. No middle ear effusion. Left Ear: Tympanic membrane, external ear and ear canal normal. Tympanic membrane is not injected, not erythematous, not retracted and not bulging. No middle ear effusion. Nose: Nose normal. Right sinus exhibits no maxillary sinus tenderness and no frontal sinus tenderness. Left sinus exhibits no maxillary sinus tenderness and no frontal sinus tenderness. Mouth/Throat: Uvula is midline, oropharynx is clear and moist and mucous membranes are normal. No oropharyngeal exudate, posterior oropharyngeal edema, posterior oropharyngeal erythema or tonsillar abscesses. Eyes: EOM are normal. Pupils are equal, round, and reactive to light. Right eye exhibits discharge (clear). Left eye exhibits discharge (clear). Right conjunctiva is injected. Neck: Normal range of motion. Cardiovascular: Normal rate, regular rhythm and normal heart sounds. Pulmonary/Chest: Effort normal and breath sounds normal. No respiratory distress. She has no decreased breath sounds. She has no wheezes. She has no rhonchi. She has no rales. PO2 96% Rib and chest pain not reproducible Lymphadenopathy: Head (right side): No submental, no submandibular, no tonsillar, no preauricular and no posterior auricular adenopathy present. Head (left side): No submental, no submandibular, no tonsillar, no preauricular and no posterior auricular adenopathy present. She has no cervical adenopathy. Right cervical: No posterior cervical adenopathy present. Left cervical: No posterior cervical adenopathy present. Right: No supraclavicular adenopathy present. Left: No supraclavicular adenopathy present. Skin: Skin is warm and dry. Psychiatric: Affect normal. Nursing note and vitals reviewed. ASSESSMENT/PLAN: 1. Chest pain, unspecified type - ICD9: 786.50, ICD10: R07.9 (primary diagnosis) Pain with deep breathing, not reproducible, sent to [place] [facility] for further workup, report called to Tran Soto at [place] [facility] 2. Acute conjunctivitis of both eyes, unspecified acute conjunctivitis type - ICD9: 372.00, ICD10: H10.33 - appears to be allergic - see medication orders - Instructed to call if high fever, development of periorbital redness or swelling, eye pain, visual changes, concerns or if symptoms persist. - KETOTIFEN 0.025 % (0.035 %) EYE DROPS Diagnosis and treatment plan were discussed and questions were answered to the patient's satisfaction. Pt acknowledged understanding of concepts and follow up plan. Specific signs and symptoms that would indicate the need for higher level of care were discussed in detail warranting prompt ER evaluation. Fadia Villegas CNP CNOV Observed: 10/05/2017 Status: COMPLETED Source: [place] 1:45 PM [facility] REPOSITORY Office Visit (W[facility]) LARRY DOSHI ([id number]) 1975 [facility] Date Time Provider Department 10/05/17 1:45 PM FADIA VILLEGAS (SHAHNAZ) WSTR During your visit today, we recorded the following information about you: Temperature Pulse Respiration Blood pressure 100 degrees 92/minute 18/minute 148/104 Weight 70.8 kg Fadia Villegas CNP 10/05/2017 2:16 PM Signed Subjective Patient is a 42 year old female presenting with Eye Problem. The history is provided by the patient. No speech language pathologist assistant was used. Eye Problem Associated symptoms include chest pain (left sided, ? rib). Pertinent negatives include no chills, congestion, coughing, fever, headaches, myalgias, rash or sore throat. HPI Larrydeisy Doshi is a 42 year old female who presents today for CC of left sided rib pain This started over the past 3 days and is worsening. she is also having shortness of breath Symptoms are worsened by deep breathing She has tried no treatment or medication Risk factors smoker PMH elevated BP over the past week. BP 148/104 Pulse 92 Temp 37.8 ?C (100 ?F) (Tympanic) Resp 18 Wt 70.8 kg (156 lb) BMI 28.08 kg/m2 PO2 96% ALLERGIES Allergen Reactions - Bactrim [Sulfametho* Rash ACTIVE PROBLEM LIST Lumbago Gerd (Gastroesophageal Reflux Disease) Hidradenitis Suppurativa Tobacco Use Disorder Neck Pain, Chronic Family History Problem Relation Age of Onset - Diabetes Mother - Heart Mother arryhtmia - Cervical Cancer Mother - Diabetes Father [place], - Coronary Artery Disease Father - COPD Father - Hypertension Father - COPD Sister - Hypertension Sister - Hypertension Sister - None Sister Social History Marital status: Spouse name: Years of education: Number of children: 2 Occupational History 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 Negative for chills, fever and malaise/fatigue. HENT: Negative for congestion, ear pain, sinus pain and sore throat. Eyes: Positive for discharge and redness. Respiratory: Negative for cough, sputum production, shortness of breath and wheezing. Cardiovascular: Positive for chest pain (left sided, ? rib). Musculoskeletal: Negative for myalgias. Skin: Negative for rash. Neurological: Negative for headaches. Objective Physical Exam Constitutional: She is well-developed, well-nourished, and in no distress. HENT: Head: Normocephalic and atraumatic. Right Ear: Tympanic membrane, external ear and ear canal normal. Tympanic membrane is not injected, not erythematous, not retracted and not bulging. No middle ear effusion. Left Ear: Tympanic membrane, external ear and ear canal normal. Tympanic membrane is not injected, not erythematous, not retracted and not bulging. No middle ear effusion. Nose: Nose normal. Right sinus exhibits no maxillary sinus tenderness and no frontal sinus tenderness. Left sinus exhibits no maxillary sinus tenderness and no frontal sinus tenderness. Mouth/Throat: Uvula is midline, oropharynx is clear and moist and mucous membranes are normal. No oropharyngeal exudate, posterior oropharyngeal edema, posterior oropharyngeal erythema or tonsillar abscesses. Eyes: EOM are normal. Pupils are equal, round, and reactive to light. Right eye exhibits discharge (clear). Left eye exhibits discharge (clear). Right conjunctiva is injected. Neck: Normal range of motion. Cardiovascular: Normal rate, regular rhythm and normal heart sounds. Pulmonary/Chest: Effort normal and breath sounds normal. No respiratory distress. She has no decreased breath sounds. She has no wheezes. She has no rhonchi. She has no rales. PO2 96% Rib and chest pain not reproducible Lymphadenopathy: Head (right side): No submental, no submandibular, no tonsillar, no preauricular and no posterior auricular adenopathy present. Head (left side): No submental, no submandibular, no tonsillar, no preauricular and no posterior auricular adenopathy present. She has no cervical adenopathy. Right cervical: No posterior cervical adenopathy present. Left cervical: No posterior cervical adenopathy present. Right: No supraclavicular adenopathy present. Left: No supraclavicular adenopathy present. Skin: Skin is warm and dry. Psychiatric: Affect normal. Nursing note and vitals reviewed. ASSESSMENT/PLAN: 1. Chest pain, unspecified type - ICD9: 786.50, ICD10: R07.9 (primary diagnosis) Pain with deep breathing, not reproducible, sent to [facility] for further workup, report called to Tran Soto at [place] [facility] 2. Acute conjunctivitis of both eyes, unspecified acute conjunctivitis type - ICD9: 372.00, ICD10: H10.33 - appears to be allergic - see medication orders - Instructed to call if high fever, development of periorbital redness or swelling, eye pain, visual changes, concerns or if symptoms persist. - KETOTIFEN 0.025 % (0.035 %) EYE DROPS Diagnosis and treatment plan were discussed and questions were answered to the patient's satisfaction. Pt acknowledged understanding of concepts and follow up plan. Specific signs and symptoms that would indicate the need for higher level of care were discussed in detail warranting prompt ER evaluation. SHAHNAZ Abdullahi CNP 10/05/2017 2:15 PM Signed ASSESSMENT/PLAN: 1. Chest pain, unspecified type - ICD9: 786.50, ICD10: R07.9 (primary diagnosis) Pain with deep breathing, not reproducible, sent to [place] [facility] for further workup, report called to Tran Soto at [place] [facility] 2. Acute conjunctivitis of both eyes, unspecified acute conjunctivitis type - ICD9: 372.00, ICD10: H10.33 - appears to be allergic - see medication orders - Instructed to call if high fever, development of periorbital redness or swelling, eye pain, visual changes, concerns or if symptoms persist. - KETOTIFEN 0.025 % (0.035 %) EYE DROPS Referring Provider: SELF [200] Allergies As of Date: 10/05/2017 Noted Allergy Reaction BACTRIM (SULFAMETHOXAZOLE) 12/13/2011 2 - Rash Date Reviewed: 10/05/2017 Reviewed by: Malena Fish LPN - Fully Assessed Reason for Visit: Eye Problem [43] Cmt: B/L eye red and draining Primary Visit Diagnosis:Chest pain, unspecified type [R07.9] Other Visit Diagnosis:Acute conjunctivitis of both eyes, unspecified acute conjunctivitis type [H10.33] Order(s):ketotifen fumarate (ZADITOR) 0.025 % (0.035 %) ophthalmic solutionUse 1 Drop in both eyes twice daily.Disp: 1 BottleRfl: 1 Prescriptions as of 10/05/2017 Sig: PANTOPRAZOLE 40 MG TABLET,DEL* Take 1 tablet by mouth once d* GABAPENTIN 600 MG TABLET Take 600 mg by mouth three ti* KETOTIFEN 0.025 % (0.035 %) E* Use 1 Drop in both eyes twice* BUPROPION HCL SR 150 MG TABLE* Take 1 tablet by mouth twice * ALBUTEROL SULFATE HFA 90 MCG/* Inhale 2 Puffs as instructed * SUCRALFATE 1 GRAM TABLET Take 1 tablet by mouth twice * ALBUTEROL SULFATE HFA 90 MCG/* Inhale 2 Puffs as instructed * Medication notes this encounter BUPROPION HCL SR 150 MG TABLET,12 HR SUSTAINED-RELEASE >> Malena Fish CONFIGURATION MANAGEMENT ADVISOR 10/05/2017 1:45 PM >> FISHMALENA LPN FriOct 05, 2017 1:45 PM Not Started yet ALBUTEROL SULFATE HFA 90 MCG/ACTUATION AEROSOL INHALER >> Malena Montoyaner CONFIGURATION MANAGEMENT ADVISOR 10/05/2017 1:45 PM >> MALENA FISH LPN [place] Oct 05, 2017 1:45 PM Not taking Problem List As Of Date 10/05/2017 Noted Resolved Lumbago [M54.5] INVALID FOR* GERD (gastroesophageal reflux disease) [K21.9] INVALID FOR* Hidradenitis suppurativa [L73.2] INVALID FOR* Spondylolisthesis [M43.10] INVALID FOR*09/23/2017 Tobacco abuse [Z72.0] INVALID FOR*09/23/2017 PONV (postoperative nausea and vomiting) [R11.2*INVALID FOR*08/21/2016 Esophageal reflux [K21.9] INVALID FOR*01/05/2015 Neck pain [M54.2] INVALID FOR*09/23/2017 Closed fracture of cervical vertebra (HCC) [S12*INVALID FOR*09/23/2017 Tobacco use disorder [F17.200] INVALID FOR* Neck pain, chronic [M54.2, G89.29] INVALID FOR* Other instructions from your clinician: ASSESSMENT/PLAN: 1. Chest pain, unspecified type - ICD9: 786.50, ICD10: R07.9 (primary diagnosis) Pain with deep breathing, not reproducible, sent to [facility] for further workup, report called to Tran Soto at [place] [facility] 2. Acute conjunctivitis of both eyes, unspecified acute conjunctivitis type - ICD9: 372.00, ICD10: H10.33 - appears to be allergic - see medication orders - Instructed to call if high fever, development of periorbital redness or swelling, eye pain, visual changes, concerns or if symptoms persist. - KETOTIFEN 0.025 % (0.035 %) EYE DROPS Prescriptions ordered this encounter Disp Refills Start End KETOTIFEN 0.025 % (0.035 %) EYE DROPS 1 Todd* 1 10/05/2017 Route: BOTH EYES Sig: Use 1 Drop in both eyes twice daily. Encounter Status:Closed by FADIA VILLEGAS CNP on 10/05/17 BASIC METABOLIC PANL Collected: 09/25/2017 Status: F Source: [place] 4:59 PM [facility] REPOSITORY TYPE CODE TESTS RESULT OUT OF REFERENCE UNITS RANGE LAB GLU 74-99 mg/dL Glucose 93 Result Comment: The [place] [employer] (ADA) provides guidance for cutoff values for fasting glucose and random glucose. The ADA defines fasting as no caloric intake for at least 8 hours. Fas ting plasma glucose results between 100 to 125 mg/dL indicate increased risk for diabetes (prediabetes). Fasting plasma glucose results greater than or equal to 126 mg/dL meet the criteria for diagnosis of diabetes. In the absence of unequivocal hyperglycemia, results should be confirmed by repeat testing. In a patient with classic symptoms of hyperglycemia or hyperglycemic crisis, random plasma glucose results greater than or equal to 200 mg/dL meet the criteria for diagnosis of diabetes. Reference: Standards of Medical Care in Diabetes 2016, [place] [employer]. Diabetes Care. 2016.39(Suppl 1). LAB BUN 7-21 mg/dL BUN 9 LAB CRET 0.58-0.96 mg/dL Creatinine 0.77 LAB NA 136-144 mmol/L Sodium 139 LAB K 3.7-5.1 mmol/L Potassium 4.3 LAB CL 97-105 mmol/L Chloride 101 LAB CO2 22-30 mmol/L CO2 27 LAB AGAP 9-18 mmol/L Anion Gap 11 LAB CA 8.5-10.2 mg/dL Calcium, Total 9.4 LAB GFRAA eGFR- Amer. >60 LAB GFRNAA . eGFR-All Other Races >60 Result Comment: eGFR (Estimated GFR) Units of measure: mL/min/1.73 meters squared eGFR is derived from the reexpressed MDRD Study equation using the following parameters: serum creatinine, age, gender and race. The creatinine assay has been calibrated to be traceable to IDMS. An eGFR <60 mL/min/1.73m2 for >3 months is consistent with chronic kidney disease. Refer to KDOQI guidelines for clinical interpretation. In patients with unstable renal function, e.g. those with acute kidney injury, the eGFR may not accurately reflect actual GFR. Performed By: #### BMP, CBCDIF #### [facility] [address] [address] CBC AND DIFFERENTIAL Collected: 09/25/2017 Status: F Source: [place] 4:59 PM [facility] REPOSITORY TYPE CODE TESTS RESULT OUT OF REFERENCE UNITS RANGE LAB WBC 3.70-11.00 k/uL WBC 6.66 LAB RBC 3.90-5.20 m/uL RBC 4.27 LAB HGB 11.5-15.5 g/dL Hemoglobin 13.8 LAB HCT 36.0-46.0 % Hematocrit 41.7 LAB MCV 80.0-100.0 fL MCV 97.7 LAB MCH 26.0-34.0 pG MCH 32.3 LAB MCHC 30.5-36.0 g/dL MCHC 33.1 LAB RDWCV 11.5-15.0 % RDW-CV 12.1 LAB PLTCT 150-400 k/uL Platelet Count 240 LAB MPV 9.0-12.7 fL MPV 11.2 LAB ANEUT % Neut% 54.1 LAB AANEUT 1.45-7.50 k/uL Abs Neut 3.60 LAB ALYMP % Lymph% 34.7 LAB AALYMP 1.00-4.00 k/uL Abs Lymph 2.31 LAB AMONO % [place]% 7.4 LAB AAMONO <0.87 k/uL Abs [place] 0.49 LAB AEOS % Eosin% 3.2 LAB AAEOS <0.46 k/uL Abs Eosin 0.21 LAB ABASO % Baso% 0.6 LAB AABASO <0.11 k/uL Abs Baso 0.04 LAB AUNRBC 0 /100 WBC NRBCs 0.0 LAB ABNRBC <0.01 k/uL Absolute nRBC <0.01 LAB DTYP DTYPE Auto Diff Performed By: #### BMP, CBCDIF #### [facility] [address] [place], [place] [address] PROGRESS Observed: 09/23/2017 Status: COMPLETED Source: [place] 3:46 PM [facility] REPOSITORY HNO ID: [id number] Author: Donald Henderson Service: (none) Author Type: Physician Type: Progress Notes Filed: 09/23/2017 3:53 PM Note Text: This note was created using NoteWriter. Subjective Larry Doshi is a 42 year old female was here for medication refill. Her GERD was controlled, but medication dependent. Symptoms recur when she skips pantoprazole for a few days and were moderately severe, with nausea. Sucralfate was used as needed. She followed with Dr. Salinas for pain management. Her lumbago was chronic, and her neck pain with radiation to both arms were more bothersome. She was in the process of seeing Dr. Josselin Conteh for a second opinion, as Dr. [facility] of [facility] had no further recommendations. She was interested in smoking cessation. Chantix was effective in the past, but side effects were significant. Her blood pressure had been elevating this past year, when checked at her pain specialist. 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 Take on empty stomach, 1/2 hr before meal. sucralfate (CARAFATE) 1 gram tablet Take 1 tablet by mouth twice daily as needed (acid indigestion.). gabapentin (NEURONTIN) 600 mg tablet Take 600 mg by mouth three times daily. Per Dr. Salinas buPROPion SR (WELLBUTRIN SR) 150 mg 12 hr tablet Take 1 tablet by mouth twice daily. albuterol HFA (VENTOLIN HFA) 90 mcg/actuation inhaler Inhale 2 Puffs as instructed every 4 hours as needed for Wheezing/Shortness of Breath. albuterol HFA (VENTOLIN HFA) 90 mcg/actuation inhaler Inhale 2 Puffs as instructed every 6 hours as needed (cough). No current facility-administered medications for this visit. Review of Systems Constitutional: Negative. Respiratory: Positive for cough. Negative for shortness of breath and wheezing. Cardiovascular: Negative. Gastrointestinal: Negative. Musculoskeletal: Positive for back pain and neck pain. Neurological: Positive for numbness. Objective BP 132/92 (BP Site: Left Arm, BP Position: Sitting, BP Cuff Size: Regular Adult) Pulse 92 Resp 16 Wt 69.4 kg (153 lb) BMI 27.54 kg/m2 Physical Exam Constitutional: She appears well-nourished. No distress. Eyes: Conjunctivae are normal. Cardiovascular: Regular rhythm. Pulmonary/Chest: Breath sounds normal. Abdominal: Soft. There is no tenderness. Musculoskeletal: She exhibits no edema. Neurological: She is alert. Coordination normal. ASSESSMENT/PLAN: 1. Tobacco use disorder - ICD9: 305.1, ICD10: F17.200 (primary diagnosis) - Cessation encouraged. - Prescription for bupropion (Wellbutrin) given - BUPROPION HCL SR 150 MG TABLET,12 HR SUSTAINED-RELEASE - Discussed medication dosage, usage, goals of therapy, and side effects. - Options were reviewed, and she preferred not to try Chantix again. 2. Gastroesophageal reflux disease, esophagitis presence not specified - ICD9: 530.81, ICD10: K21.9 Controlled. - PANTOPRAZOLE 40 MG TABLET,DELAYED RELEASE 3. Elevated blood pressure reading - ICD9: 796.2, ICD10: R03.0 - Encouraged dietary sodium restriction/DASH diet - Reviewed risks of HTN and principles of treatment - Goal of BP <130/80 - BASIC METABOLIC PNL - CBC + DIFF - Information given. 4. Neck pain, chronic - ICD9: 723.1, 338.29, ICD10: M54.2, G89.29 Per pain management and orthopedics. - GABAPENTIN dose updated. Donald Henderson MD CNOV Observed: 09/23/2017 Status: COMPLETED Source: [place] 2:40 PM [facility] REPOSITORY Office Visit (INTMWS) LARRY DOSHI ([id number]) 1975 F [place] Date Time Provider Department 09/23/17 2:40 PM DONALD HENDERSON During your visit today, we recorded the following information about you: Pulse Respiration Blood pressure Weight 92/minute 16/minute 132/92 69.4 kg Donald Henderson MD 09/23/2017 3:53 PM Signed This note was created using [employer]ial Fusion [employer]. Subjective Larry Doshi is a 42 year old female was here for medication refill. Her GERD was controlled, but medication dependent. Symptoms recur when she skips pantoprazole for a few days and were moderately severe, with nausea. Sucralfate was used as needed. She followed with Dr. Salinas for pain management. Her lumbago was chronic, and her neck pain with radiation to both arms were more bothersome. She was in the process of seeing Dr. Josselin Conteh for a second opinion, as Dr. [facility] of the [facility] had no further recommendations. She was interested in smoking cessation. Chantix was effective in the past, but side effects were significant. Her blood pressure had been elevating this past year, when checked at her pain specialist. 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 Take on empty stomach, 1/2 hr before meal. sucralfate (CARAFATE) 1 gram tablet Take 1 tablet by mouth twice daily as needed (acid indigestion.). gabapentin (NEURONTIN) 600 mg tablet Take 600 mg by mouth three times daily. Per Dr. Salinas buPROPion SR (WELLBUTRIN SR) 150 mg 12 hr tablet Take 1 tablet by mouth twice daily. albuterol HFA (VENTOLIN HFA) 90 mcg/actuation inhaler Inhale 2 Puffs as instructed every 4 hours as needed for Wheezing/Shortness of Breath. albuterol HFA (VENTOLIN HFA) 90 mcg/actuation inhaler Inhale 2 Puffs as instructed every 6 hours as needed (cough). No current facility-administered medications for this visit. Review of Systems Constitutional: Negative. Respiratory: Positive for cough. Negative for shortness of breath and wheezing. Cardiovascular: Negative. Gastrointestinal: Negative. Musculoskeletal: Positive for back pain and neck pain. Neurological: Positive for numbness. Objective BP 132/92 (BP Site: Left Arm, BP Position: Sitting, BP Cuff Size: Regular Adult) Pulse 92 Resp 16 Wt 69.4 kg (153 lb) BMI 27.54 kg/m2 Physical Exam Constitutional: She appears well-nourished. No distress. Eyes: Conjunctivae are normal. Cardiovascular: Regular rhythm. Pulmonary/Chest: Breath sounds normal. Abdominal: Soft. There is no tenderness. Musculoskeletal: She exhibits no edema. Neurological: She is alert. Coordination normal. ASSESSMENT/PLAN: 1. Tobacco use disorder - ICD9: 305.1, ICD10: F17.200 (primary diagnosis) - Cessation encouraged. - Prescription for bupropion (Wellbutrin) given - BUPROPION HCL SR 150 MG TABLET,12 HR SUSTAINED-RELEASE - Discussed medication dosage, usage, goals of therapy, and side effects. - Options were reviewed, and she preferred not to try Chantix again. 2. Gastroesophageal reflux disease, esophagitis presence not specified - ICD9: 530.81, ICD10: K21.9 Controlled. - PANTOPRAZOLE 40 MG TABLET,DELAYED RELEASE 3. Elevated blood pressure reading - ICD9: 796.2, ICD10: R03.0 - Encouraged dietary sodium restriction/DASH diet - Reviewed risks of HTN and principles of treatment - Goal of BP ANDlt;130/80 - BASIC METABOLIC PNL - CBC + DIFF - Information given. 4. Neck pain, chronic - ICD9: 723.1, 338.29, ICD10: M54.2, G89.29 Per pain management and orthopedics. - GABAPENTIN dose updated. Donald Henderson MD Referring Provider: SELF [200] Allergies As of Date: 09/23/2017 Noted Allergy Reaction BACTRIM (SULFAMETHOXAZOLE) 12/13/2011 2 - Rash Date Reviewed: 08/07/2017 [facility]: [facility] Nelly - Fully Assessed Primary Visit Diagnosis:Tobacco use disorder [F17.200] Other Visit Diagnoses:Gastroesophageal reflux disease, esophagitis presence not specified [K21.9] Elevated blood pressure reading [R03.0] Neck pain, chronic [M54.2, G89.29] Order(s):pantoprazole DR (PROTONIX) 40 mg tabletTake 1 tablet by mouth once daily. Take on empty stomach, 1/2 hr before meal.Disp: 90 tabletRfl: 3 buPROPion SR (WELLBUTRIN SR) 150 mg 12 hr tabletTake 1 tablet by mouth twice daily.Disp: 60 tabletRfl: 0 BASIC METABOLIC PNL [SQBMP] Order #: [id number] FUTURE CBC + DIFF [SQCBCDIF] Order #: [id number] FUTURE Prescriptions as of 09/23/2017 Sig: PANTOPRAZOLE 40 MG TABLET,DEL* Take 1 tablet by mouth once d* SUCRALFATE 1 GRAM TABLET Take 1 tablet by mouth twice * GABAPENTIN 600 MG TABLET Take 600 mg by mouth three ti* BUPROPION HCL SR 150 MG TABLE* Take 1 tablet by mouth twice * ALBUTEROL SULFATE HFA 90 MCG/* Inhale 2 Puffs as instructed * ALBUTEROL SULFATE HFA 90 MCG/* Inhale 2 Puffs as instructed * Problem List As Of Date 09/23/2017 Noted Resolved Lumbago [M54.5] INVALID FOR* GERD (gastroesophageal reflux disease) [K21.9] INVALID FOR* Hidradenitis suppurativa [L73.2] INVALID FOR* Spondylolisthesis [M43.10] INVALID FOR*09/23/2017 Tobacco abuse [Z72.0] INVALID FOR*09/23/2017 PONV (postoperative nausea and vomiting) [R11.2*INVALID FOR*08/21/2016 Esophageal reflux [K21.9] INVALID FOR*01/05/2015 Neck pain [M54.2] INVALID FOR*09/23/2017 Closed fracture of cervical vertebra (HCC) [S12*INVALID FOR*09/23/2017 Tobacco use disorder [F17.200] INVALID FOR* Neck pain, chronic [M54.2, G89.29] INVALID FOR* Prescriptions ordered this encounter Disp Refills Start End PANTOPRAZOLE 40 MG TABLET,DELAYED RE* 90 t* 3 09/23/2017 Route: ORAL Sig: Take 1 tablet by mouth once daily. Take on empty stomach, 1/2 hr before meal. BUPROPION HCL SR 150 MG TABLET,12 HR* 60 t* 0 09/23/2017 Route: ORAL Sig: Take 1 tablet by mouth twice daily. Medications Discontinued During This Encounter sucralfate (CARAFATE) 1 gram tablet 06/13/2017 09/23/2017 Class: Historical Med Sig: TWICE A DAY Disc: Reason for discontinue is not on file. Vfcvbssaiypxqno-Uhtedtwfn-NA (BROMFE* 120 * 0 08/07/2017 09/23/2017 Route: ORAL Sig: Take 5 mL by mouth four times daily as needed. Disc: Reason for discontinue is not on file. calcium citrate-vitamin D3 (CITRACAL* 0 08/21/2016 09/23/2017 Class: Historical Med Route: ORAL Sig: Take 1 tablet by mouth three times daily with meals. Disc: Reason for discontinue is not on file. predniSONE (DELTASONE) 20 mg tablet 10 t* 0 08/07/2017 09/23/2017 Sig: Prednisone 40 mg (2-20mg tablets) po QD for 5 days Disc: Reason for discontinue is not on file. gabapentin (NEURONTIN) 300 mg capsule 06/13/2017 09/23/2017 Class: Historical Med Sig: THREE TIMES A DAY Disc: Reason for discontinue is not on file. multivitamin tablet 0 08/21/2016 09/23/2017 Class: Historical Med Route: ORAL Sig: Take 1 tablet by mouth once daily. Disc: Reason for discontinue is not on file. pantoprazole DR (PROTONIX) 40 mg tab* 60 t* 0 07/08/2016 09/23/2017 Route: ORAL Sig: Take 1 tablet by mouth twice daily for 30 days. Take on empty stomach, 1/2 hr before meal. Disc: Reason for discontinue is not on file. pantoprazole DR (PROTONIX) 40 mg tab* 90 t* 1 03/31/2017 09/23/2017 Route: ORAL Sig: Take 1 tablet by mouth once daily. Take on empty stomach, 1/2 hr before meal. Disc: Reason for discontinue is not on file. Disposition: Return in about 4 weeks (around 10/21/2017). Follow-up and Disposition History Recorded Letter Text [place] [address] [place] [address] HOW TO CUT BACK ON SALT CONSUMPTION Here are the following guidelines to help reduce the amount of sodium in your diet Take the salt shaker off the table and omit salt from recipes and food preparation. Cook without salt or with only small amounts of added salt. Learn to enjoy the flavors of unsalted foods. Try flavoring foods with herbs, spices, and lemon juice. Read food labels carefully to determine the amounts of sodium. Learn to recognize ingredients that contain sodium. Salt, soy sauce, salt brine or any ingredient with sodium (such as monosodium glutamate) or baking soda (sodium bicarbonate) as part of its name contains sodium. Rinsing canned vegetables and fish will remove much of the salt. Season or marinate meat, poultry, and fish ahead of time with onion, garlic and your favorite herbs before cooking to bring out the flavor. Some terms describing sodium content: lite, light, lightly salted, low sodium, reduced sodium, sodium free, unsalted, no salt added, without salt added, very low sodium. Use lower sodium products, when available, to replace those with higher sodium content. Use simple techniques like saving chicken broth from a chicken you cook at home rather than buying a canned, powdered or bouillon cube broth. When dining out words that signal high sodium include: smoked, barbecued, pickled, broth, soy sauce, teriyaki, creole sauce, marinated, cocktail sauce, tomato base, Parmesan, and mustard sauce. FOODS RECOMMENDED FOODS TO AVOID MILK AND DAIRY 2-3 servings each day All milk and milk products, except buttermilk Cream cheese Low sodium cheeses Yogurt MILK AND DAIRY Buttermilk Cheese ([place], [place], Cheddar, Blue, Gouda, [place], Velveeta) Cheese spreads FRUIT AND VEGETABLES 5-9 servings/day Fresh or frozen vegetables No added salt or low salt canned vegetables No added salt tomato products Salt-free vegetable juices All fruit and fruit juices FRUIT AND VEGETABLES Canned vegetables Frozen vegetables with seasoning and sauces Pickle relish, sweet or sour Pickled Vegetables Pickles and others prepared in brine Sauerkraut Vegetable or tomato juices, canned or bottled Pickled Fruits BREADS AND GRAINS 6-11 servings/day Bread and rolls Dry and cooked cereals Pancakes, waffles Potatoes Salt-free potato chips Salt-free pretzels/snack chips Rice, barley, noodles, spaghetti, macaroni and other pastas Tortillas Unsalted crackers Unsalted popcorn BREADS AND GRAINS Breads and rolls with salted tops Instant hot cereals Instant Food Products (e.g., cereals, pasta mixes, potatoes, rice, etc.) Such as boxed mixes like rice, scalloped potatoes, macaroni and cheese Popcorn, Prepackaged Microwave Salted popcorn Saltines, potato chips, pretzels, snack chips, pork rinds MEATS AND MEAT SUBSTITUTES 2-3 servings or total of 6 oz daily All fresh and fresh frozen meats (poultry, fish, shellfish, beef, pork, tavares) Canned unsalted tuna fish Dried peas and beans Eggs Low sodium peanut butter Unsalted nuts Unsalted soybeans and other meat substitutes MEATS AND MEAT SUBSTITUTES Cured, salted, canned or smoked meats, poultry, or fish such as corned beef, ham, villanueva, luncheon meats, beef jerky, bologna, pork rinds, hogmaws, ribs, chitterlings, frankfurter, sausage, chorizo, canned fish like tuna, sardines, mackerel, anchovies, caviar, salted cod, casas, sardines, lox, dry fish, and kippered salmon Dried Fish, Assorted (e.g., dried shrimp) Frozen pizza Frozen prepared meat entree dinners such as pot pies, macaroni and cheese Kosher meats Pickled Meats Regular peanut butter Salted nuts Soups Homemade soups, made with allowed ingredients Unsalted broth or bouillon Low sodium commercial soup Soups Broth and soups with added salt Regular canned soups Regular instant soups Regular bouillon cubes FATS AND SNACKS (use sparingly) Margarine, vegetable oils and lard Unsalted gravies Unsalted butter Mayonnaise, sour cream Salt-free salad dressings Homemade salad dressings, made without added salt Whipping cream Sugar, honey, jelly, jam, syrup, candies Popsicle?s, fruit ice, sherbet, fruit sorbet, marshmallows Homemade cookies, pies, cakes made with allowed ingredients FATS AND SNACKS Butter Commercial salad dressings Cheese-based dressings Villanueva fat, fatback, salt pork Salad dressing mixes Olives, green and black Prepared frozen cream pies and cheese cake Instant pudding mixes Commercially prepared baked goods (Cakes, cookies, pie) Salted nuts MISC. Allspice, Mustard (dry) [place] Extract Basil [place] Leaves Capello's Nigerian Style Seasoning Damion Seeds Chives Cider Vinegar Cinnamon Andersen Powder [place] Crystal Dill Garlic Powder Sabra Herbal Seasonings: Odilon's Seasoned Pepper Odilon's Seasoning (no salt) Lemon Juice Mace Mrs. Dash Nutmeg Onion Powder Paprika Parsley Parsley Patch Peppermint Extract Pimento Roseann Hernan Salt free seasoning blends Savory Sodium-free Baking Powder Thyme Turmeric Vinegar Norberto's all-purpose Seasonings MISC. Accent Anette-[place]str[place] All commercially prepared and convenience foods such as TV dinners, box mixes, canned entrees, Hamburger [place], meat pies, Greenlandic dinners, pizza, Shake'n Bake mixes BBQ sauce Celery salt [place] sauce Garlic salt Horseradish Kitchen Bouquet Lemon pepper Marinade sauce Meat tenderizers Monosodium Glutamate (MSG) Onion salt Republican spreads Regular ketchup Relish Salad dressings Salt Seasoning salts Sodium Benzoate Sodium Caseinate Sodium Citrate Sodium Nitrate Sodium Phosphate Sodium Propionate Sodium Saccharin Soy sauce Steak sauce Tartar sauce Teriyaki sauce [facility] sauce Labeled no salt Products, Assorted [e.g., wagner paste and sauces, oriental dried plums and other dried seeds, vegetables and fruits (lemon AND sabra)] Encounter Status:Closed by DOANLD HENDERSON MD on 09/23/17 MRI CERVICAL SPINE Observed: 08/13/2017 Status: F Source: [facility] W/O CONTRAST 4:04 PM HEALTH SYSTEM REPOSITORY Performed at [facility] APPROVED BY: Joey Washington MD EXAMINATION: MRI CERVICAL SPINE WITHOUT CONTRAST CLINICAL HISTORY: Other close nondisplaced fracture of seventh cervical vertebra with routine healing, subsequent encounter. S12.521J . TECHNIQUE: Routine cervical spine MR protocol without gadolinium. COMPARISON: MRI cervical spine 01/07/2017. RESULT: Counting reference: Craniocervical junction. Alignment: Alignment is within normal limits. Craniocervical junction: Craniocervical junction is within normal limits. Cord: The visualized cord is within normal limits of signal intensity and morphology. Bone marrow signal/fracture: Chronic axgd-ff-arwphbqu superior C7 endplate compression fracture deformity, unchanged. Minimal retropulsion of C7. Mild chronic superior endplate compression deformity o f T2, unchanged. No evidence of pathologic marrow infiltration. No other evidence of prior fracture. Cervical soft tissues: The paraspinal soft tissues are within normal limits. 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 C2-C3: Canal and foramina are patent. C3-C4: Canal and foramina are patent. C4-C5: Canal and foramina are patent. C5-C6: Mild disc bulge with borderline central canal stenosis. Mild bilateral neural foraminal narrowing. C6-C7: Borderline cyst canal stenosis at superior C7 level due to retropulsion. Otherwise no central canal stenosis or neural foraminal narrowing. C7-T1: Canal and foramina are patent. IMPRESSION: Stable chronic compression deformities of C7 and T2 superior endplates. Borderline central canal stenosis C5-C6 level and mild bilateral neural foraminal narrowing due to disc bulging. Borderline central canal stenosis superior C7 level due to minimal retropulsion. No significant interval change compared to 01/07/2017. ALLERGIES ALLERGIES DATE TYPE / NAME / CODE REACTION SEVERITY SOURCE CODE 07/03/2018 Drug Sulfa (Sulfonamide Rash Unknown [place] Allergy/41 Antibiotics)/[id number] [facility] [id number]([facility]) Repository 01/09/2018 DRUG BUPROPION HCL OTHER: [place] INGREDI/41 Clinic Other [id number]([place] [facility]) Repository 12/13/2011 DRUG SULFAMETHOXAZOLE RASH [facility] INGREDI/41 Clinic Other [id number]([facility]) Repository [id number] SULFAMETHOXAZOLE [place] [facility] 06[facility] [employer] [facility]) Repository ENCOUNTERS ENCOUNTERS ADMIT/DISCHARGE ACCOUNT NUMBER ADMITTING ENCOUNTER LOCATION SOURCE CLASS 07/16/2018/07/16/20 [id number] Ambulatory BMSBuilding: [address] Repository 07/03/2018/07/03/20 [id number] Emergency [address] ding:ED Repository 03/20/2018/03/25/20 [id number] Ambulatory [address] [place] Repository 02/26/2018/02/27/20 [id number] Ambulatory [address] [place] Repository 02/23/2018/02/25/20 [id number] Ambulatory [address] [place] Repository 02/17/2018/02/18/20 [id number] Ambulatory [address] [place] Repository 02/02/2018/02/04/20 [id number] Ambulatory [address] [place] Repository 01/19/2018 [id number] LARR[place], Ambulatory [facility] Other [place] Repository 01/09/2018/01/10/20 [id number] Ambulatory [address] [place] Repository 12/23/2017/12/25/19 [id number] Ambulatory [address] [place] Repository 12/18/2017/12/19/19 [id number] Ambulatory [address] [place] Repository 11/25/2017/11/26/19 [id number] Ambulatory [address] [place] Repository 11/24/2017/11/26/19 [id number] Ambulatory [address] [place] Repository 11/23/2017/11/26/19 [id number] Ambulatory [address] [place] Repository 11/11/2017/11/13/19 [id number] Ambulatory [address] [place] Repository 11/04/2017 [id number] Ambulatory General acute hospital ding:PSN Repository 11/04/2017 [id number] Ambulatory BMSBuilding: [facility] Repository 11/04/2017/11/05/19 [id number] Emergency [place] [facility] ding:ED Repository 11/04/2017/11/06/19 [id number] Ambulatory [address] Repository 10/31/2017/11/01/19 [id number] Emergency [address] ding:ED Repository 10/30/2017/10/31/19 [id number] Ambulatory BMSBuilding: [place] [facility] Repository 10/23/2017/10/24/19 [id number] Ambulatory [address] Repository 10/14/2017 [id number] Ambulatory General acute hospital ding:HPRAD Repository 10/14/2017/10/15/19 [id number] Ambulatory BMSBuilding: [place] [facility] Repository 10/05/2017/10/06/19 [id number] Emergency [address] ding:ED Repository 10/05/2017/10/07/19 [id number] Ambulatory [address] [facility] [place] [facility] 09/25/2017/09/26/19 [id number] Ambulatory [address] [facility] [place] [facility] 09/23/2017/09/25/19 [id number] Ambulatory [address] [place] [facility] 08/13/2017 [id number] Ambulatory [facility] [place] [facility] 08/13/2017 [id number] Ambulatory [facility] MEDICAL Repository CENTERBuildi ng:[facility] PAYERS PAYERS ENCOUNTER GUARANTOR PAYER SUBSCRIBER SOURCE 07/16/2018 BOBBIJO A Primary BOBBIJO A [place] [id number] Insurance:CARESOURCEP BENNETTDOB: [facility] RAJIV [facility] Number: [id number] [id number] Repository [address]Hxu: 330) Date:2018-07-01 O [address]ATTN: [place] [address]QC: 07/16/2018 Secondary NOT GIVENUNK Jerzy Insurance:SELF PAY [facility] Number: Effective Repository Date:2018-07-15 07/03/2018 BOBBIJO A Primary BOBBIJO A [place] [id number] Insurance:CARESOURCEP BENNETTDOB: Community HANK CARDOZA olicy Number: [id number] [id number] Repository [address]Puh: (330) Date:2018-07-03 O () [address]ATTN: [place] [address]XB: 07/03/2018 Secondary NOT GIVENUNK Jerzy Insurance:SELF PAY [facility] Number: Effective Repository Date:2018-07-03 11/04/2017 BOBBIJO A Primary BOBBIJO A [place] [id number] Insurance:CARESOURCEP BENNETTDOB: [facility] HANK CARDOZA olicy Number: [id number] [id number] Repository [address]Cjd: (330) Date:2017-11-04 O () [address]ATTN: [place] [address]NF: 11/04/2017 Secondary NOT GIVENUNK Jerzy Insurance:SELF PAY [facility] Number: Effective Repository Date:2017-11-04 11/04/2017 BOBBIJO A Primary BOBBIJO A [place] [id number] Insurance:CARESOURCEP BENNETTDOB: [facility] HANK CARDOZA olicy Number: [id number] [id number] Repository [address]Msc: (330) Date:2017-11-04 O () [address]ATTN: [place] [address]NW: 11/04/2017 Secondary NOT GIVENUNK Jerzy Insurance:SELF PAY [facility] Number: Effective Repository Date:2017-11-04 11/04/2017 BOBBIJO A Primary BOBBIJO A [place] [id number] Insurance:CARESOURCEP BENNETTDOB: Community HANK BEGUMAPT olicy Number: [id number] [id number] Repository [address]Iof: (330) Date:2017-11-04 O () [address]ATTN: [place] [address]CG: 11/04/2017 Secondary NOT GIVENUNK [place] Insurance:SELF PAY [facility] Number: Effective Repository Date:2017-11-04 10/31/2017 BOBBIJO A Primary BOBBIJO A [place] [id number] Insurance:CARESOURCEP BENNETTDOB: Community [address] olicy Number: [id number] [id number] Repository [address]Bgn: (330) Date:2017-10-31P [address] () [address]ATTN: [place] [address]OV: 10/31/2017 Secondary NOT GIVENUNK [place] Insurance:SELF PAY [facility] Number: Effective Repository Date:2017-10-31 10/30/2017 BOBBIJO A Primary BOBBIJO A [place] [id number] Insurance:CARESOURCEP BENNETTDOB: Community MCKINNEY RAJIV olicy Number: [id number] [id number] Repository [address]Rou: (330) Date:2017-10-14P O () [address]ATTN: [place] [address]UC: 10/30/2017 Secondary NOT GIVENUNK Jerzy Insurance:SELF PAY [facility] Number: Effective Repository Date:2017-10-30 10/14/2017 BOBBIJO A Primary BOBBIJO A [place] [id number] Insurance:CARESOURCEP BENNETTDOB: Community [address] olicy Number: [id number] [id number] Repository [address]Dqq: (330) Date:2017-10-14P O () [address]ATTN: [place] [address]QS: 10/14/2017 Secondary NOT GIVENUNK [place] Insurance:SELF PAY [facility] Number: Effective Repository Date:2017-10-14 10/14/2017 BOBBIJO A Primary BOBBIJO A [place] [id number] Insurance:CARESOURCEP BENNETTDOB: Community HANK riverracquelrodo Number: [id number] [id number] Repository [address]Coc: (330) Date:2017-08-25P O () [address]ATTN: [place] [address]RU: 10/14/2017 Secondary NOT GIVENUNK Jerzy Insurance:SELF PAY [facility] Number: Effective Repository Date:2017-08-25 10/05/2017 BOBBIJO A Primary BOBBIJO A [place] [id number] Insurance:CARESOURCEP BENNETTDOB: [facility] Mckinney Rajiv racquel Number: [id number] [id number] Repository [address]Lhp: (330) Date:2017-10-05P O () [address]ATTN: [place] [address]ZO: 10/05/2017 Secondary NOT GIVENUNK [place] Insurance:SELF PAY [facility] Number: Effective Repository Date:2017-10-05 08/13/2017 LARRY J Primary LARRY J [facility] BENNETTDOB: Insurance:CARESOURCE BENNETTDOB: [facility] MEDICAIDPolicy [id number] Repository HANK ARNOLD Number: [place] [id number] [address]Nbs: (330) Date: ()
== END 2018-07-03 15:14 | disposition home or self-care (01) ==
LOC: ED 12:56
PROVIDERS: Emergency Provider Emergency Medicine; Family Provider Internal Medicine; PCP Internal Medicine
DX: R07.9 Chest pain, unspecified (principal); I10 Essential (primary) hypertension; K21.9 Gastro-esophageal reflux disease without esophagitis; F17.200 Nicotine dependence, unspecified, uncomplicated
CPT/HCPCS: 71045; 80048; 84484; 85025; 93005; 99284

== ENCOUNTER 2018-09-06 12:32 | Emergency (ER) | payer MEDICAID, SELFPAY ==
[2018-07-16 15:16] VITALS: BMI 29.7
[2018-09-06 12:32] VITALS: BP 152/98; PULSE 87; RESP 16; TEMP 36.7; O2SAT 98; BMI 28.3
--- NOTE | 2018-09-06 12:48 | RAD_ITS ---
STUDY: X-RAY - RIGHT FOOT CLINICAL: Female, 43 years old. Right foot pain TECHNIQUE: 3 view(s) of the foot. COMPARISON: None. FINDINGS: Normal talus, calcaneus, and tarsal bones. Normal visualized subtalar, talonavicular, calcaneocuboid, tarsal and tarsometatarsal articulations. Normal metatarsi. Normal metatarsophalangeal joint of the great toe. Normal tibial and fibular sesamoid bones. Normal interphalangeal joint of the great toe. Normal phalanges of the great toe. Normal second through fifth metatarsophalangeal joints. Normal interphalangeal joints and phalanges of the lesser toes. The soft tissue structures are unremarkable. RAD/Foot min 3 Views IMPRESSION: Normal x-ray examination of the foot. Electronically Signed: Chabrel Rachel DO at 13:57 EST Tel , Service support ,
--- NOTE | 2018-09-06 12:50 | ED.DCSUM_ITS ---
- ER Visit Summary Date of Service: 09/06/18 Chief Complaint: Right foot injury History of Present Illness: The patient is a 43 F who presents with a right foot injury that occurred last night. Patient states she slipped on stairs and fell. Patient states the pain is worse over the lateral aspect of the right foot and over the metatarsal heads. Patient denies any swelling. Patient admits to some tingling in her toes when she plantar flexes her foot. Patient denies any other paresthesias or weakness. Patient describes the pain as throbbing. Patient states the pain is worse with walking and better with rest. Patient denies any head injury or loss of consciousness. Physical Examination: Vital signs are stable. Patient is afebrile. Patient is in no acute distress. Musculoskeletal exam reveals tenderness over the fifth metatarsal. There is also some mild tenderness over the second through fourth metatarsal heads. There is no edema or ecchymosis. There is no deformity noted. Range of motion was slightly limited secondary to pain. Pedal pulses are equal bilateral. Capillary refill is less than 2 seconds in all digits. Sensation was intact to light touch in all digits. There is no tenderness over the ankle or proximal fibula. Test Results: X-rays of the right foot were obtained. There is no acute fracture. Emergency Department Course and Treatment: Patient was instructed to ice and elevate the right foot. Patient was instructed to take Tylenol or ibuprofen as needed for pain. Patient was instructed to follow-up with her primary care physician in 7-10 days. Patient understood and was agreeable with the plan. All questions were answered. Disposition: Discharge home Impression: Right foot sprain This note was generated with [employer] dictation software. It may contain incorrect words, spelling, and punctuation that were not noted in review of the chart prior to signing ED Disposition - Plan for ED Patient: Disposition: Home or Assisted Living Instructions: ED Sprain Foot Referrals: Donald Henderson MD [Primary Care Provider] -
[2018-09-06 14:28] VITALS: PULSE 76; RESP 14; O2SAT 97
== END 2018-09-06 14:29 | disposition home or self-care (01) ==
PROVIDERS: Emergency Provider Emergency Medicine; Family Provider Internal Medicine; PCP Internal Medicine
DX: S93.601A Unspecified sprain of right foot, initial encounter (principal); W00.1XXA Fall from stairs and steps due to ice and snow, initial encounter; Y93.9 Activity, unspecified; Y92.89 Other specified places as the place of occurrence of the external cause; Y99.9 Unspecified external cause status; I10 Essential (primary) hypertension; K21.9 Gastro-esophageal reflux disease without esophagitis; J45.909 Unspecified asthma, uncomplicated; F17.210 Nicotine dependence, cigarettes, uncomplicated
CPT/HCPCS: 73630; 99282

== ENCOUNTER 2018-09-17 12:37 | Emergency (ER) | payer MEDICAID, SELFPAY ==
[2018-09-17 12:38] VITALS: BP 137/84; PULSE 73; RESP 16; TEMP 36.2; O2SAT 97; BMI 28.8
--- NOTE | 2018-09-17 12:42 | EKG12_ITS ---
Test Reason : CP Blood Pressure : / mmHG Vent. Rate : 100 BPM Atrial Rate : 100 BPM P-R Int : 126 ms QRS Dur : 074 ms QT Int : 336 ms P-R-T Axes : 063 044 035 degrees QTc Int : 433 ms Normal sinus rhythm Normal ECG Confirmed by DONNA GAMING MD ([id number]), news video editor JESSICA SOTELO ([id number]) on 09/21/2018 2:02:17 PM Referred By: FARHAN Confirmed By:DONNA GAMING MD
--- NOTE | 2018-09-17 13:09 | RAD_ITS ---
STUDY: X-RAY CHEST REASON FOR EXAM: Female, 43 years old. Chest pain. TECHNIQUE: Single AP portable view of the chest. COMPARISON: Comparison is made with prior study dated July 03, 2018. FINDINGS: The lungs are clear and expanded. Scattered calcified granulomas. There is no demonstrated pleural abnormality. Normal size heart. Normal mediastinum and lang. Normal visualized pulmonary arteries. Normal visualized aortic arch and descending thoracic aorta. Normal visualized thoracic spine. Normal visualized ribs, clavicles, and shoulders. There is no demonstrated abnormality of the visualized soft tissue structures of the upper abdomen. RAD/Chest 1 View (Portable) IMPRESSION: No acute abnormality is seen. Electronically Signed: Aaron Zhong, at 14:01 EST , Service support ,
[2018-09-17 13:41] VITALS: O2SAT 97
[2018-09-17 13:58] LABS: Basophil# 0.03 X10^3/uL; Basophil% 0.6 % (0-1); Eosinophil# 0.04 X10^3/uL; Eosinophils% 0.8 % (0-5); Hematocrit 41.8 % (37-47); Hemoglobin 14.1 g/dl (12.0-15.0); Lymphocyte % 30.1 % (19-41); Mean Corp Hgb Conc 33.7 g/gl (32-36); Mean Corpuscular Hgb 32.4 pg (27.0-32.0); Mean Corpuscular Volume 96.1 fL (81-99); Mean Platelet Vol. 10.6 fl (6.2-12.0); Monocyte# 0.44 X10^3/uL; Monocyte% 8.8 % (0-10); Neutrophil # 2.96 X10^3/uL (2.7-7.7); Neutrophil % 59.5 % (47-70); Platelet Count 198 K/mm3 (150-450); RBC Distribution Width CV 11.9 % (11.6-14.6); RBC Distribution Width SD 40.7 fl (35.1-43.9); Red Blood Count 4.35 M/mm3 (4.2-5.4)
[2018-09-17 13:59] LABS: POSITIVE COUNT NO; POSITIVE DIFFERENTIAL NO; POSITIVE MORPHOLOGY NO
[2018-09-17 14:16] LABS: Anion Gap 6 (5-15); BUN 9 mg/dL (7-18); BUN/Creat Ratio 10.2 RATIO (10-20); Calcium,Total 8.7 mg/dL (8.5-10.1); Chloride 107 mmol/L (98-107); Creatinine, Serum 0.88 mg/dL (0.55-1.02); EST Glomerular Filtration Rate 75 mL/min (>60); Est Glom Filt Rate - Afr Amer 90 mL/min (>60); Estimated Creatinine Clearance 62.84 ml/min; Glucose 121 mg/dL (74-106); Potassium 3.4 mmol/L (3.5-5.1); Sodium Level 138 mmol/L (136-145)
[2018-09-17 14:38] VITALS: BP 116/91; PULSE 90; RESP 22; O2SAT 94
--- NOTE | 2018-09-17 15:11 | ED.VISSUMM ---
- ER Visit Summary Date of Service: 09/17/18 Chief Complaint: Chest pain History of Present Illness: The patient is a 43 F who presents with left upper chest pain that has been constant for the past 3 days. Patient describes the pain as throbbing. Patient states the pain is over the left upper chest. Patient states the pain is worse with movement and coughing. Patient states nothing seems to help with the pain. Patient does admit to some shortness of breath and a cough. Patient states she is coughing up some yellow sputum. Patient also admits to some palpitations and reflux symptoms. Physical Examination: Vital signs are stable. Patient is afebrile. Patient is in no acute distress. Oral mucosa is pink and moist. Neck is supple. Trachea is midline. There is no JVD noted. Heart was regular rate and rhythm. Lungs are clear and equal bilateral. There is tenderness over the left upper chest wall. This reproduced the patient's symptoms. Abdomen is soft. Bowel sounds are normal. There is no tenderness. There is no guarding noted. Skin is warm dry. Cranial nerves II through XII are intact. There are no focal motor or sensory deficits noted. The remaining physical exam is within normal limits. Test Results: EKG showed a normal sinus rhythm with a rate of 100. There are no acute ST or T wave changes. Portable chest x-ray does not show any acute cardiopulmonary process. CBC, basic metabolic profile, and troponin were normal. Emergency Department Course and Treatment: Patient was given aspirin. Patient was instructed to follow-up with her primary care physician in 5-7 days. Patient was advised that this is most likely musculoskeletal pain from coughing. Patient was instructed to take Tylenol or ibuprofen as needed for the pain. Patient was instructed to return if worse in any way. Patient understood and was agreeable with the plan. All questions were answered. Disposition: Discharge home Impression: Chest pain This note was generated with [employer] dictation software. It may contain incorrect words, spelling, and punctuation that were not noted in review of the chart prior to signing ED Disposition - Plan for ED Patient: Disposition: Home or Assisted Living Diagnosis: Chest pain Instructions: ED Chest Pain Atypical Unkn Cause Referrals: Donald Henderson MD [Primary Care Provider] -
--- NOTE | 2018-09-17 15:15 | ED.DCSUM_ITS ---
- ER Visit Summary Date of Service: 09/17/18 Chief Complaint: Chest pain History of Present Illness: The patient is a 43 F who presents with left upper chest pain that has been constant for the past 3 days. Patient describes the pain as throbbing. Patient states the pain is over the left upper chest. Bonnie haile states the pain is worse with movement and coughing. Patient states nothing seems to help with the pain. Patient does admit to some shortness of breath and a cough. Patient states she is coughing up some yellow sputum. Patient also admits to some palpitations and reflux symptoms. Physical Examination: Vital signs are stable. Patient is afebrile. Patient is in no acute distress. Oral mucosa is pink and moist. Neck is supple. Trachea is midline. There is no JVD noted. Heart was regular rate and rhythm. Lungs are clear and equal bilateral. There is tenderness over the left upper chest wall. This reproduced the patient's symptoms. Abdomen is soft. Bowel sounds are normal. There is no tenderness. There is no guarding noted. Skin is warm dry. Cranial nerves II through XII are intact. There are no focal motor or sensory deficits noted. The remaining physical exam is within normal limits. Test Results: EKG showed a normal sinus rhythm with a rate of 100. There are no acute ST or T wave changes. Portable chest x-ray does not show any acute cardiopulmonary process. CBC, basic metabolic profile, and troponin were normal . Emergency Department Course and Treatment: Patient was given aspirin. Patient was instructed to follow-up with her primary care physician in 5-7 days. Saad friedman was advised that this is most likely musculoskeletal pain from coughing. Patient was instructed to take Tylenol or ibuprofen as needed for the pain. Patient was instructed to return if worse in any way. Patient understood and was agreeable with the plan. All questions were answered. Disposition: Discharge home Impression: Chest pain This note was generated with [email or web address] dictation software. It may contain incorrect words, spelling, and punctuation that were not noted in review of the chart prior to signing ED Disposition - Plan for ED Patient: Disposition: Home or Assisted Living Diagnosis: Chest pain Instructions: ED Chest Pain Atypical Unkn Cause Referrals: Donald Henderson MD [Primary Care Provider] -
[2018-09-17 15:26] VITALS: BP 127/69; PULSE 84; RESP 15; O2SAT 96
== END 2018-09-17 15:30 | disposition home or self-care (01) ==
PROVIDERS: Emergency Provider Emergency Medicine; Family Provider Internal Medicine; PCP Internal Medicine
DX: R07.9 Chest pain, unspecified (principal); M54.9 Dorsalgia, unspecified; R51 Headache; M54.2 Cervicalgia; R05 Cough; R06.00 Dyspnea, unspecified; R00.2 Palpitations; J02.9 Acute pharyngitis, unspecified; I10 Essential (primary) hypertension; F17.210 Nicotine dependence, cigarettes, uncomplicated; Z82.49 Family history of ischemic heart disease and other diseases of the circulatory system; F10.20 Alcohol dependence, uncomplicated; Y90.9 Presence of alcohol in blood, level not specified
CPT/HCPCS: 71045; 80048; 84484; 85025; 93005; 99284; A4216

== ENCOUNTER → 2020-05-08 08:26 | Emergency (ER) | payer MEDICAID, SELFPAY ==
[2019-12-07 13:31] VITALS: BMI 28.8
[2020-05-08 08:27] VITALS: BP 161/95; PULSE 79; RESP 18; TEMP 37.1; O2SAT 99; BMI 26.5
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
[2020-05-08 08:51] VITALS: TEMP 37.1
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
== END | disposition home or self-care (01) ==
PROVIDERS: Emergency Provider Emergency Medicine; PCP Internal Medicine
DX: S16.1XXA Strain of muscle, fascia and tendon at neck level, initial encounter (principal); S60.222A Contusion of left hand, initial encounter; F17.200 Nicotine dependence, unspecified, uncomplicated; V43.52XA Car driver injured in collision with other type car in traffic accident, initial encounter
CPT/HCPCS: 72125; 73030; 73130; 73562; 73564; 99284

== ENCOUNTER 2020-12-12 09:55 | Day surgery (SDC) | payer MEDICAID, SELFPAY ==
[2020-12-06 15:06] VITALS: BMI 26.5
[2020-12-12] VITALS (7 sets, daily range): BP systolic 103–128; BP diastolic 74–86; PULSE 80–99; RESP 14–17; TEMP 36.2–36.9; O2SAT 93–97
[2020-12-12] MEDS: Lactated Ringers 1,000 ML 100 ML IV (10:47)
[2020-12-12] MEDS: Cefazolin 2 GM in 0.9% Normal Saline 100 ML IV (12:24)
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
--- NOTE | 2020-12-12 12:46 | PCM.DC ---
Discharge Instructions Activity Additional Activity Instructions:: Ice and elevate operative extremity next 72 hours. Keep dressing on clean and dry for 48 hours then may remove and allow warm soapy water to rinse over incision but do not submerge until sutures are out. Then apply bandaid over incision and change daily. encourage finger range of motion. Not lift more than 1/2 pound. Follow Up Care Please Follow Up With: Shaun Beach DO When: 2 weeks Test Results: Test results from this visit will be discussed in further detail at your follow-up appointment, if applicable. Discharge Plan Admission Attending Provider: Shaun Beach Primary Care Provider: Donald Henderson Discharge Orders/Prescriptions Prescriptions: No Action rwpkier-bnzovoxgywqny-nobnadvw [Excedrin Migraine] 250-250-65 mg tablet 1 tab PO PRN PRN (Reason: Migraine Headache) RF: 0 pantoprazole 40 MG tablet 40 mg PO DAILY RF: 0 bisoprolol-hydrochlorothiazide 1 TAB tablet 1 tab PO DAILY RF: 0 fluticasone propionate 1 INHALER inhaler 1 puff inhalation BID PRN (Reason: SOB) RF: 0 albuterol sulfate 1 INHALER inhaler 1 - 2 puff inhalation Q4H PRN PRN (Reason: Sob &/Or Wheezing) RF: 0 loratadine 10 mg Capsule 10 mg PO DAILY RF: 0 Disposition Discharge Orders: Discharge Patient (Routine); Ordered 12/12/20 Ordered By: Dr. Shaun Beach
--- NOTE | 2020-12-12 12:47 | OP.PCM_ITS ---
Report of Operation Surgery/Procedure Performed:: Preoperative diagnosis; right carpal tunnel syndrome Postoperative diagnosis; same Procedure: Right open carpal tunnel release Anesthesia: Local with MAC Tourniquet time; 10 minutes 250 mm Hg Complications: None Indication for procedure; This is a 45-year-old female with long-standing symptoms consistent with carpal tunnel syndrome the patient did have electrodiagnostic evidence of this and has failed conservative treatment. Risks benefits and alternatives were reviewed including risks of bleeding infection nerve artery tissue damage need for further surgery and continued pain and symptoms, hypersensitivity to scar and Pillar pain. Procedure; The patient was met in the preoperative holding area the operative extremity was identified by both patient and physician and was marked the patient was met by anesthesia and brought back to the operating room and transferred to the operating table in the supine position. Aanesthesia was started. A well-padded tourniquet was placed on the operative upper extremity. The patient was prepped and draped in the usual sterile fashion. A timeout was called to ensure the proper patient procedure and extremity were being contemplated. 0.5 percent Marcaine with epinephrine was injected into the incisional area. An Esmarch was used to exsanguinate the extremity. The tourniquet was inflated to 250 mmHg. A midline incision was made with a 15 blade scalpel between the thenar and hypothenar eminence. This was carried down through the skin and subcutaneous tissue. Toya retractors were then used, a deep blade scalpel was used to make a deep incision in the palmar aponeurosis. The toya retractors were then placed deep to this and the transverse carpal ligament was identified a perforation was made with a scalpel and a Littler scissors were used to complete the release of the transverse carpal ligament distally under direct visualization with the tips facing ulnarly until the perivascular fat was reached. Then turning our attention proximally using a tension slide technique the proximal extent of the transverse carpal ligament was released . There was noted to be hourglass configuration to the median nerve and hypertrophy of the transverse carpal ligament without other findings. The wound was thoroughly irrigated and was closed with 4-0 nylon vertical mattress stitches. Dressing was applied in the form of xeroform 4 x 4, web roll and an kash wrap. Tourniquet was let down there is no intraoperative c omplications patient tolerated the procedure well and was transferred to the PACU. All counts were correct.
== END 2020-12-12 13:52 ==
LOC: SDC 09:55 → AC 09:56
PROVIDERS: PCP Internal Medicine; Referring Provider Orthopaedic Surgery; Visit Provider Orthopaedic Surgery
PROC: (CPT 64721; principal; 2020-12-12 11:30)
DX: G56.01 Carpal tunnel syndrome, right upper limb (principal); J45.909 Unspecified asthma, uncomplicated; K21.9 Gastro-esophageal reflux disease without esophagitis; I10 Essential (primary) hypertension; F17.210 Nicotine dependence, cigarettes, uncomplicated; Z79.82 Long term (current) use of aspirin; Z88.2 Allergy status to sulfonamides; Z90.710 Acquired absence of both cervix and uterus; Z98.51 Tubal ligation status
CPT/HCPCS: 01810; 64721; 87426; C9803; J7120; J2405